=== PATIENT | female | born 1940 | race American Indian/Alaskan Native ===

== ENCOUNTER 2018-03-27 16:43 | Inpatient (IN) | payer MEDICARE, OTHER ==
[2018-03-27 16:44] VITALS: BMI 46.0
[2018-03-27] MEDS ORDERED: Sodium Chloride 0.9% 500 ML IV ONE (17:14)
[2018-03-27] MEDS ORDERED: Digoxin 500 mcg/2ml (0.5 mg/2ml) Inj IVP STA (17:16)
[2018-03-27 17:35] LABS: BASO # 0.1 K/uL (0.0-0.2); BASO % 0.5 % (0.0-2.0); EOS # 0.1 K/uL (0.0-0.7); EOS % 0.5 % (0.0-4.0); HEMOGLOBIN 15.3 g/dL (11.0-16.0); MEAN CELL VOLUME 88.7 fL (81.0-99.0); MEAN CORPUSCULAR HEMOGLOBIN 29.4 pg (27.0-31.0); MEAN CORPUSCULAR HGB CONC 33.2 g/dL (33.0-37.0); MEAN PLATELET VOLUME 7.6 fL (7.2-11.7); MONO # 0.4 K/uL (0.0-0.8); MONO % 3.6 % (0.0-10.0); NEUT # 8.6 K/uL (1.8-7.0); NEUT % 85.4 % (50.0-75.0); NRBC % 0.1 % (0.0-2.0); RBC 5.19 Mil/uL (3.80-5.20); WHITE BLOOD COUNT 10.1 K/uL (4.8-10.8)
[2018-03-27 17:43] LABS: INR 1.3; PROTHROMBIN TIME 14.3 SECONDS (9.7-12.2)
[2018-03-27 17:48] LABS: VENOUS BLOOD GAS BASE EXCESS -5.4 mmol/L (0.0-2.0); VENOUS BLOOD GAS PCO2 34 mmHg (40-60); VENOUS BLOOD GAS PO2 12 mm/Hg (30-55); VENOUS BLOOD PH 7.36 (7.32-7.43)
[2018-03-27 17:48] LABS: ALB/GLOB RATIO 0.8 (1.0-2.1); ALBUMIN 2.9 g/dL (3.5-5.0); ALT/SGPT 21 U/L (9-52); AST/SGOT 28 U/L (14-36); BLOOD UREA NITROGEN 9 mg/dL (7-17); CALCIUM 7.7 mg/dl (8.6-10.4); GFR NON-AFRICAN AMERICAN > 60
[2018-03-27] MEDS ORDERED: Digoxin 500 mcg/2ml (0.5 mg/2ml) Inj ONE (17:50)
[2018-03-27] MEDS ORDERED: Sodium Chloride 0.9% 1,000 ML ONE (17:50)
[2018-03-27 17:54] VITALS: PULSE 134
[2018-03-27] MEDS ORDERED: Potassium Chloride 20 mEq ER Tab PO STA (17:57)
[2018-03-27 17:59] LABS: CK-MB 0.52 ng/mL (0.0-3.38)
--- NOTE | 2018-03-27 18:04 | C.PDOC ---
Addendum entered and electronically signed by Tequila Zamora MD 03/27/18 21:31: Disposition Discussed With Dr.: Philippe Woods Comment: accepted the pt on his service and took over the care at 9:26 PM Doctor Will See Patient In The: ED Counseled Patient/Family Regarding: Studies Performed, Diagnosis Clinical Impression: Nausea, Vomiting, Diarrhea, Abdominal pain, Atrial fibrillation, Atrial fibrillation with RVR Disposition: HOSPITALIZED Disposition Time: 19:00 Condition: STABLE Stand Alone Forms: [facility] ([place]) Decision To Admit - Pt Status Changed To: Hospital Disposition Of: Inpatient - Admit Certification Admit to Inpatient:: After my assessment, the patient will require hospitalization for at least two midnights. This is because of the severity of symptoms shown, intensity of services needed, and/or the medical risk in this patient being treated as an outpatient. - InPatient: Physician Admission Certification:: After my assessment, the patient will requi re hospitalization for at least two midnights. This is because of the severity of symptoms shown, intensity of services needed, and/or the medical risk in this patient being treated as an outpatient. - . Bed Request Type: Telemetry Admitting Physician: Philippe Woods Patient Diagnosis: Nausea, Vomiting, Diarrhea, Abdominal pain, Atrial fibrillation, Atrial fibrillation with RVR Original Note: History Of Present Illness Patient sent to ED from [place] for evaluation of abdominal pain and several episodes of nausea/vomiting today. [place] records report coffee ground emesis, however patient denies this and states the vomit was watery. She also reports some diarrhea, and states that she has felt nauseous and had trouble keeping food down for the past several days. She admits to chronic LE edema x "several years", as well as a chronic sacral decubitus ulcer (patient is bedbound). She denies fever, chest pain, SOB, cough, dysuria. PMHx of atrial fibrillation, DM, HTN, CAD, CHF, chronic leg edema/dermatitis, breast/endometrial CA (s/p right lumpectomy and hysterectomy) Time Seen by Provider: 03/27/18 16:52 Chief Complaint (Nursing): Abdominal Pain History Per: Patient, Other ([place] records) History/Exam Limitations: no limitations Onset/Duration Of Symptoms: Days Current Symptoms Are (Timing): Still Present Severity: Moderate Quality Of Discomfort: "Pain" Associated Symptoms: Nausea, Vomiting, Diarrhea. denies: Urinary Symptoms Abnormal Vaginal Bleeding: No Past Medical History Reviewed: Historical Data, Nursing Documentation, Vital Signs Vital Signs: Last Vital Signs Temp 97.4 F L 03/27/18 17:12 Pulse 128 H 03/27/18 16:47 Resp 20 03/27/18 16:47 BP 118/82 03/27/18 16:47 Pulse Ox - Medical History PMH: Anemia, Arthritis (knees), Asthma, Bronchitis, CAD, Cardia Arrhythmia, CHF, HTN, Peripheral Edema (+3 ble edema) Denies: Depression, Chronic Kidney Disease Surgical History: Appendectomy - [facility] CLOSURE SKIN & SUBCUTANEOUS NEC (11/28/05) COMPUTERIZED TOMOGRAPHY (CT SCAN) OF PELVIC REGION (05/07/15) DRAINAGE OF PELVIC CAVITY, PERCUTANEOUS APPROACH, DIAGNOSTIC (05/07/15) EXCISE AXILLARY NODE (03/06/03) INJECT/INFUSE NEC (12/12/12) INSERTION OF INFUSION DEV INTO SUP VENA CAVA, PERC APPROACH (03/02/16) INSERTION OF VAD INTO L UP ARM SUBCU/FASCIA, PERC APPROACH (05/07/15) INTRODUCTION OF SERUM/TOX/VACCINE INTO MUSCLE, PERC APPROACH (05/07/15) LAPAROSCOP APPENDECTOMY (01/03/05) LAPAROSCOP LYSIS-PERITONEAL ADHES (01/03/05) NEBULIZER THERAPY (05/05/13) OT LAPAROSCOP LOCAL EXCIS/DESTRUCT OVARY (01/03/05) PACKED CELL TRANSFUSION (07/23/13) PERCUTAN NEEDLE BIOPSY OF BREAST (03/06/03) RADIOTHERAPEUT PROC NEC (07/23/13) REMOVAL OF INFUSION DEV FROM GREAT VESSEL, PRODUCTIVITY ENGINEER APPROACH (08/12/15) SUBTOTAL MASTECTOMY (03/06/03) TETANUS TOXOID ADMINIST (11/28/05) ULTRASONOGRAPHY OF LEFT UPPER EXTREMITY VEINS, GUIDANCE (05/07/15) ULTRASONOGRAPHY OF SUPERIOR VENA CAVA, GUIDANCE (03/02/16) Family History: States: Unknown Family Hx - Social History Hx Tobacco Use: No Hx Alcohol Use: No Hx Substance Use: No Physical Exam - Physical Exam Appears: Non-toxic, In Acute Distress (in mild discomfort ), Chronically Ill Skin: Other (see extremity exam) Eye(s): bilateral: Normal Inspection Oral Mucosa: Moist Cardiovascular: Rhythm Regular (irregularly irregular and tachycardic ) Respiratory: No Accessory Muscle Use, Rales (B/L bases), No Rhonchi, No Wheezing Gastrointestinal/Abdominal: Bowel Sounds, Soft, Tenderness (diffuse TTP, (-) McBUrney's, (-) Ruff's, midline surgical scar inferior to umbilicus, obese ), No Guarding, No Rebound Extremity: Pedal Edema (+3 pitting edema B/L LEs with chronic skin changes/stasis dermatitis) Pulses: Left Dorsalis Pedis: Normal, Right Dorsalis Pedis: Normal Neurological/Psych: Oriented x3 ED Course And Treatment - Laboratory Results Result Diagrams: 03/27/18 17:28 03/27/18 17:28 ECG: Interpreted By Me, Viewed By Me (atrial fibrillation 161 bpm with RVR, normal axis, no acute ST/T wave changes) ECG Interpretation: Abnormal O2 Sat by Pulse Oximetry: 97 (RA) Pulse Ox Interpretation: Normal Progress Note: Blood work, UA, EKG, CT abd/pelvis ordered. Patient given IV NS bolus, IV Protonix, IV Zofran. BP initially boderline and patient in rapid atrial fibrillation - IV digoxin given. Disposition - Disposition Disposition Time: 19:00 Condition: STABLE Forms: [facility] ([place]) - Clinical Impression Clinical Impression: Nausea, Vomiting, Diarrhea, Abdominal pain, Atrial fibrillation, Atrial fibrillation with RVR Physician Patient Turnover Patient Signed Over To: Tequila Zamora Handoff Comments: pending CT abd/pelvis, reassessment
[2018-03-27] MEDS ORDERED: Potassium Chloride 20 mEq ER Tab PO ONE (18:15)
[2018-03-27] MEDS ORDERED: Dextrose 5%/0.9% NS 1,000 ML IV ONE (18:33)
[2018-03-27] MEDS ORDERED: Iodixanol 320 MG/ML 100 ML BOTTLE IV ONE (18:36)
[2018-03-27] MEDS ORDERED: Potassium Chloride 20 mEq/15 ml LIQ UD ONE (18:53)
--- NOTE | 2018-03-27 19:05 | RAD ---
Date of service: 03/27/2018 PROCEDURE: Radiographs of the chest and abdomen (obstructive series) HISTORY: nausea/vomiting COMPARISON: No prior. TECHNIQUE: AP radiograph of the chest, with upright and supine radiographs of the abdomen. FINDINGS: CHEST: Enlargement of the cardiomediastinal silhouette. Prominence of the mediastinum may be related to uncoiled aorta, however alternatives including adenopathy/neoplasm cannot be excluded. Left hilar prominence. Mild pulmonary venous congestion. No significant pleural effusion. No definite pneumothorax. Right axillary clips. ABDOMEN AND PELVIS: Dilated air-filled bowel loops. IVC filter. Surgical clips within the abdomen. No definite free air. Degenerative changes. IMPRESSION: Enlarged cardiomediastinal silhouette. Left hilar prominence. Recommend CT of the chest with IV contrast for further evaluation. Mild pulmonary venous congestion. Dilated air-filled bowel loops. Small bowel obstruction is not excluded. Recommend CT of the abdomen and pelvis. IVC filter.
[2018-03-27] MEDS ORDERED: Potassium Chloride 20 mEq 100 ML ONE (19:24)
[2018-03-27] MEDS ORDERED: Piperacillin/Tazobact 3.375 gm 100 ML IVPB STA (21:17)
--- NOTE | 2018-03-27 22:29 | CP.PCM.HP ---
<Daniel Boland Kala - Last Filed: 03/28/18 08:25> History of Present Illness - History of Present Illness History of Present Illness: CC: vomiting 77 Y female w/ PMHx of multiple myocardial infraction, Afib w/ IVC filter in place, LE lymphedema, sacral ulcer, breast cancer w/ lumpectomy, ?endometrial adenocarcinoma w/ hysterectomy presented to ED from half-way following 2 episodes of black liquid vomiting. Patient states she has been vomiting for the past several months but today was the first time she noticed the black liquid vomiting. Patient states she has severe abdominal pain in the epigastric region following eating meals that also has been occurring for the past several months. Patient states she has about 1-2 loose BM per day and no constipation. Patient states she was fully functional about a year prior, but about 8 months ago, she had an episode of LOC that resulted in her become bedbound. Patient is unsure of the full medical course that resulted in becoming bedbound. ROS: Patient denies chest pain, SOB, dysuria, hematuria. Patient admits to having B/L LE leg swelling that is progressively worsening for the past several months. Additionally patient states she has a sacral ulcer present for the last several months. PMHx: multiple myocardial infraction, Afib w/ IVC filter in place, LE lymphedema, sacral ulcer, breast cancer, ?endometrial adenocarcinoma Meds: PSHx: Appendectomy, tonsilectomy, lumpectomy in R breast, hysterectomy Allergies: Erythromycin base - FHx: Father in 40s from [place], mother in 50s Social: Patient denies tobacco use, drug use Patient is Full Code Contact her daughter Eli @ [phone] in the event patient is unable to make medical decisions herself. Present on Admission - Present on Admission Any Indicators Present on Admission: Yes History of DVT/PE: No History of Uncontrolled Diabetes: No Urinary Catheter: No Decubitus Ulcer Present: Yes Decubitus Ulcer Location: sacrum Decubitus Ulcer Stage: Unstageable Review of Systems - Constitutional Constitutional: absent: Anorexia, Chills, Daytime Sleepiness - EENT Eyes: absent: Blind Spots, Blurred Vision Ears: absent: Disequilibrium - Respiratory Respiratory: absent: Dyspnea - Psychiatric Psychiatric: absent: Anxiety Past Patient History - Infectious Disease Hx of Infectious Diseases: None - Tetanus Immunizations Tetanus Immunization: Unknown - Past Social History Smoking Status: Never Smoked - CARDIAC Hx Cardia Arrhythmia: Yes Hx Congestive Heart Failure: Yes Hx Hypertension: Yes Hx Peripheral Edema: Yes (+3 ble edema) - PULMONARY Hx Asthma: Yes Hx Bronchitis: Yes - NEUROLOGICAL Hx Neurological Disorder: Yes (right hand/arm tremors) - HEENT Hx HEENT Problems: (wears glasses) - RENAL Hx Chronic Kidney Disease: No - ENDOCRINE/METABOLIC Hx Endocrine Disorders: No - HEMATOLOGICAL/ONCOLOGICAL Hx Anemia: Yes - INTEGUMENTARY Hx Dermatological Problems: Yes (HEEL PRESSURE ULCER ,L DTI AND STAGE 1 LEFT LATERAL SIDE,MASD SKIN FOLDS,) Other/Comment: INCONTINENCE ASSOCIATED SKIN DERMATITIS MULTIPLE BILATERAL BUTTOCKS , left lower abd pinhole wound that drains ysterectomy surgical juan pablo +mrsa 06/11/15, ble +3 edema ble edema redness dry flakey skin with weeping no open wounds, skin is discolored, both feet dry flakey skin, multiple scars from boils that healed to lower donald, buttocks redness excoriated, pt refusing to turn for assesment - MUSCULOSKELETAL/RHEUMATOLOGICAL Hx Arthritis: Yes (knees) - GASTROINTESTINAL Hx Gastrointestinal Disorders: No - GENITOURINARY/GYNECOLOGICAL Hx Incontinence: Yes Other/Comment: vaginal bleeding on and off x 14 yrs has stopped after hyst in 2014 - PSYCHIATRIC Hx Depression: No Hx Substance Use: No - SURGICAL HISTORY Hx Appendectomy: Yes - ANESTHESIA Hx Anesthesia: Yes Hx Anesthesia Reactions: No Meds Allergies/Adverse Reactions: Allergies Allergy/AdvReac Type Severity Reaction Status Date / Time erythromycin base Allergy ANAPHYLAXIS Verified 03/27/18 16:58 Physical Exam - Constitutional Appears: Non-toxic, No Acute Distress - Head Exam Head Exam: ATRAUMATIC, NORMAL INSPECTION, NORMOCEPHALIC - Eye Exam Eye Exam: EOMI, Normal appearance - ENT Exam ENT Exam: Mucous Membranes Moist Additional comments: Missing teeth - Neck Exam Neck exam: Positive for: Normal Inspection - Respiratory Exam Respiratory Exam: Decreased Breath Sounds. absent: Rales, Rhonchi, Wheezes - Cardiovascular Exam Cardiovascular Exam: +S1, +S2. absent: Systolic Murmur - GI/Abdominal Exam GI & Abdominal Exam: Normal Bowel Sounds, Soft. absent: Distended - Extremities Exam Extremities exam: Positive for: calf tenderness, joint swelling, pedal edema, tenderness, pedal pulses present Additional comments: sever lymphedemia - Back Exam Additional comments: unstagable sacral ulcer - Neurological Exam Neurological exam: Alert, CN II-XII Intact, Oriented x3 - Psychiatric Exam Psychiatric exam: Normal Affect, Normal Mood - Skin Skin Exam: Dry, Intact, Normal Color, Warm Results - Vital Signs Recent Vital Signs: Last Vital Signs Temp 97.4 F L 03/27/18 17:12 Pulse 71 03/27/18 20:10 Resp 16 03/27/18 20:10 BP 131/71 03/27/18 20:10 Pulse Ox 97 03/27/18 20:10 - Labs Result Diagrams: 03/27/18 17:28 03/27/18 17:28 Labs: Laboratory Results - last 24 hr 03/27/18 03/27/18 03/27/18 17:28 17:28 17:28 WBC 10.1 RBC 5.19 Hgb 15.3 Hct 46.0 MCV 88.7 MCH 29.4 MCHC 33.2 RDW 17.0 H Plt Count 430 H MPV 7.6 Neut % (Auto) 85.4 H Lymph % (Auto) 10.0 L Bath % (Auto) 3.6 Eos % (Auto) 0.5 Baso % (Auto) 0.5 Neut # (Auto) 8.6 H Lymph # (Auto) 1.0 Bath # (Auto) 0.4 Eos # (Auto) 0.1 Baso # (Auto) 0.1 PT 14.3 H INR 1.3 APTT 38 H pO2 VBG pH VBG pCO2 VBG HCO3 VBG Total CO2 VBG O2 Sat (Calc) VBG Base Excess VBG Potassium Glucose Lactate FiO2 Crit Value Called To Crit Value Called By Crit Value Read Back Blood Gas Notified Time Sodium 144 Potassium 3.1 L Chloride 103 Carbon Dioxide 30 Anion Gap 14 BUN 9 Creatinine 0.6 L Est GFR ( Amer) > 60 Est GFR (Non-Af Amer) > 60 Random Glucose 97 Calcium 7.7 L Total Bilirubin 0.9 AST 28 ALT 21 Alkaline Phosphatase 152 H Total Creatine Kinase 30 CK-MB (Mass) 0.52 Troponin I < 0.0120 Total Protein 6.3 Albumin 2.9 L Globulin 3.5 Albumin/Globulin Ratio 0.8 L Lipase Venous Blood Potassium Blood Type Antibody Screen Antibody Identification 10/23/18 10/23/18 10/23/18 17:40 17:43 21:00 WBC RBC Hgb Hct MCV MCH MCHC RDW Plt Count MPV Neut % (Auto) Lymph % (Auto) Bath % (Auto) Eos % (Auto) Baso % (Auto) Neut # (Auto) Lymph # (Auto) Bath # (Auto) Eos # (Auto) Baso # (Auto) PT INR APTT pO2 12 L VBG pH 7.36 VBG pCO2 34 L VBG HCO3 18.4 VBG Total CO2 20.2 L VBG O2 Sat (Calc) 16.8 L VBG Base Excess -5.4 L VBG Potassium 2.6 L Glucose 23 L* Lactate 0.5 L FiO2 21.0 Crit Value Called To Dr villalba Crit Value Called By [facility] Crit Value Read Back Y Blood Gas Notified Time 1748 Sodium 139.0 Potassium Chloride 104.0 Carbon Dioxide Anion Gap BUN Creatinine Est GFR ( Amer) Est GFR (Non-Af Amer) Random Glucose Calcium Total Bilirubin AST ALT Alkaline Phosphatase Total Creatine Kinase CK-MB (Mass) Troponin I Total Protein Albumin Globulin Albumin/Globulin Ratio Lipase 95 Venous Blood Potassium 2.6 L Blood Type B NEGATIVE Antibody Screen Positive Antibody Identification Anti D Assessment & Plan - Assessment and Plan (Free Text) Assessment: 77 Y female w/ PMHx of multiple myocardial infraction, Afib w/ IVC filter in place, LE lymphedema, sacral ulcer, breast cancer w/ lumpectomy, ?endometrial adenocarcinoma w/ hysterectomy presented to ED from half-way following 2 episodes of black liquid vomiting Afib w/ RVR - digoxin 0.5 mg given in ED, resolved - continue to monitor - F/u Cardio, Dr. Bryant recs - c/w home medications: metoprolol tartrate 50 mg BID Lasix 40 mg daily Bumex 1mg daily - F/u Echo Pneumonia - CT: opacity in right lower lobe, consistent w/ developing pneumonia. fatty liver, probable left adenoma, IVC filter in place, diffuse anasarca, probably partial small bowel - WBC: 10.1, Temp 97.5 - Zosyn 3.375 mg Q6H - F/u blood cultures - F/u strep pneumonia, legionella, mycoplasma Abdominal pain Partial SBO vs Peptic Ulcer/Gastritis - Stable H/H: 15.3/46 - Xray: Enlarged cardiomediastinal silhouette. Left hilar prominence. Recommend CT of the chest with IV contrast for further evaluation. Mild pulmonary venous congestion. Dilated air-filled bowel loops. Small bowel obstruction is not excluded. Recommend CT of the abdomen and pelvis. IVC filter. - CT : fatty liver, probable left adenoma, IVC filter in place, diffuse anasarca, probably partial small bowel - Protonix 40 mg Q12 Sacral ulcer - Wound care - Turn & reposition Q4H - F/u wound culture Lymphadema - Wound care - Turn & reposition Q4H - Lasix 40 mg daily - Bumex 1mg daily Constipation - C/w home medicine Loperamide 1mg Q6 PRN Prophylaxis - GI: protonix 40 mg Q12 - F/u PT/OT - Liquid diet <Philippe Woods - Last Filed: 03/29/18 06:36> Results - Vital Signs Recent Vital Signs: Last Vital Signs Temp 97.8 F 03/28/18 23:10 Pulse 85 03/29/18 04:05 Resp 20 03/28/18 23:10 BP 102/58 L 03/28/18 23:10 Pulse Ox 95 03/28/18 23:10 - Labs Result Diagrams: 03/28/18 07:44 03/28/18 07:44 Labs: Laboratory Results - last 24 hr 03/27/18 03/28/18 03/28/18 17:55 07:44 07:44 WBC 7.2 RBC 4.93 Hgb 14.8 Hct 44.0 MCV 89.2 MCH 29.9 MCHC 33.5 RDW 16.9 H Plt Count 333 MPV 7.7 Neut % (Auto) 71.2 Lymph % (Auto) 19.8 L Bath % (Auto) 6.0 Eos % (Auto) 2.2 Baso % (Auto) 0.8 Neut # (Auto) 5.2 Lymph # (Auto) 1.4 Bath # (Auto) 0.4 Eos # (Auto) 0.2 Baso # (Auto) 0.1 PT INR Sodium 144 Potassium 3.0 L Chloride 107 Carbon Dioxide 27 Anion Gap 13 BUN 8 Creatinine 0.6 L Est GFR ( Amer) > 60 Est GFR (Non-Af Amer) > 60 POC Glucose (mg/dL) 72 Random Glucose 62 L Hemoglobin A1c Calcium 7.2 L Phosphorus 2.6 Magnesium 1.0 L* Total Bilirubin 1.0 AST 20 ALT 21 Alkaline Phosphatase 121 NT-Pro-B Natriuret Pep 4370 H Total Protein 5.6 L Albumin 2.5 L Globulin 3.2 Albumin/Globulin Ratio 0.8 L Mycoplasma pneumon IgM 03/28/18 03/28/18 03/28/18 07:52 11:24 13:49 WBC RBC Hgb Hct MCV MCH MCHC RDW Plt Count MPV Neut % (Auto) Lymph % (Auto) Bath % (Auto) Eos % (Auto) Baso % (Auto) Neut # (Auto) Lymph # (Auto) Bath # (Auto) Eos # (Auto) Baso # (Auto) PT INR Sodium Potassium Chloride Carbon Dioxide Anion Gap BUN Creatinine Est GFR ( Amer) Est GFR (Non-Af Amer) POC Glucose (mg/dL) 87 Random Glucose Hemoglobin A1c 5.1 Calcium Phosphorus Magnesium Total Bilirubin AST ALT Alkaline Phosphatase NT-Pro-B Natriuret Pep Total Protein Albumin Globulin Albumin/Globulin Ratio Mycoplasma pneumon IgM Negative 03/28/18 03/28/18 15:27 16:34 WBC RBC Hgb Hct MCV MCH MCHC RDW Plt Count MPV Neut % (Auto) Lymph % (Auto) Bath % (Auto) Eos % (Auto) Baso % (Auto) Neut # (Auto) Lymph # (Auto) Bath # (Auto) Eos # (Auto) Baso # (Auto) PT 15.9 H INR 1.5 Sodium Potassium Chloride Carbon Dioxide Anion Gap BUN Creatinine Est GFR ( Amer) Est GFR (Non-Af Amer) POC Glucose (mg/dL) 74 Random Glucose Hemoglobin A1c Calcium Phosphorus Magnesium Total Bilirubin AST ALT Alkaline Phosphatase NT-Pro-B Natriuret Pep Total Protein Albumin Globulin Albumin/Globulin Ratio Mycoplasma pneumon IgM Assessment & Plan - Date & Time Date: 03/29/18 (I have seen and examined the patient. I agree with the findings and plan of care as documented by Dr. Boland. Patient with atrial fib with RVR. Digoxin given in ED with adequate response. Monitor on tele. Abdominal pain with partial small bowel obstruction. Consult to surgery. Pneumonia. Zosyn for now. Monitor hemodynamic status. Monitor for acute changes.) Time: 06:34 Attending/Attestation - Attestation I have personally seen and examined this patient.: Yes I have fully participated in the care of the patient.: Yes I have reviewed all pertinent clinical information: Yes
[2018-03-27] MEDS ORDERED: Lactated Ringer's 1,000 ML IV SCH (23:30)
[2018-03-28] MEDS ORDERED: Oxycodone/Acetaminophen 5/325 mg Tab PO PRN (03:50)
--- NOTE | 2018-03-28 03:58 | CP.PCM.CON ---
History of Present Illness - History of Present Illness History of Present Illness: Surgery 77 Y female w/ PMHx of multiple myocardial infraction, Afib on Digoxin, IVC filter in place, LE lymphedema, sacral ulcer, breast cancer w/ lumpectomy, ?endometrial adenocarcinoma w/ hysterectomy [facility] following coffee ground color emesis. Patient states she has been vomiting for the past several months but today was the first time she noticed the black liquid vomiting. pain in the epigastric region following eating meals that also has been occurring for the past several months. Patient states she has about 1-2 loose BM per day and no constipation. Denies bloody BM. Pt takes multiple medication and doesn;t know what meds she takes. Pt had not seen GI. Denies fever, CP, SOB. PMHx: multiple myocardial infraction, Afib w/ IVC filter in place, LE lymphedema, sacral ulcer, breast cancer, ?endometrial adenocarcinoma Meds: PSHx: Appendectomy, tonsilectomy, lumpectomy in R breast, hysterectomy Allergies: Erythromycin base - FHx: Father in 40s from [place], mother in 50s Social: Patient denies tobacco use, drug use Review of Systems - Review of Systems Review of Systems: see hpi Past Patient History - Infectious Disease Hx of Infectious Diseases: None - Tetanus Immunizations Tetanus Immunization: Unknown - Past Medical History & Family History Past Medical History?: Yes - Past Social History Smoking Status: Never Smoked - CARDIAC Hx Cardia Arrhythmia: Yes Hx Congestive Heart Failure: Yes Hx Hypertension: Yes Hx Peripheral Edema: Yes (+3 ble edema) - PULMONARY Hx Asthma: Yes Hx Bronchitis: Yes - NEUROLOGICAL Hx Neurological Disorder: Yes (right hand/arm tremors) - HEENT Hx HEENT Problems: (wears glasses) - RENAL Hx Chronic Kidney Disease: No - ENDOCRINE/METABOLIC Hx Endocrine Disorders: No - HEMATOLOGICAL/ONCOLOGICAL Hx Anemia: Yes - INTEGUMENTARY Hx Dermatological Problems: Yes (HEEL PRESSURE ULCER ,L DTI AND STAGE 1 LEFT LATERAL SIDE,MASD SKIN FOLDS,) Other/Comment: INCONTINENCE ASSOCIATED SKIN DERMATITIS MULTIPLE BILATERAL BUTTOCKS , left lower abd pinhole wound that drains ysterectomy surgical juan pablo +mrsa 06/11/15, ble +3 edema ble edema redness dry flakey skin with weeping no open wounds, skin is discolored, both feet dry flakey skin, multiple scars from boils that healed to lower donald, buttocks redness excoriated, pt refusing to turn for assesment - MUSCULOSKELETAL/RHEUMATOLOGICAL Hx Arthritis: Yes (knees) - GASTROINTESTINAL Hx Gastrointestinal Disorders: No - GENITOURINARY/GYNECOLOGICAL Hx Incontinence: Yes Other/Comment: vaginal bleeding on and off x 14 yrs has stopped after hyst in 2015 - PSYCHIATRIC Hx Depression: No Hx Substance Use: No - SURGICAL HISTORY Hx Appendectomy: Yes - ANESTHESIA Hx Anesthesia: Yes Hx Anesthesia Reactions: No Meds Allergies/Adverse Reactions: Allergies Allergy/AdvReac Type Severity Reaction Status Date / Time erythromycin base Allergy ANAPHYLAXIS Verified 03/27/18 16:58 - Medications Medications: Current Medications Dextrose/Sodium Chloride (Dextrose 5%/0.9% Ns 1000 Ml) 1,000 mls @ 100 mls/hr IV .Q10H ONE Stop: 03/28/18 04:32 Last Admin: 03/27/18 23:42 Dose: 100 mls/hr Ondansetron HCl (Zofran Inj) 4 mg IVP Q4 PRN PRN Reason: Nausea/Vomiting Oxycodone/Acetaminophen (Percocet 5/325 Mg Tab) 2 tab PO Q4H PRN PRN Reason: Pain, moderate (4-7) Stop: 03/31/18 03:51 Pantoprazole Sodium (Protonix Inj) 40 mg IVP Q12H RAFAEL Physical Exam - Constitutional Appears: No Acute Distress - Head Exam Head Exam: ATRAUMATIC, NORMAL INSPECTION, NORMOCEPHALIC - Eye Exam Eye Exam: EOMI, Normal appearance, PERRL Pupil Exam: NORMAL ACCOMODATION, PERRL - ENT Exam ENT Exam: Mucous Membranes Moist, Normal Exam - Neck Exam Neck exam: Positive for: Normal Inspection - Respiratory Exam Respiratory Exam: NORMAL BREATHING PATTERN - Cardiovascular Exam Cardiovascular Exam: Tachycardia - GI/Abdominal Exam GI & Abdominal Exam: Soft. absent: Distended, Firm, Guarding, Hernia, Rigid, Tenderness - Exam Exam: NORMAL INSPECTION - Back Exam Back exam: NORMAL INSPECTION - Neurological Exam Neurological exam: Alert, Oriented x3 - Psychiatric Exam Psychiatric exam: Normal Affect, Normal Mood - Skin Skin Exam: Normal Color, Warm Results - Vital Signs Recent Vital Signs: Last Vital Signs Temp 97.5 F L 03/28/18 00:56 Pulse 61 03/28/18 03:32 Resp 20 03/28/18 00:56 BP 98/64 L 03/28/18 00:56 Pulse Ox 100 03/27/18 23:40 - Labs Result Diagrams: 03/27/18 17:28 03/27/18 17:28 Labs: Laboratory Results - last 24 hr 03/27/18 03/27/18 03/27/18 17:28 17:28 17:28 WBC 10.1 RBC 5.19 Hgb 15.3 Hct 46.0 MCV 88.7 MCH 29.4 MCHC 33.2 RDW 17.0 H Plt Count 430 H MPV 7.6 Neut % (Auto) 85.4 H Lymph % (Auto) 10.0 L [place] % (Auto) 3.6 Eos % (Auto) 0.5 Baso % (Auto) 0.5 Neut # (Auto) 8.6 H Lymph # (Auto) 1.0 [place] # (Auto) 0.4 Eos # (Auto) 0.1 Baso # (Auto) 0.1 PT 14.3 H INR 1.3 APTT 38 H pO2 VBG pH VBG pCO2 VBG HCO3 VBG Total CO2 VBG O2 Sat (Calc) VBG Base Excess VBG Potassium Glucose Lactate FiO2 Crit Value Called To Crit Value Called By Crit Value Read Back Blood Gas Notified Time Sodium 144 Potassium 3.1 L Chloride 103 Carbon Dioxide 30 Anion Gap 14 BUN 9 Creatinine 0.6 L Est GFR ( Amer) > 60 Est GFR (Non-Af Amer) > 60 Random Glucose 97 Calcium 7.7 L Total Bilirubin 0.9 AST 28 ALT 21 Alkaline Phosphatase 152 H Total Creatine Kinase 30 CK-MB (Mass) 0.52 Troponin I < 0.0120 Total Protein 6.3 Albumin 2.9 L Globulin 3.5 Albumin/Globulin Ratio 0.8 L Lipase Venous Blood Potassium Blood Type Antibody Screen Antibody Identification Antigen Identification 03/27/18 03/27/18 03/27/18 17:40 17:43 21:00 WBC RBC Hgb Hct MCV MCH MCHC RDW Plt Count MPV Neut % (Auto) Lymph % (Auto) [place] % (Auto) Eos % (Auto) Baso % (Auto) Neut # (Auto) Lymph # (Auto) [place] # (Auto) Eos # (Auto) Baso # (Auto) PT INR APTT pO2 12 L VBG pH 7.36 VBG pCO2 34 L VBG HCO3 18.4 VBG Total CO2 20.2 L VBG O2 Sat (Calc) 16.8 L VBG Base Excess -5.4 L VBG Potassium 2.6 L Glucose 23 L* Lactate 0.5 L FiO2 21.0 Crit Value Called To Dr villalba Crit Value Called By Cosme ugarte Crit Value Read Back Y Blood Gas Notified Time 1748 Sodium 139.0 Potassium Chloride 104.0 Carbon Dioxide Anion Gap BUN Creatinine Est GFR ( Amer) Est GFR (Non-Af Amer) Random Glucose Calcium Total Bilirubin AST ALT Alkaline Phosphatase Total Creatine Kinase CK-MB (Mass) Troponin I Total Protein Albumin Globulin Albumin/Globulin Ratio Lipase 95 Venous Blood Potassium 2.6 L Blood Type B NEGATIVE Antibody Screen Positive Antibody Identification Anti D Antigen Identification C Antigen - NEGATIVE Assessment & Plan - Assessment and Plan (Free Text) Assessment: sxs are more consistent with hiatal hernia/gastritis : epigastric pain, coffee ground emesis, regular BM. CT shows possible partial SBO -CLD -PPI IV BID -Recommend GI -Pain/nausea control -Pain control: avoid NSAIDs Will DW Dr. Zimmerman
[2018-03-28 07:58] LABS: BASO # 0.1 K/uL (0.0-0.2); BASO % 0.8 % (0.0-2.0); EOS # 0.2 K/uL (0.0-0.7); EOS % 2.2 % (0.0-4.0); HEMOGLOBIN 14.8 g/dL (11.0-16.0); LYMPH # 1.4 K/uL (1.0-4.3); LYMPH % 19.8 % (20.0-40.0); MEAN CELL VOLUME 89.2 fL (81.0-99.0); MEAN CORPUSCULAR HEMOGLOBIN 29.9 pg (27.0-31.0); MEAN CORPUSCULAR HGB CONC 33.5 g/dL (33.0-37.0); MEAN PLATELET VOLUME 7.7 fL (7.2-11.7); MONO # 0.4 K/uL (0.0-0.8); NEUT # 5.2 K/uL (1.8-7.0); NEUT % 71.2 % (50.0-75.0); RBC 4.93 Mil/uL (3.80-5.20); RED CELL DISTRIBUTION WIDTH 16.9 % (11.5-14.5); WHITE BLOOD COUNT 7.2 K/uL (4.8-10.8)
[2018-03-28 08:38] LABS: ALB/GLOB RATIO 0.8 (1.0-2.1); ALBUMIN 2.5 g/dL (3.5-5.0); ALT/SGPT 21 U/L (9-52); AST/SGOT 20 U/L (14-36); BLOOD UREA NITROGEN 8 mg/dL (7-17); CALCIUM 7.2 mg/dl (8.6-10.4); GFR NON-AFRICAN AMERICAN > 60
[2018-03-28 08:44] LABS: B-TYPE NATRIURETIC PEPTIDE 4370 pg/mL (0-900)
[2018-03-28] MEDS ORDERED: Potassium Chloride 20 mEq ER Tab PO ONE (08:57)
[2018-03-28] MEDS ORDERED: Magnesium Sulfate 1 gm in D5W 1 GM/100 ML BAG IVPB ONE (08:59)
[2018-03-28] MEDS ORDERED: Potassium Chloride 20 mEq/15 ml LIQ UD PO ONE (09:00)
[2018-03-28] MEDS: Piperacillin/Tazobact 3.375 GM in Sodium Chloride 100 ML IVPB SCH ×3 (09:10→21:41)
[2018-03-28] MEDS: Magnesium Sulfate 1 gm in D5W 1 GM/100 ML BAG IVPB SCH ×2 (09:50→10:02)
[2018-03-28] MEDS ORDERED: Azithromycin 500 MG in Sodium Chloride 0.9% 250 ML IVPB SCH (10:00)
[2018-03-28] MEDS ORDERED: Pantoprazole 40 mg EC Tab PO SCH (10:00)
[2018-03-28] MEDS: Lactobacillus Acidophilus 500 MU Cap PO SCH ×3 (10:21→20:25)
[2018-03-28 10:33] VITALS: RESP 20
--- NOTE | 2018-03-28 11:15 | CP.PCM.CON ---
History of Present Illness - History of Present Illness History of Present Illness: palliative consult requested by Doctor Paredes for Code status discussion Patient is a 77 yo lady admitted from [place] with coffee ground emesis and abdominal pain. Patient reported being nauseated for several months now. Patient is not ab le to tolerate food and reports losing about 102 lb/year. The symptoms of nausea and abdominal pain begun after LANDY surgery patient had a year ago. Patient is able to tolerate only certain food brought in to [place] from outside. Patient attributes her weight loss to a [place] food which she does not like. Abd X Ray on admission suggested possible SBO and CT scan was suggested. Blood sugar on admission very low , only 23. patient started on liquid diet and IV fluids. K 30., Mg 10.. Both are being replaced. PMH: chronic LEs edema, bed boud X 1 year now, A Fib, multiple MIs, breast/ endometrium cancer, S/P right mastectomy and LANDY, Hx of falls, last time she was on the floor X 3 days unable to get up , before she was found by her son. Soc. Hx: , [place] resident, has 2 sons and 2 daughters Fa. Hx: father at age of 40 from [place] and mother at age of 50 Review of Systems - Constitutional Constitutional: Weight Loss - EENT Eyes: absent: As Per HPI, Blind Spots, Blurred Vision, Change in Vision, Decreased Night Vision, Diplopia, Discharge, Dry Eye, Exophthalmos, Floaters, Ir ritation, Itchy Eyes, Loss of Peripheral Vision, Pain, Photophobia, Requires Corrective Lenses, Sees Flashes, Spots in Vision, Tunnel Vision, Other Visual Disturbances, Loss of Vision, Other Ears: absent: As Per HPI, Decreased Hearing, Ear Discharge, Ear Pain, Tinnitus, Abnormal Hearing, Disequilibrium, Dizziness, Other Nose/Mouth/Throat: absent: As Per HPI, Epistaxis, Nasal Congestion, Nasal Discharge, Nasal Obstruction, Nasal Trauma, Nose Pain, Post Nasal Drip, Sinus Pain, Sinus Pressure, Bleeding Gums, Change in Voice, Dental Pain, Dry Mouth, Dysphagia, Halitosis, Hoarsness, Lip Swelling, Mouth Lesions, Mouth Pain, Odynophagia, Sore Throat, Throat Swelling, Tongue Swelling, Facial Pain, Neck Pain, Neck Mass, Other - Breasts Additional comments: right mastectomy - Cardiovascular Cardiovascular: Edema, Leg Edema, Pedal Edema - Respiratory Respiratory: absent: As Per HPI, Cough, Dyspnea, Hemoptysis, Dyspnea on Exertio n, Wheezing, Snoring, Stridor, Pain on Inspiration, Chest Congestion, Excessive Mucous Production, Change in Mucous Color, Pain with Coughing, Other - Gastrointestinal Gastrointestinal: Abdominal Pain, Nausea, Vomiting - Genitourinary Genitourinary: absent: As Per HPI, Change in Urinary Stream, Difficulty Urinating, Dysuria, Flank Pain, Hematuria, Pyuria, Nocturia, Urinary Incontinence, Urinary Frequency, Urinary Hesitance, Urinary Urgency, Voiding Freq/Small Amts, Freq UTI, Hx Renal/Bladder Calculi, Hx /Renal Surgery, Bladder Distension, Other - Reproductive: Female Reproductive:Female: Post Menopausal - Menstruation Menstruation: Post Menopausal - Musculoskeletal Musculoskeletal: Abnormal Gait, Joint Swelling, Limited Range of Motion, Muscle Weakness, Stiffness - Integumentary Additional comments: edema and discoloration of LEs - Neurological Neurological: Frequent Falls - Psychiatric Psychiatric: Anxiety, Depression - Endocrine Endocrine: absent: As Per HPI, Change in Body Appearance, Change in Libido, Cold Intolorance, Deepening of Voice, Excessive Sweating, Fatigue, Flushing, Heat Intolorance, Increase in Ring/Shoe/Hat Size, Palpitations, Polydipsia, Polyphagia, Polyuria, Other - Hematologic/Lymphatic Hematologic: absent: As Per HPI, Easy Bleeding, Easy Bruising, Lymphadenopathy, Other Past Patient History - Infectious Disease Hx of Infectious Diseases: None - Tetanus Immunizations Tetanus Immunization: Unknown - Past Medical History & Family History Past Medical History?: Yes - Past Social History Smoking Status: Never Smoked - CARDIAC Hx Cardia Arrhythmia: Yes Hx Congestive Heart Failure: Yes Hx Hypertension: Yes Hx Peripheral Edema: Yes (+3 ble edema) - PULMONARY Hx Asthma: Yes Hx Bronchitis: Yes - NEUROLOGICAL Hx Neurological Disorder: Yes (right hand/arm tremors) - HEENT Hx HEENT Problems: (wears glasses) - RENAL Hx Chronic Kidney Disease: No - ENDOCRINE/METABOLIC Hx Endocrine Disorders: No - HEMATOLOGICAL/ONCOLOGICAL Hx Anemia: Yes - INTEGUMENTARY Hx Dermatological Problems: Yes (HEEL PRESSURE ULCER ,L DTI AND STAGE 1 LEFT LATERAL SIDE,MASD SKIN FOLDS,) Other/Comment: INCONTINENCE ASSOCIATED SKIN DERMATITIS MULTIPLE BILATERAL BUTTOCKS , left lower abd pinhole wound that drains ysterectomy surgical juan pablo +mrsa 06/11/15, ble +3 edema ble edema redness dry flakey skin with weeping no open wounds, skin is discolored, both feet dry flakey skin, multiple scars from boils that healed to lower donald, buttocks redness excoriated, pt refusing to turn for assesment - MUSCULOSKELETAL/RHEUMATOLOGICAL Hx Arthritis: Yes (knees) - GASTROINTESTINAL Hx Gastrointestinal Disorders: No - GENITOURINARY/GYNECOLOGICAL Hx Incontinence: Yes Other/Comment: vaginal bleeding on and off x 14 yrs has stopped after hyst in 2014 - PSYCHIATRIC Hx Depression: No Hx Substance Use: No - SURGICAL HISTORY Hx Appendectomy: Yes - ANESTHESIA Hx Anesthesia: Yes Hx Anesthesia Reactions: No Meds Allergies/Adverse Reactions: Allergies Allergy/AdvReac Type Severity Reaction Status Date / Time erythromycin base Allergy ANAPHYLAXIS Verified 03/27/18 16:58 - Medications Medications: Current Medications Bumetanide (Bumex) 1 mg PO DAILY [facility] Last Admin: 03/28/18 10:21 Dose: Not Given Furosemide (Lasix) 40 mg PO DAILY [facility] Last Admin: 03/28/18 10:01 Dose: Not Given Gabapentin (Neurontin) 300 mg PO BID [facility] Last Admin: 03/28/18 10:21 Dose: Not Given Heparin Sodium (Porcine) (Heparin) 5,000 units SC Q8 [facility] Piperacillin Sod/Tazobactam (Sod 3.375 gm/ Sodium Chloride) 100 mls @ 200 mls/hr IVPB Q6H [facility]; Protocol Last Admin: 03/28/18 09:10 Dose: Not Given Potassium Chloride (Potassium Chloride 20 Meq/100 Ml) 20 meq in 100 mls @ 50 mls/hr IVPB ONCE ONE Stop: 03/28/18 11:29 Last Admin: 03/28/18 09:50 Dose: 50 mls/hr Lactobacillus Acidophilus (Bacid Acidophilus) 1 cap PO BID [facility] Last Admin: 03/28/18 10:21 Dose: Not Given Loperamide HCl (Imodium) 1 mg PO Q6H PRN PRN Reason: Diarrhea Metoprolol Tartrate (Lopressor) 50 mg PO BID [facility] Last Admin: 03/28/18 10:01 Dose: Not Given Ondansetron HCl (Zofran Inj) 4 mg IVP Q4 PRN PRN Reason: Nausea/Vomiting Last Admin: 03/28/18 05:46 Dose: 4 mg Oxycodone/Acetaminophen (Percocet 5/325 Mg Tab) 2 tab PO Q4H PRN PRN Reason: Pain, moderate (4-7) Stop: 03/31/18 03:51 Pantoprazole Sodium (Protonix Inj) 40 mg IVP Q12H [facility] Last Admin: 03/28/18 04:14 Dose: 40 mg Physical Exam - Constitutional Appears: No Acute Distress, Chronically Ill - Head Exam Head Exam: ATRAUMATIC, NORMAL INSPECTION, NORMOCEPHALIC - Eye Exam Eye Exam: EOMI, Normal appearance, PERRL Pupil Exam: NORMAL ACCOMODATION, PERRL - ENT Exam ENT Exam: Mucous Membranes Moist, Normal Exam - Neck Exam Neck exam: Positive for: Normal Inspection - Respiratory Exam Respiratory Exam: Decreased Breath Sounds, NORMAL BREATHING PATTERN - Cardiovascular Exam Cardiovascular Exam: Tachycardia, REGULAR RHYTHM - GI/Abdominal Exam GI & Abdominal Exam: Normal Bowel Sounds, Soft - Rectal Exam Rectal Exam: Deferred - Extremities Exam Extremities exam: Positive for: joint swelling, pedal edema, pedal pulses present - Back Exam Back exam: NORMAL INSPECTION - Neurological Exam Neurological exam: Alert, Oriented x3 - Psychiatric Exam Psychiatric exam: Anxious - Skin Skin Exam: Dry, Mottled Results - Vital Signs Recent Vital Signs: Last Vital Signs Temp 97.5 F L 03/28/18 00:56 Pulse 78 03/28/18 07:38 Resp 20 03/28/18 04:44 BP 96/63 L 03/28/18 04:44 Pulse Ox 100 03/27/18 23:40 - Labs Result Diagrams: 03/28/18 07:44 03/28/18 07:44 Labs: Laboratory Results - last 24 hr 03/27/18 03/27/18 03/27/18 17:28 17:28 17:28 WBC 10.1 RBC 5.19 Hgb 15.3 Hct 46.0 MCV 88.7 MCH 29.4 MCHC 33.2 RDW 17.0 H Plt Count 430 H MPV 7.6 Neut % (Auto) 85.4 H Lymph % (Auto) 10.0 L [place] % (Auto) 3.6 Eos % (Auto) 0.5 Baso % (Auto) 0.5 Neut # (Auto) 8.6 H Lymph # (Auto) 1.0 [place] # (Auto) 0.4 Eos # (Auto) 0.1 Baso # (Auto) 0.1 PT 14.3 H INR 1.3 APTT 38 H pO2 VBG pH VBG pCO2 VBG HCO3 VBG Total CO2 VBG O2 Sat (Calc) VBG Base Excess VBG Potassium Glucose Lactate FiO2 Crit Value Called To Crit Value Called By Crit Value Read Back Blood Gas Notified Time Sodium 144 Potassium 3.1 L Chloride 103 Carbon Dioxide 30 Anion Gap 14 BUN 9 Creatinine 0.6 L Est GFR ( Amer) > 60 Est GFR (Non-Af Amer) > 60 POC Glucose (mg/dL) Random Glucose 97 Hemoglobin A1c Calcium 7.7 L Phosphorus Magnesium Total Bilirubin 0.9 AST 28 ALT 21 Alkaline Phosphatase 152 H Total Creatine Kinase 30 CK-MB (Mass) 0.52 Troponin I < 0.0120 NT-Pro-B Natriuret Pep Total Protein 6.3 Albumin 2.9 L Globulin 3.5 Albumin/Globulin Ratio 0.8 L Lipase Venous Blood Potassium Blood Type Antibody Screen Antibody Identification Antigen Identification 03/27/18 03/27/18 03/27/18 17:40 17:43 17:55 WBC RBC Hgb Hct MCV MCH MCHC RDW Plt Count MPV Neut % (Auto) Lymph % (Auto) [place] % (Auto) Eos % (Auto) Baso % (Auto) Neut # (Auto) Lymph # (Auto) [place] # (Auto) Eos # (Auto) Baso # (Auto) PT INR APTT pO2 12 L VBG pH 7.36 VBG pCO2 34 L VBG HCO3 18.4 VBG Total CO2 20.2 L VBG O2 Sat (Calc) 16.8 L VBG Base Excess -5.4 L VBG Potassium 2.6 L Glucose 23 L* Lactate 0.5 L FiO2 21.0 Crit Value Called To Dr villalba Crit Value Called By Cosme sanidad Crit Value Read Back Y Blood Gas Notified Time 1748 Sodium 139.0 Potassium Chloride 104.0 Carbon Dioxide Anion Gap BUN Creatinine Est GFR ( Amer) Est GFR (Non-Af Amer) POC Glucose (mg/dL) 72 Random Glucose Hemoglobin A1c Calcium Phosphorus Magnesium Total Bilirubin AST ALT Alkaline Phosphatase Total Creatine Kinase CK-MB (Mass) Troponin I NT-Pro-B Natriuret Pep Total Protein Albumin Globulin Albumin/Globulin Ratio Lipase Venous Blood Potassium 2.6 L Blood Type B NEGATIVE Antibody Screen Positive Antibody Identification Anti D Antigen Identification C Antigen - NEGATIVE 03/27/18 03/28/18 03/28/18 21:00 07:44 07:44 WBC 7.2 RBC 4.93 Hgb 14.8 Hct 44.0 MCV 89.2 MCH 29.9 MCHC 33.5 RDW 16.9 H Plt Count 333 MPV 7.7 Neut % (Auto) 71.2 Lymph % (Auto) 19.8 L [place] % (Auto) 6.0 Eos % (Auto) 2.2 Baso % (Auto) 0.8 Neut # (Auto) 5.2 Lymph # (Auto) 1.4 [place] # (Auto) 0.4 Eos # (Auto) 0.2 Baso # (Auto) 0.1 PT INR APTT pO2 VBG pH VBG pCO2 VBG HCO3 VBG Total CO2 VBG O2 Sat (Calc) VBG Base Excess VBG Potassium Glucose Lactate FiO2 Crit Value Called To Crit Value Called By Crit Value Read Back Blood Gas Notified Time Sodium 144 Potassium 3.0 L Chloride 107 Carbon Dioxide 27 Anion Gap 13 BUN 8 Creatinine 0.6 L Est GFR ( Amer) > 60 Est GFR (Non-Af Amer) > 60 POC Glucose (mg/dL) Random Glucose 62 L Hemoglobin A1c Calcium 7.2 L Phosphorus 2.6 Magnesium 1.0 L* Total Bilirubin 1.0 AST 20 ALT 21 Alkaline Phosphatase 121 Total Creatine Kinase CK-MB (Mass) Troponin I NT-Pro-B Natriuret Pep 4370 H Total Protein 5.6 L Albumin 2.5 L Globulin 3.2 Albumin/Globulin Ratio 0.8 L Lipase 95 Venous Blood Potassium Blood Type Antibody Screen Antibody Identification Antigen Identification 03/28/18 07:52 WBC RBC Hgb Hct MCV MCH MCHC RDW Plt Count MPV Neut % (Auto) Lymph % (Auto) [place] % (Auto) Eos % (Auto) Baso % (Auto) Neut # (Auto) Lymph # (Auto) [place] # (Auto) Eos # (Auto) Baso # (Auto) PT INR APTT pO2 VBG pH VBG pCO2 VBG HCO3 VBG Total CO2 VBG O2 Sat (Calc) VBG Base Excess VBG Potassium Glucose Lactate FiO2 Crit Value Called To Crit Value Called By Crit Value Read Back Blood Gas Notified Time Sodium Potassium Chloride Carbon Dioxide Anion Gap BUN Creatinine Est GFR ( Amer) Est GFR (Non-Af Amer) POC Glucose (mg/dL) Random Glucose Hemoglobin A1c 5.1 Calcium Phosphorus Magnesium Total Bilirubin AST ALT Alkaline Phosphatase Total Creatine Kinase CK-MB (Mass) Troponin I NT-Pro-B Natriuret Pep Total Protein Albumin Globulin Albumin/Globulin Ratio Lipase Venous Blood Potassium Blood Type Antibody Screen Antibody Identification Antigen Identification Assessment & Plan - Assessment and Plan (Free Text) Assessment: Palliative consult Full Code, there is no Advance directive on chart, PPS 30% I reviewed Medical records, all diagnostic studies, examined and interviewed patient in the bed. Patient is alert, oriented X 3 with affect that is angry and speech clear. Patient reports being hungry and did not want to have clear liquid diet any more. Further patient requested decaffeinated drinks only. I discussed this with primary RN. Physical exam reveals bed bound, chronically ill lady. Breathing is normal with regular RR. Denies cough/SOB. Abdomen soft. Denies nausea at present. Reports nausea is present most of the time but abdominal pain bothers her even more. Patient feels that all these symptoms begun after LANDY surgery. She reports that abdominal pain gets even worse if she does not move her bowels daily. Despite having loose BMs, patient feels that Immodium makes her abdominal pain worse if she is not having daily BMs. LEs are severly edematous what is a chronic condition. Skin is dark around the ankles area and redish purplish up to the knees. Texture is rough and dry. Patient is unable to reposition her self in the bed due to weakness. Reports sacral pressure sore. I was not able to assess the pressure sore as it was difficult to turn patient in the bed. Even though patient reports losing some weight, she is still pretty heavy. Goals of care discussed. I elicited her perception of her condition and expectations of care. Very openly patient admitted being angry with her children as they visit only 1 -2 a month. She is also angry with the food, the diet and inability to ambulate. She used to move around the house with electric chir and a walker before falling at home 1 year ago. Patient does not like NH but understands she has no other choice. Patient wishes her nausea and abdominal pain go away and her diet is changed to a regular diet. I explained that the diet will be advanced based on CT abdomen results. We discussed use of antiemetics for longer time as on of the ways to promote her with normal nutrition. Code status discussed. Patient admits having made her Living Will . The copy is with her youngest on Katherin who lives in [place]. She states she made him POA. Patient states she instructed her son to withdraw all life support if meaningful recovery is not expected. Until than, she would want to be treated using all agressive measures including CPR, PEG, MV support. Patient stated " I ant to live". I supported her. Impression * Chronically ill lady * Nausea and vomiting * Abdominal pain * Limited mobility * Angry mood, depression * Subjective lack of family support * Wishes to have her life supported by all means regardless of quality of life. If the life support becomes only solution, patient instructed her youngest son to withdraw the care Suggestion * Continue Zofran IV PRN nausea * Advance diet as tolerated if supported by CT scan findings * GI consult * Reassure patient of her safety * Monitor for worsening of depression and mood disorder * promote skin integrity, air matress * FULL CODE Palliative care will remain available PRN to assist with care of this patient. Advance care planing 50 min
--- NOTE | 2018-03-28 11:55 | CT ---
Date of service: 03/27/2018 PROCEDURE: CT Abdomen and Pelvis with contrast HISTORY: nausea.vomiting, abdominal pain COMPARISON: Abdomen obstructive series 03/27/2018. TECHNIQUE: Following the intravenous administration of iodinated contrast material, a CT examination of the abdomen and pelvis performed from the domes of the diaphragms to the symphysis pubis with reformatted datasets provided in axial, sagittal and coronal planes. Oral contrast was not administered as per referring physician request. Coronal and sagittal reformats were generated. contrast dose: Visipaque 320, 100 cc Radiation dose: Total exam DLP = 1154.27 mGy-cm. This CT exam was performed using one or more of the following dose reduction techniques: Automated exposure control, adjustment of the mA and/or kV according to patient size, and/or use of iterative reconstruction technique. FINDINGS: LOWER THORAX: Cardiomegaly reiterated without definite pulmonary vascular congestion. Limited nonspecific ground-glass opacity right lower lobe. No pleural or pericardial effusion. Hiatal hernia. LIVER: Diminished attenuation is compatible with hepatic steatosis diffusely. Extensive artifacts from body habitus and the patient's arms obscures detail through the abdomen. No gross hepatic mass appreciable although enhancement appears slightly inhomogeneous. Inferior vena cava appears somewhat prominent and may reflect right or failure resulting in aforementioned enhancement pattern. GALLBLADDER AND BILE DUCTS: Unremarkable. PANCREAS: Unremarkable. No gross lesion or ductal dilatation. SPLEEN: Unremarkable. ADRENALS: A 2.3 x 2.0 cm left adrenal nodule with central calcification is identified with the right adrenal gland unremarkable. KIDNEYS AND URETERS: No obstructive uropathy bilaterally. 1.2 cm lucency seen related to the upper midpole left kidney laterally measuring 25 Hounsfield units potentially reflecting complex cyst or solid nodule. Bilateral renal parenchyma is otherwise nonfocal. VASCULATURE: No aortic aneurysm identified. No aortic atherosclerotic calcification or mural plaque present. Inferior vena cava filter is identified in place once again. BOWEL: Stomach appears largely collapsed. Evaluation the gastrointestinal tract is compromised by lack of oral contrast administration. Small bowel appears dilated more so proximally than distally without complete collapse of the distal small bowel. Significant retained fecal material and gas seen throughout the large bowel including rectosigmoid. Pattern reflects possible developing ileus versus partial or intermittent distal small bowel obstruction. APPENDIX: Postop changes seen inferior to the cecum which may reflect prior appendectomy. Appendix not identified. No CT evidence appendicitis. PERITONEUM: Trace free intra peritoneal gas is identified in the upper abdomen 2 or 3 tiny bubbles between the left and right lobes liver anteriorly and the upper abdominal wall. Extraluminal but likely loculated gas is intertwined with linear density in between bowel loops at the nondependent abdomen, frequently in the midline anteriorly. This may represent mucoid material or other soft tissue intermixed with gas. No nodularity is associated. It is not felt to represent pneumatosis involving small or large bowel. A circumferential changes are seen surrounding bowel loops to suggest that. LYMPH NODES: Unremarkable. No enlarged lymph nodes. BLADDER: Unremarkable. REPRODUCTIVE: Prior hysterectomy suggested. BONES: No acute fracture. OTHER FINDINGS: Edematous density changes seen in both intra and extra abdominal fat, as well as at the visualized lower chest, suggestive of anasarca. IMPRESSION: 1. A developing ileus or distal partial or intermittent small bowel obstruction. Trace free intra peritoneal gas identified. Further, intra peritoneal extra luminal gas is loculated with thin strands of soft tissue which may represent mucoid material is of uncertain origin and scattered between primarily small but occasional large-bowel loops at the nondependent abdomen. Clinically correlate for potential bowel perforation. Further clinical correlation is advised. Correlation is 2. 1.2 cm nodule left adrenal gland with central calcification. Consider follow-up MRI without contrast but with chemical shift imaging. 3. Hepatic steatosis. Inhomogeneous enhancement of the liver may reflect right heart failure. 4. Other lesser findings as discussed above. Partial discordance with preliminary report provided by [facility] 03/27/2018 particularly regarding limited free intra peritoneal gas. Findings discussed with Dr. Paredes with written down and read back verification 03/27/2018 11:45 a.m..
--- NOTE | 2018-03-28 12:11 | CP.PCM.CON ---
<Matthew Mendes - Last Filed: 03/28/18 15:16> History of Present Illness - History of Present Illness History of Present Illness: Matthew Mendes, PGY-[address] Bryant Ms. Giron is a 77 year old bed-bound female w/ PMHx of multiple myocardial infarctions, Afib w/ IVC filter in place, LE lymphedema, sacral ulcer, breast cancer w/ lumpectomy, who is being evaluated due to reported black liquid vomiting at care home. Patient states she has been vomiting for the past several months but noticed black liquid vomiting yesterday that prompted evaluation. Patient denies current chest pain, palpitations, shortness of breath, dizziness, blurry vision and headaches. Patient admits to bilateral LE swelling that has progressively worsened for the past several months. Upon speaking to patient family, they report that patient resides in a care home, and that patient is noncompliant with her medications. They state that unless someone ensures she swallows the pills, she usually throws them away. Patient denies knowing the names of her medications, and states that unless she receives food, she refuses to take her pills. PMHx: multiple myocardial infraction, Afib w/ IVC filter in place, LE lymphedema, sacral ulcer, breast cancer, ?endometrial adenocarcinoma Meds: Metoprolol 50 BID, Lasix 40 daily, Bumetanide 1 mg PSHx: Appendectomy, tonsilectomy, lumpectomy in R breast, hysterectomy FHx: Father in 40s from [place], mother in 50s Social: Patient denies tobacco use, drug use Past Patient History - Infectious Disease Hx of Infectious Diseases: None - Tetanus Immunizations Tetanus Immunization: Unknown - Past Medical History & Family History Past Medical History?: Yes - Past Social History Smoking Status: Never Smoked - CARDIAC Hx Cardia Arrhythmia: Yes Hx Congestive Heart Failure: Yes Hx Hypertension: Yes Hx Peripheral Edema: Yes (+3 ble edema) - PULMONARY Hx Asthma: Yes Hx Bronchitis: Yes - NEUROLOGICAL Hx Neurological Disorder: Yes (right hand/arm tremors) - HEENT Hx HEENT Problems: (wears glasses) - RENAL Hx Chronic Kidney Disease: No - ENDOCRINE/METABOLIC Hx Endocrine Disorders: No - HEMATOLOGICAL/ONCOLOGICAL Hx Anemia: Yes - INTEGUMENTARY Hx Dermatological Problems: Yes (HEEL PRESSURE ULCER ,L DTI AND STAGE 1 LEFT LATERAL SIDE,MASD SKIN FOLDS,) Other/Comment: INCONTINENCE ASSOCIATED SKIN DERMATITIS MULTIPLE BILATERAL BUTTOCKS , left lower abd pinhole wound that drains ysterectomy surgical juan pablo +mrsa 06/11/15, ble +3 edema ble edema redness dry flakey skin with weeping no open wounds, skin is discolored, both feet dry flakey skin, multiple scars from boils that healed to lower donald, buttocks redness excoriated, pt refusing to turn for assesment - MUSCULOSKELETAL/RHEUMATOLOGICAL Hx Arthritis: Yes (knees) - GASTROINTESTINAL Hx Gastrointestinal Disorders: No - GENITOURINARY/GYNECOLOGICAL Hx Incontinence: Yes Other/Comment: vaginal bleeding on and off x 14 yrs has stopped after hyst in 2015 - PSYCHIATRIC Hx Depression: No Hx Substance Use: No - SURGICAL HISTORY Hx Appendectomy: Yes - ANESTHESIA Hx Anesthesia: Yes Hx Anesthesia Reactions: No Meds Allergies/Adverse Reactions: Allergies Allergy/AdvReac Type Severity Reaction Status Date / Time erythromycin base Allergy ANAPHYLAXIS Verified 03/27/18 16:58 - Medications Medications: Current Medications Bumetanide (Bumex) 1 mg PO DAILY [facility] Last Admin: 03/28/18 10:21 Dose: Not Given Furosemide (Lasix) 40 mg PO DAILY [facility] Last Admin: 03/28/18 10:01 Dose: Not Given Gabapentin (Neurontin) 300 mg PO BID [facility] Last Admin: 03/28/18 10:21 Dose: Not Given Piperacillin Sod/Tazobactam (Sod 3.375 gm/ Sodium Chloride) 100 mls @ 200 mls/hr IVPB Q6H [facility]; Protocol Last Admin: 03/28/18 09:10 Dose: Not Given Lactobacillus Acidophilus (Bacid Acidophilus) 1 cap PO BID [facility] Last Admin: 03/28/18 10:21 Dose: Not Given Loperamide HCl (Imodium) 1 mg PO Q6H PRN PRN Reason: Diarrhea Metoprolol Tartrate (Lopressor) 50 mg PO BID [facility] Last Admin: 03/28/18 10:01 Dose: Not Given Ondansetron HCl (Zofran Inj) 4 mg IVP Q4 PRN PRN Reason: Nausea/Vomiting Last Admin: 03/28/18 05:46 Dose: 4 mg Oxycodone/Acetaminophen (Percocet 5/325 Mg Tab) 2 tab PO Q4H PRN PRN Reason: Pain, moderate (4-7) Stop: 03/31/18 03:51 Pantoprazole Sodium (Protonix Inj) 40 mg IVP Q12H [facility] Last Admin: 03/28/18 04:14 Dose: 40 mg Physical Exam - Constitutional Appears: Well, Non-toxic, No Acute Distress - Head Exam Head Exam: ATRAUMATIC, NORMOCEPHALIC - Eye Exam Eye Exam: EOMI, Normal appearance - ENT Exam ENT Exam: Mucous Membranes Moist - Respiratory Exam Respiratory Exam: Decreased Breath Sounds, Rales (RLL), NORMAL BREATHING PATTERN. absent: Chest Wall Tenderness, Clear to Auscultation Bilateral (RLL) - Cardiovascular Exam Cardiovascular Exam: Irregular Rhythm, +S1, +S2 - GI/Abdominal Exam GI & Abdominal Exam: Soft. absent: Distended - Extremities Exam Extremities exam: Positive for: pedal edema (4+ edema with venous stasis skin changes). Negative for: normal inspection - Back Exam Back exam: absent: CVA tenderness (L), CVA tenderness (R) - Neurological Exam Neurological exam: Abnormal Gait (bedbound), Alert, Oriented x3 Results - Vital Signs Recent Vital Signs: Last Vital Signs Temp 97.5 F L 03/28/18 00:56 Pulse 78 03/28/18 07:38 Resp 20 03/28/18 04:44 BP 96/63 L 03/28/18 04:44 Pulse Ox 100 03/27/18 23:40 - Labs Result Diagrams: 03/28/18 07:44 03/28/18 07:44 Labs: Laboratory Results - last 24 hr 03/27/18 03/27/18 03/27/18 17:28 17:28 17:28 WBC 10.1 RBC 5.19 Hgb 15.3 Hct 46.0 MCV 88.7 MCH 29.4 MCHC 33.2 RDW 17.0 H Plt Count 430 H MPV 7.6 Neut % (Auto) 85.4 H Lymph % (Auto) 10.0 L [place] % (Auto) 3.6 Eos % (Auto) 0.5 Baso % (Auto) 0.5 Neut # (Auto) 8.6 H Lymph # (Auto) 1.0 [place] # (Auto) 0.4 Eos # (Auto) 0.1 Baso # (Auto) 0.1 PT 14.3 H INR 1.3 APTT 38 H pO2 VBG pH VBG pCO2 VBG HCO3 VBG Total CO2 VBG O2 Sat (Calc) VBG Base Excess VBG Potassium Glucose Lactate FiO2 Crit Value Called To Crit Value Called By Crit Value Read Back Blood Gas Notified Time Sodium 144 Potassium 3.1 L Chloride 103 Carbon Dioxide 30 Anion Gap 14 BUN 9 Creatinine 0.6 L Est GFR ( Amer) > 60 Est GFR (Non-Af Amer) > 60 POC Glucose (mg/dL) Random Glucose 97 Hemoglobin A1c Calcium 7.7 L Phosphorus Magnesium Total Bilirubin 0.9 AST 28 ALT 21 Alkaline Phosphatase 152 H Total Creatine Kinase 30 CK-MB (Mass) 0.52 Troponin I < 0.0120 NT-Pro-B Natriuret Pep Total Protein 6.3 Albumin 2.9 L Globulin 3.5 Albumin/Globulin Ratio 0.8 L Lipase Venous Blood Potassium Blood Type Antibody Screen Antibody Identification Antigen Identification 03/27/18 03/27/18 03/27/18 17:40 17:43 17:55 WBC RBC Hgb Hct MCV MCH MCHC RDW Plt Count MPV Neut % (Auto) Lymph % (Auto) [place] % (Auto) Eos % (Auto) Baso % (Auto) Neut # (Auto) Lymph # (Auto) [place] # (Auto) Eos # (Auto) Baso # (Auto) PT INR APTT pO2 12 L VBG pH 7.36 VBG pCO2 34 L VBG HCO3 18.4 VBG Total CO2 20.2 L VBG O2 Sat (Calc) 16.8 L VBG Base Excess -5.4 L VBG Potassium 2.6 L Glucose 23 L* Lactate 0.5 L FiO2 21.0 Crit Value Called To Dr villalba Crit Value Called By [facility] Crit Value Read Back Y Blood Gas Notified Time 1748 Sodium 139.0 Potassium Chloride 104.0 Carbon Dioxide Anion Gap BUN Creatinine Est GFR ( Amer) Est GFR (Non-Af Amer) POC Glucose (mg/dL) 72 Random Glucose Hemoglobin A1c Calcium Phosphorus Magnesium Total Bilirubin AST ALT Alkaline Phosphatase Total Creatine Kinase CK-MB (Mass) Troponin I NT-Pro-B Natriuret Pep Total Protein Albumin Globulin Albumin/Globulin Ratio Lipase Venous Blood Potassium 2.6 L Blood Type B NEGATIVE Antibody Screen Positive Antibody Identification Anti D Antigen Identification C Antigen - NEGATIVE 03/27/18 03/28/18 03/28/18 21:00 07:44 07:44 WBC 7.2 RBC 4.93 Hgb 14.8 Hct 44.0 MCV 89.2 MCH 29.9 MCHC 33.5 RDW 16.9 H Plt Count 333 MPV 7.7 Neut % (Auto) 71.2 Lymph % (Auto) 19.8 L [place] % (Auto) 6.0 Eos % (Auto) 2.2 Baso % (Auto) 0.8 Neut # (Auto) 5.2 Lymph # (Auto) 1.4 [place] # (Auto) 0.4 Eos # (Auto) 0.2 Baso # (Auto) 0.1 PT INR APTT pO2 VBG pH VBG pCO2 VBG HCO3 VBG Total CO2 VBG O2 Sat (Calc) VBG Base Excess VBG Potassium Glucose Lactate FiO2 Crit Value Called To Crit Value Called By Crit Value Read Back Blood Gas Notified Time Sodium 144 Potassium 3.0 L Chloride 107 Carbon Dioxide 27 Anion Gap 13 BUN 8 Creatinine 0.6 L Est GFR ( Amer) > 60 Est GFR (Non-Af Amer) > 60 POC Glucose (mg/dL) Random Glucose 62 L Hemoglobin A1c Calcium 7.2 L Phosphorus 2.6 Magnesium 1.0 L* Total Bilirubin 1.0 AST 20 ALT 21 Alkaline Phosphatase 121 Total Creatine Kinase CK-MB (Mass) Troponin I NT-Pro-B Natriuret Pep 4370 H Total Protein 5.6 L Albumin 2.5 L Globulin 3.2 Albumin/Globulin Ratio 0.8 L Lipase 95 Venous Blood Potassium Blood Type Antibody Screen Antibody Identification Antigen Identification 03/28/18 07:52 WBC RBC Hgb Hct MCV MCH MCHC RDW Plt Count MPV Neut % (Auto) Lymph % (Auto) [place] % (Auto) Eos % (Auto) Baso % (Auto) Neut # (Auto) Lymph # (Auto) [place] # (Auto) Eos # (Auto) Baso # (Auto) PT INR APTT pO2 VBG pH VBG pCO2 VBG HCO3 VBG Total CO2 VBG O2 Sat (Calc) VBG Base Excess VBG Potassium Glucose Lactate FiO2 Crit Value Called To Crit Value Called By Crit Value Read Back Blood Gas Notified Time Sodium Potassium Chloride Carbon Dioxide Anion Gap BUN Creatinine Est GFR ( Amer) Est GFR (Non-Af Amer) POC Glucose (mg/dL) Random Glucose Hemoglobin A1c 5.1 Calcium Phosphorus Magnesium Total Bilirubin AST ALT Alkaline Phosphatase Total Creatine Kinase CK-MB (Mass) Troponin I NT-Pro-B Natriuret Pep Total Protein Albumin Globulin Albumin/Globulin Ratio Lipase Venous Blood Potassium Blood Type Antibody Screen Antibody Identification Antigen Identification Assessment & Plan - Assessment and Plan (Free Text) Assessment: Assessment: Ms. Giron is a 77 year old bed-bound female w/ PMHx of multiple myocardial infarctions, A. fib. w/ IVC filter in place, LE lymphedema, sacral ulcer, breast cancer w/ lumpectomy, who is being evaluated due to vomiting. Heart rates have been controlled 65-95 bpm today. Plan: Afib w/ RVR, medication noncompliance - sustained A fib today, HR 78 bpm, asymptomatic - paroxysmal tachycardia likely 2/2 noncompliance with medications - C/w home medications: metoprolol tartrate 50 mg BID, Lasix 40 mg daily, Bumex 1mg daily - F/u Echo reports - Discussion with patient and family for compliance to take medications; issue has been discussed and documented on previous admissions Case reviewed and plan discussed with Dr. Bryant. Future recommendations per Dr. Bryant. Matthew Mendes, PGY-1 <Festus Bryant - Last Filed: 03/28/18 16:00> Meds - Medications Medications: Current Medications Bumetanide (Bumex) 1 mg PO DAILY [facility] Last Admin: 03/28/18 10:21 Dose: Not Given Furosemide (Lasix) 40 mg PO DAILY [facility] Last Admin: 03/28/18 10:01 Dose: Not Given Gabapentin (Neurontin) 300 mg PO BID [facility] Last Admin: 03/28/18 10:21 Dose: Not Given Piperacillin Sod/Tazobactam (Sod 3.375 gm/ Sodium Chloride) 100 mls @ 200 mls/hr IVPB Q6H [facility]; Protocol Last Admin: 03/28/18 14:33 Dose: 200 mls/hr Lactobacillus Acidophilus (Bacid Acidophilus) 1 cap PO BID [facility] Last Admin: 03/28/18 10:21 Dose: Not Given Loperamide HCl (Imodium) 1 mg PO Q6H PRN PRN Reason: Diarrhea Metoprolol Tartrate (Lopressor) 50 mg PO BID [facility] Last Admin: 03/28/18 10:01 Dose: Not Given Ondansetron HCl (Zofran Inj) 4 mg IVP Q4 PRN PRN Reason: Nausea/Vomiting Last Admin: 03/28/18 05:46 Dose: 4 mg Oxycodone/Acetaminophen (Percocet 5/325 Mg Tab) 2 tab PO Q4H PRN PRN Reason: Pain, moderate (4-7) Stop: 03/31/18 03:51 Pantoprazole Sodium (Protonix Inj) 40 mg IVP Q12H [facility] Last Admin: 03/28/18 04:14 Dose: 40 mg Results - Vital Signs Recent Vital Signs: Last Vital Signs Temp 97.5 F L 03/28/18 00:56 Pulse 78 03/28/18 07:38 Resp 20 03/28/18 04:44 BP 96/63 L 03/28/18 04:44 Pulse Ox 100 03/27/18 23:40 - Labs Result Diagrams: 03/28/18 07:44 03/28/18 07:44 Labs: Laboratory Results - last 24 hr 03/27/18 03/27/18 03/27/18 17:28 17:28 17:28 WBC 10.1 RBC 5.19 Hgb 15.3 Hct 46.0 MCV 88.7 MCH 29.4 MCHC 33.2 RDW 17.0 H Plt Count 430 H MPV 7.6 Neut % (Auto) 85.4 H Lymph % (Auto) 10.0 L [place] % (Auto) 3.6 Eos % (Auto) 0.5 Baso % (Auto) 0.5 Neut # (Auto) 8.6 H Lymph # (Auto) 1.0 [place] # (Auto) 0.4 Eos # (Auto) 0.1 Baso # (Auto) 0.1 PT 14.3 H INR 1.3 APTT 38 H pO2 VBG pH VBG pCO2 VBG HCO3 VBG Total CO2 VBG O2 Sat (Calc) VBG Base Excess VBG Potassium Glucose Lactate FiO2 Crit Value Called To Crit Value Called By Crit Value Read Back Blood Gas Notified Time Sodium 144 Potassium 3.1 L Chloride 103 Carbon Dioxide 30 Anion Gap 14 BUN 9 Creatinine 0.6 L Est GFR ( Amer) > 60 Est GFR (Non-Af Amer) > 60 POC Glucose (mg/dL) Random Glucose 97 Hemoglobin A1c Calcium 7.7 L Phosphorus Magnesium Total Bilirubin 0.9 AST 28 ALT 21 Alkaline Phosphatase 152 H Total Creatine Kinase 30 CK-MB (Mass) 0.52 Troponin I < 0.0120 NT-Pro-B Natriuret Pep Total Protein 6.3 Albumin 2.9 L Globulin 3.5 Albumin/Globulin Ratio 0.8 L Lipase Venous Blood Potassium Blood Type Antibody Screen Antibody Identification Antigen Identification 03/27/18 03/27/18 03/27/18 17:40 17:43 17:55 WBC RBC Hgb Hct MCV MCH MCHC RDW Plt Count MPV Neut % (Auto) Lymph % (Auto) [place] % (Auto) Eos % (Auto) Baso % (Auto) Neut # (Auto) Lymph # (Auto) [place] # (Auto) Eos # (Auto) Baso # (Auto) PT INR APTT pO2 12 L VBG pH 7.36 VBG pCO2 34 L VBG HCO3 18.4 VBG Total CO2 20.2 L VBG O2 Sat (Calc) 16.8 L VBG Base Excess -5.4 L VBG Potassium 2.6 L Glucose 23 L* Lactate 0.5 L FiO2 21.0 Crit Value Called To Dr villalba Crit Value Called By [facility] Crit Value Read Back Y Blood Gas Notified Time 1748 Sodium 139.0 Potassium Chloride 104.0 Carbon Dioxide Anion Gap BUN Creatinine Est GFR ( Amer) Est GFR (Non-Af Amer) POC Glucose (mg/dL) 72 Random Glucose Hemoglobin A1c Calcium Phosphorus Magnesium Total Bilirubin AST ALT Alkaline Phosphatase Total Creatine Kinase CK-MB (Mass) Troponin I NT-Pro-B Natriuret Pep Total Protein Albumin Globulin Albumin/Globulin Ratio Lipase Venous Blood Potassium 2.6 L Blood Type B NEGATIVE Antibody Screen Positive Antibody Identification Anti D Antigen Identification C Antigen - NEGATIVE 03/27/18 03/28/18 03/28/18 21:00 07:44 07:44 WBC 7.2 RBC 4.93 Hgb 14.8 Hct 44.0 MCV 89.2 MCH 29.9 MCHC 33.5 RDW 16.9 H Plt Count 333 MPV 7.7 Neut % (Auto) 71.2 Lymph % (Auto) 19.8 L [place] % (Auto) 6.0 Eos % (Auto) 2.2 Baso % (Auto) 0.8 Neut # (Auto) 5.2 Lymph # (Auto) 1.4 [place] # (Auto) 0.4 Eos # (Auto) 0.2 Baso # (Auto) 0.1 PT INR APTT pO2 VBG pH VBG pCO2 VBG HCO3 VBG Total CO2 VBG O2 Sat (Calc) VBG Base Excess VBG Potassium Glucose Lactate FiO2 Crit Value Called To Crit Value Called By Crit Value Read Back Blood Gas Notified Time Sodium 144 Potassium 3.0 L Chloride 107 Carbon Dioxide 27 Anion Gap 13 BUN 8 Creatinine 0.6 L Est GFR ( Amer) > 60 Est GFR (Non-Af Amer) > 60 POC Glucose (mg/dL) Random Glucose 62 L Hemoglobin A1c Calcium 7.2 L Phosphorus 2.6 Magnesium 1.0 L* Total Bilirubin 1.0 AST 20 ALT 21 Alkaline Phosphatase 121 Total Creatine Kinase CK-MB (Mass) Troponin I NT-Pro-B Natriuret Pep 4370 H Total Protein 5.6 L Albumin 2.5 L Globulin 3.2 Albumin/Globulin Ratio 0.8 L Lipase 95 Venous Blood Potassium Blood Type Antibody Screen Antibody Identification Antigen Identification 03/28/18 03/28/18 07:52 15:27 WBC RBC Hgb Hct MCV MCH MCHC RDW Plt Count MPV Neut % (Auto) Lymph % (Auto) [place] % (Auto) Eos % (Auto) Baso % (Auto) Neut # (Auto) Lymph # (Auto) [place] # (Auto) Eos # (Auto) Baso # (Auto) PT 15.9 H INR 1.5 APTT pO2 VBG pH VBG pCO2 VBG HCO3 VBG Total CO2 VBG O2 Sat (Calc) VBG Base Excess VBG Potassium Glucose Lactate FiO2 Crit Value Called To Crit Value Called By Crit Value Read Back Blood Gas Notified Time Sodium Potassium Chloride Carbon Dioxide Anion Gap BUN Creatinine Est GFR ( Amer) Est GFR (Non-Af Amer) POC Glucose (mg/dL) Random Glucose Hemoglobin A1c 5.1 Calcium Phosphorus Magnesium Total Bilirubin AST ALT Alkaline Phosphatase Total Creatine Kinase CK-MB (Mass) Troponin I NT-Pro-B Natriuret Pep Total Protein Albumin Globulin Albumin/Globulin Ratio Lipase Venous Blood Potassium Blood Type Antibody Screen Antibody Identification Antigen Identification Attending/Attestation - Attestation I have personally seen and examined this patient.: Yes I have fully participated in the care of the patient.: Yes I have reviewed all pertinent clinical information: Yes Notes (Text): 03/28/18 15:57 pt seen and evaluated ? SBO / ? perforation known hx of non-compliance in the past followed by in the past afib - chronic cont rate control with BB minimal ambulation with wheelchair b/l LE edema s/p IVC fiter in the past if sx indicated will need stress test
[2018-03-28 15:41] LABS: INR 1.5; PROTHROMBIN TIME 15.9 SECONDS (9.7-12.2)
--- NOTE | 2018-03-28 16:37 | CP.PCM.PN ---
<Saira Taylor - Last Filed: 03/28/18 17:37> Subjective - Date & Time of Evaluation Date of Evaluation: 03/28/18 Time of Evaluation: 16:35 - Subjective Subjective: Patient seen and examined at bedside today. She states she is hungry and wants to eat. She has been refusing PO meds. Objective - Vital Signs/Intake and Output Vital Signs (last 24 hours): Temp Pulse Resp BP Pulse Ox 97.6 F 90 20 94/61 L 98 03/28/18 15:07 03/28/18 15:07 03/28/18 15:07 03/28/18 15:07 03/28/18 15:07 Intake and Output: 03/28/18 03/28/18 06:59 18:59 Intake Total 150 Output Total 200 Balance -50 - Medications Medications: Current Medications Bumetanide (Bumex) 1 mg PO DAILY [facility] Last Admin: 03/28/18 10:21 Dose: Not Given Furosemide (Lasix) 40 mg PO DAILY [facility] Last Admin: 03/28/18 10:01 Dose: Not Given Gabapentin (Neurontin) 300 mg PO BID [facility] Last Admin: 03/28/18 10:21 Dose: Not Given Piperacillin Sod/Tazobactam (Sod 3.375 gm/ Sodium Chloride) 100 mls @ 200 mls/hr IVPB Q6H [facility]; Protocol Last Admin: 03/28/18 14:33 Dose: 200 mls/hr Lactobacillus Acidophilus (Bacid Acidophilus) 1 cap PO BID [facility] Last Admin: 03/28/18 10:21 Dose: Not Given Loperamide HCl (Imodium) 1 mg PO Q6H PRN PRN Reason: Diarrhea Metoprolol Tartrate (Lopressor) 50 mg PO BID [facility] Last Admin: 03/28/18 10:01 Dose: Not Given Ondansetron HCl (Zofran Inj) 4 mg IVP Q4 PRN PRN Reason: Nausea/Vomiting Last Admin: 03/28/18 05:46 Dose: 4 mg Oxycodone/Acetaminophen (Percocet 5/325 Mg Tab) 2 tab PO Q4H PRN PRN Reason: Pain, moderate (4-7) Stop: 03/31/18 03:51 Pantoprazole Sodium (Protonix Inj) 40 mg IVP Q12H [facility] Last Admin: 03/28/18 04:14 Dose: 40 mg - Labs Labs: 03/28/18 07:44 03/28/18 07:44 PT 15.9 SECONDS (9.7-12.2) H 03/28/18 15:27 INR 1.5 03/28/18 15:27 APTT 38 SECONDS (21-34) H 03/27/18 17:28 - Constitutional Appears: Non-toxic, Agitated - Head Exam Head Exam: ATRAUMATIC - Respiratory Exam Respiratory Exam: Clear to Ausculation Bilateral, NORMAL BREATHING PATTERN - Cardiovascular Exam Cardiovascular Exam: Irregular Rhythm - GI/Abdominal Exam GI & Abdominal Exam: Soft, Normal Bowel Sounds Additional comments: tenderness to palpation RLQ - Extremities Exam Additional comments: bilateral LE lymphedema - Skin Additional comments: peeling dry lower extremity edema Assessment and Plan - Assessment and Plan (Free Text) Assessment: 77 y/o f with PMHx of multiple MIs, Afib with IVF filter, LE lymphedema, stage 1 sacral ulcer, and breast CA with lumpectomy presented to the ED on 03/27 for black liquid vomiting x 2 from the [facility]. General surgery and GI currently on board for possible bowel perf. Patient currently hemodynamically stable 1) Bowel perforation vs. SBO vs. gastritis -CT abd/pelvis concerning for possible bowel perforation per radiology. Unlikely SBO as patient endorsed BM. Avoid NSAIDS for possible gastritis. -Follow surgery recs - patient SBO r/o and clear to resume diet -resume heparin 2) PNA -zosyn 3.375 q6h -monitor oxygen, currently on 2L NC -consider CXR if no improvement after 72h abx 3) Afib with RVR -currently on tele, HR 70s -continue to monitor on tele 4) bilateral lymphedema -hold lasix and bumex due to hypokalemia -consider elevation of legs -wound care consult ordered for lymphedema skin care 5) Hypomagenesemia and hypokalemia -repleted this morning, continue to monitor 6) stage 1 sacral ulcer -wound care consult -pressure care - turn patient, modify bed if possible case discussed with Dr. Lena Taylor, DO PGY-1 <Kimberly Paredes V - Last Filed: 03/28/18 21:49> Objective - Vital Signs/Intake and Output Vital Signs (last 24 hours): Temp Pulse Resp BP Pulse Ox 97.6 F 90 20 94/61 L 98 03/28/18 15:07 03/28/18 15:07 03/28/18 15:07 03/28/18 15:07 03/28/18 15:07 Intake and Output: 03/28/18 03/29/18 18:59 06:59 Intake Total 150 Output Total 200 Balance -50 - Medications Medications: Current Medications Bumetanide (Bumex) 1 mg PO DAILY [facility] Last Admin: 03/28/18 10:21 Dose: Not Given Furosemide (Lasix) 40 mg PO DAILY [facility] Last Admin: 03/28/18 10:01 Dose: Not Given Gabapentin (Neurontin) 300 mg PO BID [facility] Last Admin: 03/28/18 18:00 Dose: Not Given Piperacillin Sod/Tazobactam (Sod 3.375 gm/ Sodium Chloride) 100 mls @ 200 mls/hr IVPB Q6H [facility]; Protocol Last Admin: 03/28/18 14:33 Dose: 200 mls/hr Lactobacillus Acidophilus (Bacid Acidophilus) 1 cap PO BID [facility] Last Admin: 03/28/18 20:25 Dose: Not Given Loperamide HCl (Imodium) 1 mg PO Q6H PRN PRN Reason: Diarrhea Metoprolol Tartrate (Lopressor) 50 mg PO BID [facility] Last Admin: 03/28/18 18:00 Dose: Not Given Ondansetron HCl (Zofran Inj) 4 mg IVP Q4 PRN PRN Reason: Nausea/Vomiting Last Admin: 03/28/18 05:46 Dose: 4 mg Oxycodone/Acetaminophen (Percocet 5/325 Mg Tab) 2 tab PO Q4H PRN PRN Reason: Pain, moderate (4-7) Stop: 03/31/18 03:51 Pantoprazole Sodium (Protonix Inj) 40 mg IVP Q12H [facility] Last Admin: 03/28/18 18:00 Dose: 40 mg - Labs Labs: 03/28/18 07:44 03/28/18 07:44 PT 15.9 SECONDS (9.7-12.2) H 03/28/18 15:27 INR 1.5 03/28/18 15:27 APTT 38 SECONDS (21-34) H 03/27/18 17:28 Attending/Attestation - Attestation I have personally seen and examined this patient.: Yes I have fully participated in the care of the patient.: Yes I have reviewed all pertinent clinical information, including history, physical exam and plan: Yes Notes (Text): Patient seen, examined and case discussed with day-time resident. Patient noted abdominal pain following LANDY about one year ago. Patient reports she has been throwing up at the [facility] for the past 4 days, but reports she does not like the food at the facility either. Patient reports she is very eager to real food. She is tired of not eating what she wants. When I saw the patient this morning, I explained to her that the radiologist called concern for potential "free air" which meant she could have infection outside of her bowel and I have asked the surgeon and surgery resident to come back to re-evaluate given the CT findings. Patient was very angry as I held off her diet. I spoke with Dr. Zimmerman and resident, Dr. Luna who came to re-evaluate the patient in light of the CT findings; noting patient is having bowel movements, no surgery intervention, may advance diet. Patient noted to chronic have lymphdema for many years and reports when someone comes to clean the dirt crusting over it usually improves. It is rubor, dusky, dirty crust. We have put in wound care to assess the legs. Patient is mainly bed bound; unable to turn patient to assess sacral decub. There was no vomitting noted during the day; unclear what color vomitus she is throwing up. Discussed with cardiology, patient does not take medications; unclear how compliant she is. Patient has reported to me she has had 2 heart attacks in the past, one little over little ago. Both potassium and magnesium were low today; both were repleted. unclear if due to vomitting or also in part due to diuretics (she is on both lasix and bumex as outside; both are held in hospital). 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 paradoxic septum. right ventricle is mildly dilated. RV systolic function is mild reduced. right atrium is severely dilated. severe tricupsid regurgitation. moderate to severe pulmonary hypertension. moderate pulmonic valvular regurgitation 2) Abdominal pain Partial SBO * General surgery (Dr. Zimmerman) on board-->help appreciated * Obstructive Series: enlarged cardiomedstinal silhouette. Left hilar prominence. mild pulmonary venous congestion. dilated air filled bowel loops. small bowel obstruction is not excluded. IVC filter. * CT Abdomen/Pelvis: developing ileus or distal parial or intermittent small bowel obstuction. trace free intraperitonal gas identifed. intraperitoneal exta luminal gas is loculated within thin strands may represent mucoid material. clinically corelated for potential bowel perforation * I have spoke with surgery following this report who came and re-evaluate the patient. noted patient is having normal bowel movements. no surgery intervention. recommended to advance diet. I have placed patient back on liquid diet. Though patient was extremely upset i removed her liquids at lunch time at the time of the report, i did stress to her that we are trying to make sure she does not need emergent surgery which she was quite upset reporting she was very hungry and wants real food. * Will consult GI * Protonix 40 mg IV Q12 * Lipase: 95 * Zofran 4mg IV Q4H PRN nausea/vomitting * Zosysn 3.375 IVPB Q6H * Placed on liquid diet after re-evaluated by surgery 3. History of Sacral ulcer Assessment/Plan * Wound care nursing referral * Turn & reposition Q2H * Patient is bed bound and immobile 4. Chronic Lymphedema Assessment/Plan * held diuretics given blood pressure and electrolyte imbalances * wound care referral 5. History of Breast Ca s.p parital right mastectomy; History of endometrial cancer s/p LANDY 6. Prophylaxis * GI ppx: protonix 40 mg Q12 * IVC filter * PT/OT eval * Wound care in regards to legs and sacral decub * Placed on liquid diet * Palliative care for goals of care
--- NOTE | 2018-03-28 16:37 | CP.PCM.PN ---
Subjective - Date & Time of Evaluation Date of Evaluation: 03/28/18 Time of Evaluation: 07:35 - Subjective Subjective: Pt S&E. NAEO. Having bowel movements. Denies N/V, F/C. States pain has resolved Objective - Vital Signs/Intake and Output Vital Signs (last 24 hours): Temp Pulse Resp BP Pulse Ox 97.6 F 90 20 94/61 L 98 03/28/18 15:07 03/28/18 15:07 03/28/18 15:07 03/28/18 15:07 03/28/18 15:07 Intake and Output: 03/28/18 03/28/18 06:59 18:59 Intake Total 150 Output Total 200 Balance -50 - Medications Medications: Current Medications Bumetanide (Bumex) 1 mg PO DAILY [facility] Last Admin: 03/28/18 10:21 Dose: Not Given Furosemide (Lasix) 40 mg PO DAILY [facility] Last Admin: 03/28/18 10:01 Dose: Not Given Gabapentin (Neurontin) 300 mg PO BID [facility] Last Admin: 03/28/18 10:21 Dose: Not Given Piperacillin Sod/Tazobactam (Sod 3.375 gm/ Sodium Chloride) 100 mls @ 200 mls /hr IVPB Q6H [facility]; Protocol Last Admin: 03/28/18 14:33 Dose: 200 mls/hr Lactobacillus Acidophilus (Bacid Acidophilus) 1 cap PO BID [facility] Last Admin: 03/28/18 10:21 Dose: Not Given Loperamide HCl (Imodium) 1 mg PO Q6H PRN PRN Reason: Diarrhea Metoprolol Tartrate (Lopressor) 50 mg PO BID [facility] Last Admin: 03/28/18 10:01 Dose: Not Given Ondansetron HCl (Zofran Inj) 4 mg IVP Q4 PRN PRN Reason: Nausea/Vomiting Last Admin: 03/28/18 05:46 Dose: 4 mg Oxycodone/Acetaminophen (Percocet 5/325 Mg Tab) 2 tab PO Q4H PRN PRN Reason: Pain, moderate (4-7) Stop: 03/31/18 03:51 Pantoprazole Sodium (Protonix Inj) 40 mg IVP Q12H [facility] Last Admin: 03/28/18 04:14 Dose: 40 mg - Labs Labs: 03/28/18 07:44 03/28/18 07:44 PT 15.9 SECONDS (9.7-12.2) H 03/28/18 15:27 INR 1.5 03/28/18 15:27 APTT 38 SECONDS (21-34) H 03/27/18 17:28 - Constitutional Appears: Non-toxic, No Acute Distress - Respiratory Exam Respiratory Exam: absent: Respiratory Distress - Cardiovascular Exam Cardiovascular Exam: REGULAR RHYTHM - GI/Abdominal Exam GI & Abdominal Exam: Soft. absent: Distended, Tenderness Assessment and Plan - Assessment and Plan (Free Text) Assessment: 77F with pSBO; resolving Plan: Adv diet as tolerated no plan for surgical intervention d/w Dr Erasmo Mirza, PGY4
--- NOTE | 2018-03-28 16:48 | CARD ---
APPROVED REPORT Date of service: 03/28/2018 EXAM: Two-dimensional and M-mode echocardiogram with Doppler and color Doppler. Other Information Quality : GoodRhythm : INDICATION Atrial Fibrillation RVR 2D DIMENSIONS IVSd1.0 (0.7-1.1cm)LVDd3.8 (3.9-5.9cm) PWd1.1 (0.7-1.1cm)LA [id number] (18-58mL) LVDs2.3 (2.5-4.0cm)FS (%) 38.3 % LVEF (%)69.3 (>50%) M-Mode DIMENSIONS Left Atrium (MM)4.72 (2.5-4.0cm)IVSd0.98 (0.7-1.1cm) Aortic Root3.11 (2.2-3.7cm)LVDd4.21 (4.0-5.6cm) Aortic Cusp Exc.2.32 (1.5-2.0cm)PWd1.00 (0.7-1.1cm) FS (%) 30 %LVDs2.95 (2.0-3.8cm) LVEF (%)58 (>50%) Mitral Valve MV E Nngdnvwj88.8cm/sE/A ratio0.0 TDI Lateral E' Peak V12.87cm/sMedial E' Peak V11.00cm/sE/Lateral E'7.2 E/Medial E'8.4 Tricuspid Valve TR Peak [id number]/sTR Peak Gr.[id number] LEFT VENTRICLE The left ventricle is normal size. There is mild concentric left ventricular hypertrophy. The left ventricular ejection fraction is within the normal range. Paradoxic septum RIGHT VENTRICLE The right ventricle is mildly dilated. There is normal right ventricular wall thickness. RV Systolic function is mildly reduced. ATRIA The left atrium is mildly dilated. The right atrium is severely dilated. AORTIC VALVE The aortic valve is moderately thickened. No aortic regurgitation is present. There is no aortic valvular stenosis. MITRAL VALVE The mitral valve is mildly thickened. There is no mitral valve stenosis. There is no mitral valve regurgitation noted. TRICUSPID VALVE There is severe tricuspid regurgitation. There is moderate to severe pulmonary hypertension. PULMONIC VALVE There is moderate pulmonic valvular regurgitation. GREAT VESSELS The aortic root is normal in size. The IVC is dilated. <Conclusion> The left ventricle is normal size. There is mild concentric left ventricular hypertrophy. The left ventricular ejection fraction is within the normal range. Paradoxic septum The right ventricle is mildly dilated. RV Systolic function is mildly reduced. The right atrium is severely dilated. There is severe tricuspid regurgitation. There is moderate to severe pulmonary hypertension. There is moderate pulmonic valvular regurgitation.
[2018-03-28 19:04] LABS: MYCOPLASMA PNEUMONIAE IGM NEGATIVE (NEGATIVE)
--- NOTE | 2018-03-28 19:39 | CARD ---
APPROVED REPORT Date of service: 03/27/2018 EKG Measurement Heart [id number] <Conclusion> Atrial fibrillation with rapid ventricular response with premature ventricular or aberrantly conducted complexes Low voltage QRS Possible Anterolateral infarct, age undetermined Abnormal ECG
--- NOTE | 2018-03-28 19:42 | CARD ---
APPROVED REPORT Date of service: 03/27/2018 EKG Measurement Heart [id number] <Conclusion> Atrial fibrillation with rapid ventricular response Nonspecific ST and T wave abnormality Abnormal ECG
[2018-03-29] MEDS: Piperacillin/Tazobact 3.375 GM in Sodium Chloride 100 ML IVPB SCH ×4 (02:10→20:50)
[2018-03-29] MEDS ORDERED: Oxycodone/Acetaminophen 5/325 mg Tab PO PRN ×2 (10:08→10:50)
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
[2018-03-29] MEDS: Ammonium Lactate 12% Lotion (225 g) EXT SCH ×2 (10:34→20:49)
--- NOTE | 2018-03-29 10:42 | CP.PCM.PN ---
Subjective - Date & Time of Evaluation Date of Evaluation: 03/29/18 Time of Evaluation: 07:25 - Subjective Subjective: Surgery progress note for Dr. Zimmerman Patient examined at bedside. No acute overnight events. Patient reports she tolerated regular diet last night, and is eager to eat. Denies nausea, vomiting, abdominal pain; reports BM and flatus. Patient is refusing labs this morning. Objective - Vital Signs/Intake and Output Vital Signs (last 24 hours): Temp Pulse Resp BP Pulse Ox 97.8 F 85 20 102/58 L 95 03/28/18 23:10 03/29/18 04:05 03/28/18 23:10 03/28/18 23:10 03/28/18 23:10 Intake and Output: 03/29/18 03/29/18 06:59 18:59 Intake Total 350 Output Total 400 Balance -50 - Medications Medications: Current Medications Bumetanide (Bumex) 1 mg PO DAILY [facility] Last Admin: 03/28/18 10:21 Dose: Not Given Furosemide (Lasix) 40 mg PO DAILY [facility] Last Admin: 03/28/18 10:01 Dose: Not Given Gabapentin (Neurontin) 300 mg PO BID [facility] Last Admin: 03/28/18 18:00 Dose: Not Given Heparin Sodium (Porcine) (Heparin) 5,000 units SC Q8 [facility] Stop: 04/04/18 14:01 Piperacillin Sod/Tazobactam (Sod 3.375 gm/ Sodium Chloride) 100 mls @ 200 mls/hr IVPB Q6H [facility]; Protocol Last Admin: 03/29/18 02:10 Dose: 200 mls/hr Lactic Acid (Lac-Hydrin 12% Lotion (225 G)) 0 gm EXT BID [facility] Lactobacillus Acidophilus (Bacid Acidophilus) 1 cap PO BID [facility] Last Admin: 03/28/18 20:25 Dose: Not Given Metoprolol Tartrate (Lopressor) 50 mg PO BID [facility] Last Admin: 03/28/18 18:00 Dose: Not Given Ondansetron HCl (Zofran Inj) 4 mg IVP Q4 PRN PRN Reason: Nausea/Vomiting Last Admin: 03/28/18 05:46 Dose: 4 mg Oxycodone/Acetaminophen (Percocet 5/325 Mg Tab) 2 tab PO Q4H PRN PRN Reason: Pain, moderate (4-7) Stop: 03/31/18 03:51 Pantoprazole Sodium (Protonix Inj) 40 mg IVP Q12H [facility] Last Admin: 03/29/18 03:12 Dose: 40 mg - Labs Labs: 03/28/18 07:44 03/28/18 07:44 PT 15.9 SECONDS (9.7-12.2) H 03/28/18 15:27 INR 1.5 03/28/18 15:27 APTT 38 SECONDS (21-34) H 03/27/18 17:28 - Constitutional Appears: Non-toxic, No Acute Distress - Head Exam Head Exam: ATRAUMATIC, NORMAL INSPECTION, NORMOCEPHALIC - Eye Exam Eye Exam: EOMI, Normal appearance - ENT Exam ENT Exam: Mucous Membranes Moist, Normal Exam - Neck Exam Neck Exam: Normal Inspection - Respiratory Exam Respiratory Exam: Clear to Ausculation Bilateral, NORMAL BREATHING PATTERN - Cardiovascular Exam Cardiovascular Exam: REGULAR RHYTHM, Murmur - GI/Abdominal Exam GI & Abdominal Exam: Soft, Normal Bowel Sounds. absent: Distended, Tenderness - Extremities Exam Extremities Exam: Pedal Edema (b/l). absent: Calf Tenderness - Neurological Exam Neurological Exam: Alert, Awake - Psychiatric Exam Psychiatric exam: Normal Affect, Normal Mood - Skin Skin Exam: Dry, Intact, Normal Color, Warm Assessment and Plan - Assessment and Plan (Free Text) Assessment: 77 year old female, evaluated for partial SBO Plan: - possible SBO resolving - +BM/flatus, -nausea/vomiting/abdominal pain - abdominal pain likely 2/2 to gastritis, being treated with PPI - tolerating regular diet - medical management per primary - no surgical intervention indicated at this time Will discuss with Dr. Erasmo Logan, PGY-1
[2018-03-29] MEDS: Lactobacillus Acidophilus 500 MU Cap PO SCH ×2 (10:51→18:16)
--- NOTE | 2018-03-29 12:45 | CP.PCM.CON ---
<Matthew Mendes - Last Filed: 03/29/18 12:47> History of Present Illness - History of Present Illness History of Present Illness: Matthew Mendes, PGY-[address] Bryant Patient has been eating well. Denies chest pain, palpitations, shortness of breath. Past Patient History - Infectious Disease Hx of Infectious Diseases: None - Tetanus Immunizations Tetanus Immunization: Unknown - Past Medical History & Family History Past Medical History?: Yes - Past Social History Smoking Status: Never Smoked - CARDIAC Hx Cardia Arrhythmia: Yes Hx Congestive Heart Failure: Yes Hx Hypertension: Yes Hx Peripheral Edema: Yes (+3 ble edema) - PULMONARY Hx Asthma: Yes Hx Bronchitis: Yes - NEUROLOGICAL Hx Neurological Disorder: Yes (right hand/arm tremors) - HEENT Hx HEENT Problems: (wears glasses) - RENAL Hx Chronic Kidney Disease: No - ENDOCRINE/METABOLIC Hx Endocrine Disorders: No - HEMATOLOGICAL/ONCOLOGICAL Hx Anemia: Yes Hx Cancer: Yes (Uterine cancer) Hx Cirrhosis: No Hx Hepatitis A: No Hx Hepatitis B: No Hx Hepatitis C: No - INTEGUMENTARY Hx Dermatological Problems: Yes (HEEL PRESSURE ULCER ,L DTI AND STAGE 1 LEFT LATERAL SIDE,MASD SKIN FOLDS,) Other/Comment: INCONTINENCE ASSOCIATED SKIN DERMATITIS MULTIPLE BILATERAL BUTTOCKS , left lower abd pinhole wound that drains ysterectomy surgical juan pablo +mrsa 06/11/15, ble +3 edema ble edema redness dry flakey skin with weeping no open wounds, skin is discolored, both feet dry flakey skin, multiple scars from boils that healed to lower donald, buttocks redness excoriated, pt refusing to turn for assesment - MUSCULOSKELETAL/RHEUMATOLOGICAL Hx Arthritis: Yes (knees) - GASTROINTESTINAL Hx Gastrointestinal Disorders: No - GENITOURINARY/GYNECOLOGICAL Hx Genitourinary Disorders: Yes Hx Incontinence: Yes Other/Comment: vaginal bleeding on and off x 14 yrs has stopped after hyst in 2014 - PSYCHIATRIC Hx Depression: No Hx Substance Use: No - SURGICAL HISTORY Hx Appendectomy: Yes Hx Hysterectomy: Yes (for uterine cancer) - ANESTHESIA Hx Anesthesia: Yes Hx Anesthesia Reactions: No Meds Allergies/Adverse Reactions: Allergies Allergy/AdvReac Type Severity Reaction Status Date / Time erythromycin base Allergy ANAPHYLAXIS Verified 03/27/18 16:58 - Medications Medications: Current Medications Bumetanide (Bumex) 1 mg PO DAILY [facility] Last Admin: 03/28/18 10:21 Dose: Not Given Furosemide (Lasix) 40 mg PO DAILY [facility] Last Admin: 03/28/18 10:01 Dose: Not Given Gabapentin (Neurontin) 300 mg PO BID [facility] Last Admin: 03/29/18 10:51 Dose: Not Given Heparin Sodium (Porcine) (Heparin) 5,000 units SC Q8 [facility] Stop: 04/04/18 14:01 Piperacillin Sod/Tazobactam (Sod 3.375 gm/ Sodium Chloride) 100 mls @ 200 mls/hr IVPB Q6H [facility]; Protocol Last Admin: 03/29/18 10:52 Dose: 200 mls/hr Lactic Acid (Lac-Hydrin 12% Lotion (225 G)) 0 gm EXT BID [facility] Last Admin: 03/29/18 10:34 Dose: 1 g Lactobacillus Acidophilus (Bacid Acidophilus) 1 cap PO BID [facility] Last Admin: 03/29/18 10:51 Dose: Not Given Metoprolol Tartrate (Lopressor) 50 mg PO BID [facility] Last Admin: 03/29/18 10:51 Dose: Not Given Ondansetron HCl (Zofran Inj) 4 mg IVP Q4 PRN PRN Reason: Nausea/Vomiting Last Admin: 03/28/18 05:46 Dose: 4 mg Oxycodone/Acetaminophen (Percocet 5/325 Mg Tab) 1 tab PO Q4H PRN PRN Reason: Pain, moderate (4-7) Stop: 04/04/18 10:51 Pantoprazole Sodium (Protonix Inj) 40 mg IVP Q12H [facility] Last Admin: 03/29/18 03:12 Dose: 40 mg Physical Exam - Constitutional Appears: Well - Additional Findings Additional findings: - Constitutional Appears: Well, Non-toxic, No Acute Distress - Head Exam Head Exam: ATRAUMATIC, NORMOCEPHALIC - Eye Exam Eye Exam: EOMI, Normal appearance - ENT Exam ENT Exam: Mucous Membranes Moist - Respiratory Exam Respiratory Exam: Decreased Breath Sounds, Rales (RLL), NORMAL BREATHING PATTERN. absent: Chest Wall Tenderness, Clear to Auscultation Bilateral (RLL) - Cardiovascular Exam Cardiovascular Exam: Irregular Rhythm, +S1, +S2 - GI/Abdominal Exam GI & Abdominal Exam: Soft. absent: Distended - Extremities Exam Extremities exam: Positive for: pedal edema (4+ edema with severe b/l LE edema with venous stasis changes). Negative for: normal inspection - Back Exam Back exam: absent: CVA tenderness (L), CVA tenderness (R) - Neurological Exam Neurological exam: Abnormal Gait (bedbound), Alert, Oriented x3 Results - Vital Signs Recent Vital Signs: Last Vital Signs Temp 97.8 F 03/28/18 23:10 Pulse 91 H 03/29/18 10:00 Resp 20 03/28/18 23:10 BP 102/58 L 03/28/18 23:10 Pulse Ox 95 03/28/18 23:10 - Labs Result Diagrams: 03/28/18 07:44 03/28/18 07:44 Labs: Laboratory Results - last 24 hr 03/28/18 03/28/18 03/28/18 11:24 13:49 15:27 PT 15.9 H INR 1.5 POC Glucose (mg/dL) 87 Mycoplasma pneumon IgM Negative 03/28/18 03/28/18 16:34 21:00 PT INR POC Glucose (mg/dL) 74 103 Mycoplasma pneumon IgM Assessment & Plan - Assessment and Plan (Free Text) Assessment: Assessment: Ms. Giron is a 77 year old bed-bound female w/ PMHx of multiple myocardial infa rctions, A. fib. w/ IVC filter in place, LE lymphedema, sacral ulcer, breast cancer w/ lumpectomy, who is being evaluated for severe venous stasis and deconditioning in setting of A f ib with IVC filter. Plan: Afib w/ RVR, medication noncompliance - sustained A fib today asymptomatic - C/w home medications: metoprolol tartrate 50 mg BID, Lasix 40 mg daily, Bumex 1mg daily - Echo reports EF 59%, mild LVH, RV systolic function mildly reduced, RA severely dilated, severe TR with severe pulm HTN - F/U results of CT venogram and D-dimer - Discussion with patient's daughter and family regarding care Case reviewed and plan discussed with Dr. Bryant. Future recommendations per Dr. Bryant. Matthew Mendes, PGY-1 <Festus Bryant - Last Filed: 03/29/18 18:48> Meds - Medications Medications: Current Medications Bumetanide (Bumex) 1 mg PO DAILY [facility] Last Admin: 03/28/18 10:21 Dose: Not Given Furosemide (Lasix) 40 mg PO DAILY [facility] Last Admin: 03/28/18 10:01 Dose: Not Given Gabapentin (Neurontin) 300 mg PO BID [facility] Last Admin: 03/29/18 18:18 Dose: Not Given Heparin Sodium (Porcine) (Heparin) 5,000 units SC Q8 [facility] Stop: 04/04/18 14:01 Last Admin: 03/29/18 14:31 Dose: Not Given Piperacillin Sod/Tazobactam (Sod 3.375 gm/ Sodium Chloride) 100 mls @ 200 mls/hr IVPB Q6H [facility]; Protocol Last Admin: 03/29/18 14:26 Dose: 200 mls/hr Lactic Acid (Lac-Hydrin 12% Lotion (225 G)) 0 gm EXT BID [facility] Last Admin: 03/29/18 10:34 Dose: 1 g Lactobacillus Acidophilus (Bacid Acidophilus) 1 cap PO BID [facility] Last Admin: 03/29/18 18:16 Dose: Not Given Metoprolol Tartrate (Lopressor) 50 mg PO BID [facility] Last Admin: 03/29/18 18:16 Dose: Not Given Ondansetron HCl (Zofran Inj) 4 mg IVP Q4 PRN PRN Reason: Nausea/Vomiting Last Admin: 03/28/18 05:46 Dose: 4 mg Oxycodone/Acetaminophen (Percocet 5/325 Mg Tab) 1 tab PO Q4H PRN PRN Reason: Pain, moderate (4-7) Stop: 04/04/18 10:51 Pantoprazole Sodium (Protonix Inj) 40 mg IVP Q12H [facility] Last Admin: 03/29/18 18:08 Dose: 40 mg Results - Vital Signs Recent Vital Signs: Last Vital Signs Temp 98.2 F 03/29/18 15:59 Pulse 85 03/29/18 15:59 Resp 20 03/29/18 15:59 BP 93/60 L 03/29/18 15:59 Pulse Ox 98 03/29/18 15:59 - Labs Result Diagrams: 03/28/18 07:44 03/28/18 07:44 Labs: Laboratory Results - last 24 hr 03/28/18 03/28/18 03/29/18 13:49 21:00 16:06 POC Glucose (mg/dL) 103 101 Mycoplasma pneumon IgM Negative Attending/Attestation - Attestation I have personally seen and examined this patient.: Yes I have fully participated in the care of the patient.: Yes I have reviewed all pertinent clinical information: Yes Notes (Text): 03/29/18 18:48 spoke to daughter Eli about swelling of legs and non-compliance issues plan for CT venogram d-dimers
--- NOTE | 2018-03-29 14:36 | CP.PCM.PN ---
<Saira Taylor - Last Filed: 03/29/18 16:29> Subjective - Date & Time of Evaluation Date of Evaluation: 03/29/18 Time of Evaluation: 14:36 - Subjective Subjective: Medicine Dr. Paredes's Service Patient denies abdominal pain, chest pain, shortness of breath and palpitations. Denies vomiting since long term. Patient is unhappy with her food in the hospital. Both she and nursing endorse BM this morning. Objective - Vital Signs/Intake and Output Vital Signs (last 24 hours): Temp Pulse Resp BP Pulse Ox 97.8 F 91 H 20 102/58 L 95 03/28/18 23:10 03/29/18 10:00 03/28/18 23:10 03/28/18 23:10 03/28/18 23:10 Intake and Output: 03/29/18 03/29/18 06:59 18:59 Intake Total 350 Output Total 400 Balance -50 - Medications Medications: Current Medications Bumetanide (Bumex) 1 mg PO DAILY [facility] Last Admin: 03/28/18 10:21 Dose: Not Given Furosemide (Lasix) 40 mg PO DAILY [facility] Last Admin: 03/28/18 10:01 Dose: Not Given Gabapentin (Neurontin) 300 mg PO BID [facility] Last Admin: 03/29/18 10:51 Dose: Not Given Heparin Sodium (Porcine) (Heparin) 5,000 units SC Q8 [facility] Stop: 04/04/18 14:01 Last Admin: 03/29/18 14:24 Dose: 5,000 units Piperacillin Sod/Tazobactam (Sod 3.375 gm/ Sodium Chloride) 100 mls @ 200 mls/hr IVPB Q6H [facility]; Protocol Last Admin: 03/29/18 14:26 Dose: 200 mls/hr Lactic Acid (Lac-Hydrin 12% Lotion (225 G)) 0 gm EXT BID [facility] Last Admin: 03/29/18 10:34 Dose: 1 g Lactobacillus Acidophilus (Bacid Acidophilus) 1 cap PO BID [facility] Last Admin: 03/29/18 10:51 Dose: Not Given Metoprolol Tartrate (Lopressor) 50 mg PO BID [facility] Last Admin: 03/29/18 10:51 Dose: Not Given Ondansetron HCl (Zofran Inj) 4 mg IVP Q4 PRN PRN Reason: Nausea/Vomiting Last Admin: 10/24/18 05:46 Dose: 4 mg Oxycodone/Acetaminophen (Percocet 5/325 Mg Tab) 1 tab PO Q4H PRN PRN Reason: Pain, moderate (4-7) Stop: 04/04/18 10:51 Pantoprazole Sodium (Protonix Inj) 40 mg IVP Q12H [facility] Last Admin: 03/29/18 03:12 Dose: 40 mg - Labs Labs: 03/28/18 07:44 03/28/18 07:44 PT 15.9 SECONDS (9.7-12.2) H 03/28/18 15:27 INR 1.5 03/28/18 15:27 APTT 38 SECONDS (21-34) H 03/27/18 17:28 - Head Exam Head Exam: ATRAUMATIC, NORMAL INSPECTION - Eye Exam Eye Exam: Normal appearance - Neck Exam Neck Exam: Normal Inspection - Respiratory Exam Respiratory Exam: Clear to Ausculation Bilateral, NORMAL BREATHING PATTERN - Cardiovascular Exam Cardiovascular Exam: Irregular Rhythm Additional comments: tachycardia - GI/Abdominal Exam GI & Abdominal Exam: Soft, Normal Bowel Sounds - Exam Additional comments: refused viewing of urinary catheter source. Urinary catheter drained foamy urine. - Neurological Exam Neurological Exam: Alert, Awake, Oriented x3 - Skin Additional comments: Refused examination of sacral ulcer. Xerosis cutis right lateral hip area severe xerosis cutis bilateral lymphedema tibias with skin discoloration Assessment and Plan - Assessment and Plan (Free Text) Assessment: 68 y/o female with Afif with RVR on IVC, PNA, lymphedema, and sacral ulcer admitted for black vomiting x 2 in her long term on 03/27. Currently stable on med [employer]. 1) Afib with RVR -currently on tele IRR, HR 70s, can be 130s during meals -continue to monitor on tele -metoprolol tartrate 50 mg BID 2) abdominal pain - resolved, partial SBO vs. gastritis -CT abd/pelvis concerning for possible bowel perforation per radiology. However surgery reconsulted and does not recommend surgery at this time. Patient endorsed BM this morning so can be resolving SBO. Patient has not vomited ever since the incident in the long term. -Avoid NSAIDS for possible gastritis -zosyn 3.375 IV q6h started 03/28 today is day 2 (03/29) -Follow surgery recs - patient SBO r/o and clear to resume diet -resumed heparin 5000mg sq q8h 3) bilateral lymphedema -caution with lasix and bumex due to hypokalemia, being held -consider elevation of legs -lac hydrin cream BID per wound care recs -wound care consult ordered for lymphedema skin care 5) sacral ulcer -wound care consult - per nursing home administrator sacral ulcer is 3 cm deep and stage 4. -pressure care - turn patient, modify bed if possible -wound cx ulcer -percocet 5/325 1 tablet prior to wound cleaning PRN for pain 6) Hypomagenesemia and hypokalemia -repleted 03/28 (yestreday) but patient refused labs this morning -continue to monitor case discussed with Dr. Lena Taylor, PGY-1 <Kimberly Paredes V - Last Filed: 03/29/18 18:44> Objective - Vital Signs/Intake and Output Vital Signs (last 24 hours): Temp Pulse Resp BP Pulse Ox 98.2 F 85 20 93/60 L 98 03/29/18 15:59 03/29/18 15:59 03/29/18 15:59 03/29/18 15:59 03/29/18 15:59 Intake and Output: 03/29/18 03/29/18 06:59 18:59 Intake Total 350 Output Total 400 Balance -50 - Medications Medications: Current Medications Bumetanide (Bumex) 1 mg PO DAILY [facility] Last Admin: 03/28/18 10:21 Dose: Not Given Furosemide (Lasix) 40 mg PO DAILY [facility] Last Admin: 03/28/18 10:01 Dose: Not Given Gabapentin (Neurontin) 300 mg PO BID [facility] Last Admin: 03/29/18 18:18 Dose: Not Given Heparin Sodium (Porcine) (Heparin) 5,000 units SC Q8 [facility] Stop: 04/04/18 14:01 Last Admin: 03/29/18 14:31 Dose: Not Given Piperacillin Sod/Tazobactam (Sod 3.375 gm/ Sodium Chloride) 100 mls @ 200 mls/hr IVPB Q6H [facility]; Protocol Last Admin: 03/29/18 14:26 Dose: 200 mls/hr Lactic Acid (Lac-Hydrin 12% Lotion (225 G)) 0 gm EXT BID [facility] Last Admin: 03/29/18 10:34 Dose: 1 g Lactobacillus Acidophilus (Bacid Acidophilus) 1 cap PO BID [facility] Last Admin: 03/29/18 18:16 Dose: Not Given Metoprolol Tartrate (Lopressor) 50 mg PO BID [facility] Last Admin: 03/29/18 18:16 Dose: Not Given Ondansetron HCl (Zofran Inj) 4 mg IVP Q4 PRN PRN Reason: Nausea/Vomiting Last Admin: 03/28/18 05:46 Dose: 4 mg Oxycodone/Acetaminophen (Percocet 5/325 Mg Tab) 1 tab PO Q4H PRN PRN Reason: Pain, moderate (4-7) Stop: 04/04/18 10:51 Pantoprazole Sodium (Protonix Inj) 40 mg IVP Q12H [facility] Last Admin: 03/29/18 18:08 Dose: 40 mg - Labs Labs: 03/28/18 07:44 03/28/18 07:44 PT 15.9 SECONDS (9.7-12.2) H 03/28/18 15:27 INR 1.5 03/28/18 15:27 APTT 38 SECONDS (21-34) H 03/27/18 17:28 Attending/Attestation - Attestation I have personally seen and examined this patient.: Yes I have fully participated in the care of the patient.: Yes I have reviewed all pertinent clinical information, including history, physical exam and plan: Yes Notes (Text): Patient seen, examined and case discussed with day-time resident. Patient reports she is doing better. She denies further episodes of vomitting, denies abdominal pain and reports she is having bowel movements since coming to the hospital yesterday. Patient is aware the wound care nurse will come see her in regards to her legs and to her sacral ulcer. Patient has refused multiple times today her blood work and continues to refuse her medications as well. Discussed with GI, no intervention. Per surgery, no surgery, continue to advance diet. Patient's diuretic on hold given borderline low pressure and we will need to check electrolytes since they were low yesterday. Assessment/Plan 1) Afib w/ RVR * Digoxin 0.5 mg given in ED, resolved * Cardiology (Dr. Bryant) autotransfusionist-->help appreciated * Noted noncompliance with meds * patient's fund director does not come to [place] * Metoprolol tartrate 50 mg BID * held Lasix 40 mg daily and Bumex 1mg daily given electrolytes imbalances * Echocardiogram (03/28/18): left ventricle is normal size, mild concentric left ventricular hypertrophy, left ventricular ejection fraction is within the normal range. paradoxic septum. right ventricle is mildly dilated. RV systolic function is mild reduced. right atrium is severely dilated. severe tricupsid regurgitation. moderate to severe pulmonary hypertension. moderate pulmonic valvular regurgitation 2) Abdominal pain Partial SBO * General surgery (Dr. Zimmerman) on board-->help appreciated * Obstructive Series: enlarged cardiomedstinal silhouette. Left hilar prominence. mild pulmonary venous congestion. dilated air filled bowel loops. small bowel obstruction is not excluded. IVC filter. * CT Abdomen/Pelvis: developing ileus or distal parial or intermittent small bowel obstuction. trace free intraperitonal gas identifed. intraperitoneal exta luminal gas is loculated within thin strands may represent mucoid material. clinically corelated for potential bowel perforation * I have spoke with surgery following this report who came and re-evaluate the patient. noted patient is having normal bowel movements. no surgery intervention. recommended to advance diet. I have placed patient back on liquid diet. Though patient was extremely upset i removed her liquids at lunch time at the time of the report, i did stress to her that we are trying to make sure she does not need emergent surgery which she was quite upset reporting she was very hungry and wants real food. * GI (Dr. Bah) on board-->help appreciated * Protonix 40 mg IV Q12 * Lipase: 95 * Zofran 4mg IV Q4H PRN nausea/vomitting * Zosysn 3.375 IVPB Q6H * Diet advanced to heart healthy 3. History of Sacral ulcer Assessment/Plan * Wound care nursing referral * Turn & reposition Q2H * Patient is bed bound and immobile 4. Chronic Lymphedema Assessment/Plan * held diuretics given blood pressure and electrolyte imbalances * wound care referral * cardiology has order for CT venogram 5. History of Breast Ca s.p parital right mastectomy; History of endometrial cancer s/p [facility] 6. Prophylaxis * GI ppx: protonix 40 mg Q12 * IVC filter * PT/OT eval * Wound care in regards to legs and sacral decub * heart healthy diet * Palliative care for goals of care Disposition: patient refusing blood work, refusing medications. diet advanced today.
[2018-03-29] MEDS ORDERED: Iodixanol 320 mg/ml 150 ml Bottle IV ONE (14:40)
[2018-03-29 19:53] LABS: BASO # 0.1 K/uL (0.0-0.2); BASO % 1.3 % (0.0-2.0); EOS # 0.2 K/uL (0.0-0.7); EOS % 2.5 % (0.0-4.0); HEMOGLOBIN 13.1 g/dL (11.0-16.0); LYMPH # 0.9 K/uL (1.0-4.3); LYMPH % 13.8 % (20.0-40.0); MEAN CELL VOLUME 89.3 fL (81.0-99.0); MEAN CORPUSCULAR HEMOGLOBIN 29.3 pg (27.0-31.0); MEAN CORPUSCULAR HGB CONC 32.9 g/dL (33.0-37.0); MEAN PLATELET VOLUME 7.4 fL (7.2-11.7); MONO # 0.5 K/uL (0.0-0.8); MONO % 7.1 % (0.0-10.0); NEUT # 5.1 K/uL (1.8-7.0); NEUT % 75.3 % (50.0-75.0); NRBC % 0.1 % (0.0-2.0); RBC 4.45 Mil/uL (3.80-5.20); RED CELL DISTRIBUTION WIDTH 16.9 % (11.5-14.5); WHITE BLOOD COUNT 6.7 K/uL (4.8-10.8)
[2018-03-29 20:16] LABS: BLOOD UREA NITROGEN 8 mg/dL (7-17); CALCIUM 7.2 mg/dl (8.6-10.4); GFR NON-AFRICAN AMERICAN > 60
--- NOTE | 2018-03-29 23:26 | CP.PCM.PCO ---
Addendum entered and electronically signed by Daniel Boland 03/30/18 05:25: House doctor note; Replenished mag sulfate 1 g X2 & KCl 20 meq X 2. Original Note:
[2018-03-30] MEDS: Magnesium Sulfate 1 gm in D5W 1 GM/100 ML BAG IVPB SCH ×7 (00:20→20:32)
[2018-03-30] MEDS: Piperacillin/Tazobact 3.375 GM in Sodium Chloride 100 ML IVPB SCH ×4 (03:01→19:32)
--- NOTE | 2018-03-30 07:10 | CP.PCM.PN ---
<Matthew Mendes - Last Filed: 03/30/18 10:05> Subjective - Date & Time of Evaluation Date of Evaluation: 03/30/18 Time of Evaluation: 06:18 - Subjective Subjective: Matthew Mendes, PGy-[address] Bryant Patient seen and evaluated at bedside. Reports no new symptoms of chest pain, palpitations, shortness of breath. No acute events overnight per nursing. Patient refused CT venogram yesterday. Objective - Vital Signs/Intake and Output Vital Signs (last 24 hours): Temp Pulse Resp BP Pulse Ox 98.2 F 78 20 93/60 L 98 03/29/18 15:59 03/30/18 01:00 03/29/18 15:59 03/29/18 15:59 03/29/18 15:59 Intake and Output: 03/30/18 03/30/18 06:59 18:59 Intake Total 850 Output Total 600 Balance 250 - Medications Medications: Current Medications Bumetanide (Bumex) 1 mg PO DAILY [facility] Last Admin: 03/28/18 10:21 Dose: Not Given Furosemide (Lasix) 40 mg PO DAILY [facility] Last Admin: 03/28/18 10:01 Dose: Not Given Gabapentin (Neurontin) 300 mg PO BID [facility] Last Admin: 03/29/18 18:18 Dose: Not Given Heparin Sodium (Porcine) (Heparin) 5,000 units SC Q8 [facility] Stop: 04/04/18 14:01 Last Admin: 03/30/18 05:06 Dose: Not Given Piperacillin Sod/Tazobactam (Sod 3.375 gm/ Sodium Chloride) 100 mls @ 200 mls/hr IVPB Q6H [facility]; Protocol Last Admin: 03/30/18 03:01 Dose: 200 mls/hr Lactic Acid (Lac-Hydrin 12% Lotion (225 G)) 0 gm EXT BID [facility] Last Admin: 03/29/18 20:49 Dose: 225 g Lactobacillus Acidophilus (Bacid Acidophilus) 1 cap PO BID [facility] Last Admin: 03/29/18 18:16 Dose: Not Given Metoprolol Tartrate (Lopressor) 50 mg PO BID [facility] Last Admin: 03/29/18 18:16 Dose: Not Given Ondansetron HCl (Zofran Inj) 4 mg IVP Q4 PRN PRN Reason: Nausea/Vomiting Last Admin: 03/28/18 05:46 Dose: 4 mg Oxycodone/Acetaminophen (Percocet 5/325 Mg Tab) 1 tab PO Q4H PRN PRN Reason: Pain, moderate (4-7) Stop: 04/04/18 10:51 Pantoprazole Sodium (Protonix Inj) 40 mg IVP Q12H [facility] Last Admin: 03/30/18 03:57 Dose: 40 mg - Labs Labs: 03/29/18 19:30 03/29/18 19:30 PT 15.9 SECONDS (9.7-12.2) H 03/28/18 15:27 INR 1.5 03/28/18 15:27 APTT 38 SECONDS (21-34) H 03/27/18 17:28 - Additional Findings Additional findings: - Constitutional Appears: Well - Additional Findings Additional findings: - Constitutional Appears: Well, Non-toxic, No Acute Distress - Head Exam Head Exam: ATRAUMATIC, NORMOCEPHALIC - Eye Exam Eye Exam: EOMI, Normal appearance - ENT Exam ENT Exam: Mucous Membranes Moist - Respiratory Exam Respiratory Exam: Decreased Breath Sounds, Rales (RLL), NORMAL BREATHING PATTERN. absent: Chest Wall Tenderness, Clear to Auscultation Bilateral (RLL) - Cardiovascular Exam Cardiovascular Exam: Irregular Rhythm, +S1, +S2 - GI/Abdominal Exam GI & Abdominal Exam: Soft. absent: Distended - Extremities Exam Extremities exam: Positive for: pedal edema (4+ edema with severe b/l LE edema with venous stasis changes). Negative for: normal inspection - Back Exam Back exam: absent: CVA tenderness (L), CVA tenderness (R) - Neurological Exam Neurological exam: Abnormal Gait (bedbound), Alert, Oriented x3 Assessment and Plan - Assessment and Plan (Free Text) Assessment: Assessment: Ms. Giron is a 77 year old bed-bound female w/ PMHx of multiple myocardial infarctions, A. fib. w/ IVC filter in place, LE lymphedema, sacral ulcer, breast cancer w/ lumpectomy, who is being evaluated for severe venous stasis and deconditioning in setting of A fib with IVC filter. Plan: Afib w/ RVR, medication noncompliance - sustained A fib today, asymptomatic - C/w home medications: metoprolol tartrate 50 mg BID, Lasix 40 mg daily, Bumex 1mg daily - Echo reports EF 59%, mild LVH, RV systolic function mildly reduced, RA severely dilated, severe TR with severe pulm HTN - Patient refused CT venogram yesterday. Will speak more extensively with patient regarding benefits of venogram regarding her care and etiology of her deconditioning and severe venous stasis changes. Will try again today - F/U D-dimer - Ongoing Discussion with patient regarding noncompliance Case reviewed and plan discussed with Dr. Bryant. Future recommendations per Dr. Bryant. Matthew Mendes, PGY-1 <Festus Bryant - Last Filed: 03/30/18 20:07> Objective - Vital Signs/Intake and Output Vital Signs (last 24 hours): Temp Pulse Resp BP Pulse Ox 98.7 F 81 20 130/77 96 03/30/18 19:08 03/30/18 19:08 03/30/18 15:00 03/30/18 19:08 03/30/18 15:00 Intake and Output: 03/30/18 03/31/18 18:59 06:59 Intake Total 360 Balance 360 - Medications Medications: Current Medications Bumetanide (Bumex) 1 mg PO DAILY [facility] Last Admin: 03/28/18 10:21 Dose: Not Given Furosemide (Lasix) 40 mg PO DAILY [facility] Last Admin: 03/28/18 10:01 Dose: Not Given Gabapentin (Neurontin) 300 mg PO BID [facility] Last Admin: 03/30/18 17:22 Dose: Not Given Heparin Sodium (Porcine) (Heparin) 5,000 units SC Q8 [facility] Stop: 04/04/18 14:01 Last Admin: 03/30/18 15:41 Dose: Not Given Piperacillin Sod/Tazobactam (Sod 3.375 gm/ Sodium Chloride) 100 mls @ 200 mls/hr IVPB Q6H [facility]; Protocol Last Admin: 03/30/18 19:32 Dose: 200 mls/hr Lactic Acid (Lac-Hydrin 12% Lotion (225 G)) 0 gm EXT BID [facility] Last Admin: 03/30/18 17:21 Dose: Not Given Lactobacillus Acidophilus (Bacid Acidophilus) 1 cap PO BID [facility] Last Admin: 03/30/18 17:21 Dose: Not Given Metoprolol Tartrate (Lopressor) 50 mg PO BID [facility] Last Admin: 03/30/18 17:22 Dose: Not Given Ondansetron HCl (Zofran Inj) 4 mg IVP Q4 PRN PRN Reason: Nausea/Vomiting Last Admin: 03/28/18 05:46 Dose: 4 mg Oxycodone/Acetaminophen (Percocet 5/325 Mg Tab) 1 tab PO Q4H PRN PRN Reason: Pain, moderate (4-7) Stop: 04/04/18 10:51 Pantoprazole Sodium (Protonix Inj) 40 mg IVP Q12H [facility] Last Admin: 03/30/18 18:53 Dose: 40 mg Potassium Chloride (Potassium Chloride Oral Soln) 20 meq PO BID [facility] Last Admin: 03/30/18 17:22 Dose: Not Given - Labs Labs: 03/30/18 09:40 03/30/18 17:23 PT 15.9 SECONDS (9.7-12.2) H 03/28/18 15:27 INR 1.5 03/28/18 15:27 APTT 38 SECONDS (21-34) H 03/27/18 17:28 Attending/Attestation - Attestation I have personally seen and examined this patient.: Yes I have fully participated in the care of the patient.: Yes I have reviewed all pertinent clinical information, including history, physical exam and plan: Yes
[2018-03-30] MEDS ORDERED: Dextrose 50% SYRINGE Inj (50 ml) ONE (07:21)
[2018-03-30] MEDS ORDERED: Iodixanol 320 mg/ml 150 ml Bottle IV ONE (08:20)
[2018-03-30 08:31] LABS: LEGIONELLA AG URINE NEGATIVE (NEGATIVE)
[2018-03-30 09:44] LABS: BASO % 0.5 % (0.0-2.0); EOS # 0.3 K/uL (0.0-0.7); EOS % 3.1 % (0.0-4.0); HEMOGLOBIN 14.5 g/dL (11.0-16.0); LYMPH # 0.9 K/uL (1.0-4.3); LYMPH % 11.2 % (20.0-40.0); MEAN CELL VOLUME 89.7 fL (81.0-99.0); MEAN CORPUSCULAR HGB CONC 33.4 g/dL (33.0-37.0); MEAN PLATELET VOLUME 7.5 fL (7.2-11.7); MONO # 0.6 K/uL (0.0-0.8); MONO % 6.8 % (0.0-10.0); NEUT # 6.4 K/uL (1.8-7.0); NEUT % 78.4 % (50.0-75.0); RBC 4.84 Mil/uL (3.80-5.20); RED CELL DISTRIBUTION WIDTH 17.1 % (11.5-14.5); WHITE BLOOD COUNT 8.2 K/uL (4.8-10.8)
[2018-03-30] MEDS: Ammonium Lactate 12% Lotion (225 g) EXT SCH ×2 (10:08→17:21)
[2018-03-30] MEDS: Lactobacillus Acidophilus 500 MU Cap PO SCH ×2 (10:11→17:21)
--- NOTE | 2018-03-30 11:57 | CP.PCM.PN ---
Subjective - Date & Time of Evaluation Date of Evaluation: 03/30/18 Time of Evaluation: 11:55 - Subjective Subjective: No pain, N/V/C/D. Wants to eat. Objective - Vital Signs/Intake and Output Vital Signs (last 24 hours): Temp Pulse Resp BP Pulse Ox 98.2 F 93 H 20 93/60 L 98 03/29/18 15:59 03/30/18 08:32 03/29/18 15:59 03/29/18 15:59 03/29/18 15:59 Intake and Output: 03/30/18 03/30/18 06:59 18:59 Intake Total 850 Output Total 600 Balance 250 - Medications Medications: Current Medications Bumetanide (Bumex) 1 mg PO DAILY [facility] Last Admin: 03/28/18 10:21 Dose: Not Given Furosemide (Lasix) 40 mg PO DAILY [facility] Last Admin: 03/28/18 10:01 Dose: Not Given Gabapentin (Neurontin) 300 mg PO BID [facility] Last Admin: 03/30/18 10:12 Dose: Not Given Heparin Sodium (Porcine) (Heparin) 5,000 units SC Q8 [facility] Stop: 04/04/18 14:01 Last Admin: 03/30/18 05:06 Dose: Not Given Piperacillin Sod/Tazobactam (Sod 3.375 gm/ Sodium Chloride) 100 mls @ 200 mls/hr IVPB Q6H [facility]; Protocol Last Admin: 03/30/18 09:54 Dose: Not Given Lactic Acid (Lac-Hydrin 12% Lotion (225 G)) 0 gm EXT BID [facility] Last Admin: 03/30/18 10:08 Dose: 225 g Lactobacillus Acidophilus (Bacid Acidophilus) 1 cap PO BID [facility] Last Admin: 03/30/18 10:11 Dose: Not Given Metoprolol Tartrate (Lopressor) 50 mg PO BID [facility] Last Admin: 03/30/18 10:12 Dose: Not Given Ondansetron HCl (Zofran Inj) 4 mg IVP Q4 PRN PRN Reason: Nausea/Vomiting Last Admin: 03/28/18 05:46 Dose: 4 mg Oxycodone/Acetaminophen (Percocet 5/325 Mg Tab) 1 tab PO Q4H PRN PRN Reason: Pain, moderate (4-7) Stop: 04/04/18 10:51 Pantoprazole Sodium (Protonix Inj) 40 mg IVP Q12H [facility] Last Admin: 03/30/18 03:57 Dose: 40 mg - Labs Labs: 03/30/18 09:40 03/29/18 19:30 PT 15.9 SECONDS (9.7-12.2) H 03/28/18 15:27 INR 1.5 03/28/18 15:27 APTT 38 SECONDS (21-34) H 03/27/18 17:28 - Constitutional Appears: No Acute Distress - Head Exam Head Exam: ATRAUMATIC, NORMOCEPHALIC - Respiratory Exam Respiratory Exam: NORMAL BREATHING PATTERN - Cardiovascular Exam Cardiovascular Exam: REGULAR RHYTHM, +S1 - GI/Abdominal Exam GI & Abdominal Exam: Soft, Normal Bowel Sounds. absent: Distended, Guarding, Tenderness, Mass, Rebound - Extremities Exam Extremities Exam: Normal Inspection Assessment and Plan (1) Partial small bowel obstruction Assessment & Plan: Clinically resolved. Advance diet an observe No further work up at this time. Status: Acute (2) Nausea and vomiting Status: Resolved (3) Abdominal pain Status: Resolved
--- NOTE | 2018-03-30 12:58 | CP.PCM.PN ---
Subjective - Date & Time of Evaluation Date of Evaluation: 03/30/18 Time of Evaluation: 12:56 - Subjective Subjective: Medicine - Dr. Paredes's service Per RN, patient BG decreased to 54, given D50 and increased to 117. Still refusing PO meds and blood draws. Refused CT venogram ordered by cardio. Seen and examined at bedside. Patient denies chest pain, shortness of breath, abdominal pain, vomiting. Objective - Vital Signs/Intake and Output Vital Signs (last 24 hours): Temp Pulse Resp BP Pulse Ox 98.2 F 107 H 20 93/60 L 98 03/29/18 15:59 03/30/18 12:42 03/29/18 15:59 03/29/18 15:59 03/29/18 15:59 Intake and Output: 03/30/18 03/30/18 06:59 18:59 Intake Total 850 Output Total 600 Balance 250 - Medications Medications: Current Medications Bumetanide (Bumex) 1 mg PO DAILY [facility] Last Admin: 03/28/18 10:21 Dose: Not Given Furosemide (Lasix) 40 mg PO DAILY [facility] Last Admin: 03/28/18 10:01 Dose: Not Given Gabapentin (Neurontin) 300 mg PO BID [facility] Last Admin: 03/30/18 10:12 Dose: Not Given Heparin Sodium (Porcine) (Heparin) 5,000 units SC Q8 [facility] Stop: 04/04/18 14:01 Last Admin: 03/30/18 05:06 Dose: Not Given Piperacillin Sod/Tazobactam (Sod 3.375 gm/ Sodium Chloride) 100 mls @ 200 mls/hr IVPB Q6H [facility]; Protocol Last Admin: 03/30/18 09:54 Dose: Not Given Lactic Acid (Lac-Hydrin 12% Lotion (225 G)) 0 gm EXT BID [facility] Last Admin: 03/30/18 10:08 Dose: 225 g Lactobacillus Acidophilus (Bacid Acidophilus) 1 cap PO BID [facility] Last Admin: 03/30/18 10:11 Dose: Not Given Metoprolol Tartrate (Lopressor) 50 mg PO BID [facility] Last Admin: 03/30/18 10:12 Dose: Not Given Ondansetron HCl (Zofran Inj) 4 mg IVP Q4 PRN PRN Reason: Nausea/Vomiting Last Admin: 03/28/18 05:46 Dose: 4 mg Oxycodone/Acetaminophen (Percocet 5/325 Mg Tab) 1 tab PO Q4H PRN PRN Reason: Pain, moderate (4-7) Stop: 04/04/18 10:51 Pantoprazole Sodium (Protonix Inj) 40 mg IVP Q12H [facility] Last Admin: 03/30/18 03:57 Dose: 40 mg - Labs Labs: 03/30/18 09:40 03/29/18 19:30 PT 15.9 SECONDS (9.7-12.2) H 03/28/18 15:27 INR 1.5 03/28/18 15:27 APTT 38 SECONDS (21-34) H 03/27/18 17:28 - Constitutional Appears: Well, Non-toxic - Head Exam Head Exam: ATRAUMATIC, NORMAL INSPECTION - Eye Exam Eye Exam: EOMI, Normal appearance - Respiratory Exam Respiratory Exam: Clear to Ausculation Bilateral, NORMAL BREATHING PATTERN - Cardiovascular Exam Cardiovascular Exam: Irregular Rhythm - GI/Abdominal Exam GI & Abdominal Exam: Soft, Normal Bowel Sounds - Extremities Exam Additional comments: bilateral LE lymphedema - Neurological Exam Neurological Exam: Alert, Awake, Oriented x3. absent: Normal Gait Additional comments: unable to ambulate; bedbound - Psychiatric Exam Psychiatric exam: Agitated - Skin Additional comments: LE lymphedema with peeling skin and discoloration, discolored growth on right anterior tibialis Assessment and Plan - Assessment and Plan (Free Text) Assessment: 77 y/o bedbound female with Afib with RVR on IVC, stage 4 sacral ulcer, lymphede ma admitted for black vomiting x 2 in her [facility] on 03/27. Currently stable on med Xsigo. Afib with RVR -currently on tele IRR, HR 70s, can be 130s during meals -continue to monitor on tele -metoprolol tartrate 50 mg BID sacral ulcer stage 4 -pressure care - turn patient, modify bed if possible -wound cx ulcer: proteus mirabilis, klebsiella, s. aureus -PICC line consult (IR) ordered -appreciate ID recs as zosyn will not provide sufficient coverage per antibiogram - ID consult in -surgery consult ordered -percocet 5/325 1 tablet prior to wound cleaning PRN for pain bilateral lymphedema -caution with lasix and bumex due to hypokalemia, being held -consider elevation of legs -lac hydrin cream BID per wound care recs -wound care consult ordered for lymphedema skin care -f/u CT venogram ordered by cardiology for venous stasis; patient refused 03/29 -f/u d-dimer ordered by cardiology abdominal pain - resolved, partial SBO vs. gastritis -CT abd/pelvis concerning for possible bowel perforation per radiology. However surgery reconsulted and does not recommend surgery at this time. Patient endorsed BM so can be resolving SBO. Patient has not vomited ever since the incident in the [facility]. -Avoid NSAIDS for possible gastritis -zosyn 3.375 IV q6h started 03/28 -Follow surgery recs - patient SBO r/o and clear to resume diet -resumed heparin 5000mg sq q8h Hypomagenesemia and hypokalemia -attempt to continue to monitor and replete despite patient noncompliance case discussed with Dr. Lena Taylor, DO PGY-1
--- NOTE | 2018-03-30 17:01 | RAD ---
HISTORY: picc line placement confirmation COMPARISON: None available. TECHNIQUE: Chest, one view. FINDINGS: Examination limited by habitus. Left-sided PICC extends to the SVC. LUNGS: No focal consolidation. Please note that chest x-ray has limited sensitivity for the detection of pulmonary masses. PLEURA: No significant pleural effusion identified. No definite pneumothorax . CARDIOVASCULAR: Cardiomegaly. No significant atherosclerotic calcification present. OSSEOUS STRUCTURES: Degenerative changes. VISUALIZED UPPER ABDOMEN: Partially imaged IVC filter. OTHER FINDINGS: Right axillary clips. IMPRESSION: Left-sided PICC extends to the SVC. Additional findings as above.
[2018-03-30] MEDS: Potassium Chloride 20 mEq/15 ml LIQ UD PO SCH (17:22)
[2018-03-30 17:55] LABS: ALB/GLOB RATIO 0.7 (1.0-2.1); ALBUMIN 2.1 g/dL (3.5-5.0); ALT/SGPT 21 U/L (9-52); AST/SGOT 20 U/L (14-36); BLOOD UREA NITROGEN 7 mg/dL (7-17); CALCIUM 7.3 mg/dl (8.6-10.4); GFR NON-AFRICAN AMERICAN > 60
[2018-03-30 19:39] LABS: VENOUS BLOOD GAS BASE EXCESS 3.4 mmol/L (0.0-2.0); VENOUS BLOOD GAS PCO2 50 mmHg (40-60); VENOUS BLOOD GAS PO2 30 mm/Hg (30-55); VENOUS BLOOD PH 7.38 (7.32-7.43)
--- NOTE | 2018-03-30 19:50 | CP.PCM.CON ---
History of Present Illness - History of Present Illness History of Present Illness: Patient is a 77 yo lady admitted from [place] with coffee ground emesis GI eval for SBO in progress ID consulted for decubitus lcer PMH: chronic LEs edema, bed boud X 1 year now, A Fib, multiple MIs, breast/ endometrium cancer, S/P right mastectomy and LANDY, Hx of falls, last time she was on the floor X 3 days unable to get up , before she was found by her son. Soc. Hx:[place] resident FH CAD Review of Systems - Constitutional Constitutional: Weight Loss - EENT Eyes: absent: As Per HPI, Blind Spots, Blurred Vision, Change in Vision, Decreased Night Vision, Diplopia, Discharge, Dry Eye, Exophthalmos, Floaters, Irritation, Itchy Eyes, Loss of Peripheral Vision, Pain, Photophobia, Requires Corrective Lenses, Sees Flashes, Spots in Vision, Tunnel Vision, Other Visual Disturbances, Loss of Vision, Other Ears: absent: As Per HPI, Decreased Hearing, Ear Discharge, Ear Pain, Tinnitus, Abnormal Hearing, Disequilibrium, Dizziness, Other Nose/Mouth/Throat: absent: As Per HPI, Epistaxis, Nasal Congestion, Nasal Discharge, Nasal Obstruction, Nasal Trauma, Nose Pain, Post Nasal Drip, Sinus Pain, Sinus Pressure, Bleeding Gums, Change in Voice, Dental Pain, Dry Mouth, Dysphagia, Halitosis, Hoarsness, Lip Swelling, Mouth Lesions, Mouth Pain, Odynophagia, Sore Throat, Throat Swelling, Tongue Swelling, Facial Pain, Neck Pain, Neck Mass, Other - Breasts Additional comments: right mastectomy - Cardiovascular Cardiovascular: Edema, Leg Edema, Pedal Edema - Respiratory Respiratory: absent: As Per HPI, Cough, Dyspnea, Hemoptysis, Dyspnea on Exertion, Wheezing, Snoring, Stridor, Pain on Inspiration, Chest Congestion, Excessive Mucous Production, Change in Mucous Color, Pain with Coughing, Other - Gastrointestinal Gastrointestinal: Abdominal Pain, Nausea, Vomiting - Genitourinary Genitourinary: absent: As Per HPI, Change in Urinary Stream, Difficulty Urinating, Dysuria, Flank Pain, Hematuria, Pyuria, Nocturia, Urinary Incontinence, Urinary Frequency, Urinary Hesitance, Urinary Urgency, Voiding Freq/Small Amts, Freq UTI, Hx Renal/Bladder Calculi, Hx /Renal Surgery, Bladder Distension, Other - Reproductive: Female Reproductive:Female: Post Menopausal - Menstruation Menstruation: Post Menopausal - Musculoskeletal Musculoskeletal: Abnormal Gait, Joint Swelling, Limited Range of Motion, Muscle Weakness, Stiffness - Integumentary Additional comments: edema and discoloration of LEs - Neurological Neurological: Frequent Falls - Psychiatric Psychiatric: Anxiety, Depression - Endocrine Endocrine: absent: As Per HPI, Change in Body Appearance, Change in Libido, Cold Intolorance, Deepening of Voice, Excessive Sweating, Fatigue, Flushing, Heat Intolorance, Increase in Ring/Shoe/Hat Size, Palpitations, Polydipsia, Polyphagia, Polyuria, Other - Hematologic/Lymphatic Hematologic: absent: As Per HPI, Easy Bleeding, Easy Bruising, Lymphadenopathy, Other Past Patient History - Infectious Disease Hx of Infectious Diseases: None - Tetanus Immunizations Tetanus Immunization: Unknown - Past Medical History & Family History Past Medical History?: Yes - Past Social History Smoking Status: Never Smoked - CARDIAC Hx Cardia Arrhythmia: Yes Hx Congestive Heart Failure: Yes Hx Hypertension: Yes Hx Peripheral Edema: Yes (+3 ble edema) - PULMONARY Hx Asthma: Yes Hx Bronchitis: Yes - NEUROLOGICAL Hx Neurological Disorder: Yes (right hand/arm tremors) - HEENT Hx HEENT Problems: (wears glasses) - RENAL Hx Chronic Kidney Disease: No - ENDOCRINE/METABOLIC Hx Endocrine Disorders: No - HEMATOLOGICAL/ONCOLOGICAL Hx Anemia: Yes Hx Cancer: Yes (Uterine cancer) Hx Cirrhosis: No Hx Hepatitis A: No Hx Hepatitis B: No Hx Hepatitis C: No - INTEGUMENTARY Hx Dermatological Problems: Yes (HEEL PRESSURE ULCER ,L DTI AND STAGE 1 LEFT LATERAL SIDE,MASD SKIN FOLDS,) Other/Comment: INCONTINENCE ASSOCIATED SKIN DERMATITIS MULTIPLE BILATERAL BUTTOCKS , left lower abd pinhole wound that drains ysterectomy surgical juan pablo +mrsa 06/11/15, ble +3 edema ble edema redness dry flakey skin with weeping no open wounds, skin is discolored, both feet dry flakey skin, multiple scars from boils that healed to lower donald, buttocks redness excoriated, pt refusing to turn for assesment - MUSCULOSKELETAL/RHEUMATOLOGICAL Hx Arthritis: Yes (knees) - GASTROINTESTINAL Hx Gastrointestinal Disorders: No - GENITOURINARY/GYNECOLOGICAL Hx Genitourinary Disorders: Yes Hx Incontinence: Yes Other/Comment: vaginal bleeding on and off x 14 yrs has stopped after hyst in 2014 - PSYCHIATRIC Hx Depression: No Hx Substance Use: No - SURGICAL HISTORY Hx Appendectomy: Yes Hx Hysterectomy: Yes (for uterine cancer) - ANESTHESIA Hx Anesthesia: Yes Hx Anesthesia Reactions: No Meds Allergies/Adverse Reactions: Allergies Allergy/AdvReac Type Severity Reaction Status Date / Time erythromycin base Allergy ANAPHYLAXIS Verified 03/27/18 16:58 - Medications Medications: Current Medications Bumetanide (Bumex) 1 mg PO DAILY [facility] Last Admin: 03/28/18 10:21 Dose: Not Given Furosemide (Lasix) 40 mg PO DAILY [facility] Last Admin: 03/28/18 10:01 Dose: Not Given Gabapentin (Neurontin) 300 mg PO BID [facility] Last Admin: 03/30/18 17:22 Dose: Not Given Heparin Sodium (Porcine) (Heparin) 5,000 units SC Q8 [facility] Stop: 04/04/18 14:01 Last Admin: 03/30/18 15:41 Dose: Not Given Piperacillin Sod/Tazobactam (Sod 3.375 gm/ Sodium Chloride) 100 mls @ 200 mls/hr IVPB Q6H [facility]; Protocol Last Admin: 03/30/18 19:32 Dose: 200 mls/hr Lactic Acid (Lac-Hydrin 12% Lotion (225 G)) 0 gm EXT BID [facility] Last Admin: 03/30/18 17:21 Dose: Not Given Lactobacillus Acidophilus (Bacid Acidophilus) 1 cap PO BID [facility] Last Admin: 03/30/18 17:21 Dose: Not Given Metoprolol Tartrate (Lopressor) 50 mg PO BID [facility] Last Admin: 03/30/18 17:22 Dose: Not Given Ondansetron HCl (Zofran Inj) 4 mg IVP Q4 PRN PRN Reason: Nausea/Vomiting Last Admin: 03/28/18 05:46 Dose: 4 mg Oxycodone/Acetaminophen (Percocet 5/325 Mg Tab) 1 tab PO Q4H PRN PRN Reason: Pain, moderate (4-7) Stop: 04/04/18 10:51 Pantoprazole Sodium (Protonix Inj) 40 mg IVP Q12H [facility] Last Admin: 03/30/18 18:53 Dose: 40 mg Potassium Chloride (Potassium Chloride Oral Soln) 20 meq PO BID [facility] Last Admin: 03/30/18 17:22 Dose: Not Given Physical Exam - Constitutional Appears: No Acute Distress, Chronically Ill - Head Exam Head Exam: ATRAUMATIC, NORMOCEPHALIC - Eye Exam Eye Exam: absent: Scleral icterus - ENT Exam ENT Exam: Mucous Membranes Dry, Normal External Ear Exam - Neck Exam Neck exam: Negative for: Lymphadenopathy - Respiratory Exam Respiratory Exam: Decreased Breath Sounds, Clear to Auscultation Bilateral - Cardiovascular Exam Cardiovascular Exam: REGULAR RHYTHM, +S1, +S2 - GI/Abdominal Exam GI & Abdominal Exam: Diminished Bowel Sounds, Soft. absent: Tenderness - Rectal Exam Rectal Exam: Deferred - Exam Exam: NORMAL INSPECTION - Extremities Exam Extremities exam: Positive for: pedal edema, pedal pulses present. Negative for: calf tenderness, full ROM, tenderness - Back Exam Back exam: absent: CVA tenderness (L), CVA tenderness (R) - Neurological Exam Neurological exam: Alert, CN II-XII Intact, Oriented x3, Reflexes Normal - Psychiatric Exam Psychiatric exam: Depressed - Skin Skin Exam: Dry Additional comments: + decubitus III Results - Vital Signs Recent Vital Signs: Last Vital Signs Temp 98.7 F 03/30/18 19:08 Pulse 81 03/30/18 19:08 Resp 20 03/30/18 15:00 BP 130/77 03/30/18 19:08 Pulse Ox 96 03/30/18 15:00 - Labs Result Diagrams: 03/30/18 09:40 03/30/18 17:23 Labs: Laboratory Results - last 24 hr 03/28/18 03/29/18 03/29/18 13:49 19:30 19:30 WBC 6.7 RBC 4.45 Hgb 13.1 Hct 39.8 MCV 89.3 MCH 29.3 MCHC 32.9 L RDW 16.9 H Plt Count 294 MPV 7.4 Neut % (Auto) 75.3 H Lymph % (Auto) 13.8 L Meeker % (Auto) 7.1 Eos % (Auto) 2.5 Baso % (Auto) 1.3 Neut # (Auto) 5.1 Lymph # (Auto) 0.9 L Meeker # (Auto) 0.5 Eos # (Auto) 0.2 Baso # (Auto) 0.1 pO2 VBG pH VBG pCO2 VBG HCO3 VBG Total CO2 VBG O2 Sat (Calc) VBG Base Excess VBG Potassium Glucose Lactate Sodium 142 Potassium 3.2 L Chloride 108 H Carbon Dioxide 24 Anion Gap 12 BUN 8 Creatinine 0.6 L Est GFR ( Amer) > 60 Est GFR (Non-Af Amer) > 60 POC Glucose (mg/dL) Random Glucose 86 Calcium 7.2 L Phosphorus Magnesium 1.2 L Total Bilirubin AST ALT Alkaline Phosphatase Total Protein Albumin Globulin Albumin/Globulin Ratio Venous Blood Potassium Ur L.pneumophila Ag Negative Mycoplasma pneumon IgM Negative 03/29/18 03/30/18 03/30/18 20:54 06:36 06:38 WBC RBC Hgb Hct MCV MCH MCHC RDW Plt Count MPV Neut % (Auto) Lymph % (Auto) Meeker % (Auto) Eos % (Auto) Baso % (Auto) Neut # (Auto) Lymph # (Auto) Meeker # (Auto) Eos # (Auto) Baso # (Auto) pO2 VBG pH VBG pCO2 VBG HCO3 VBG Total CO2 VBG O2 Sat (Calc) VBG Base Excess VBG Potassium Glucose Lactate Sodium Potassium Chloride Carbon Dioxide Anion Gap BUN Creatinine Est GFR ( Amer) Est GFR (Non-Af Amer) POC Glucose (mg/dL) 104 60 L 54 L Random Glucose Calcium Phosphorus Magnesium Total Bilirubin AST ALT Alkaline Phosphatase Total Protein Albumin Globulin Albumin/Globulin Ratio Venous Blood Potassium Ur L.pneumophila Ag Mycoplasma pneumon IgM 03/30/18 03/30/18 03/30/18 07:16 07:20 07:54 WBC RBC Hgb Hct MCV MCH MCHC RDW Plt Count MPV Neut % (Auto) Lymph % (Auto) Meeker % (Auto) Eos % (Auto) Baso % (Auto) Neut # (Auto) Lymph # (Auto) Meeker # (Auto) Eos # (Auto) Baso # (Auto) pO2 VBG pH VBG pCO2 VBG HCO3 VBG Total CO2 VBG O2 Sat (Calc) VBG Base Excess VBG Potassium Glucose Lactate Sodium Potassium Chloride Carbon Dioxide Anion Gap BUN Creatinine Est GFR ( Amer) Est GFR (Non-Af Amer) POC Glucose (mg/dL) 33 L* 58 L 117 H Random Glucose Calcium Phosphorus Magnesium Total Bilirubin AST ALT Alkaline Phosphatase Total Protein Albumin Globulin Albumin/Globulin Ratio Venous Blood Potassium Ur L.pneumophila Ag Mycoplasma pneumon IgM 03/30/18 03/30/18 03/30/18 09:40 17:23 19:30 WBC 8.2 RBC 4.84 Hgb 14.5 Hct 43.4 MCV 89.7 MCH 30.0 MCHC 33.4 RDW 17.1 H Plt Count 303 MPV 7.5 Neut % (Auto) 78.4 H Lymph % (Auto) 11.2 L Meeker % (Auto) 6.8 Eos % (Auto) 3.1 Baso % (Auto) 0.5 Neut # (Auto) 6.4 Lymph # (Auto) 0.9 L Meeker # (Auto) 0.6 Eos # (Auto) 0.3 Baso # (Auto) 0.0 pO2 30 VBG pH 7.38 VBG pCO2 50 VBG HCO3 26.4 VBG Total CO2 31.1 H VBG O2 Sat (Calc) 60.3 VBG Base Excess 3.4 H VBG Potassium 2.7 L Glucose 93 Lactate 1.6 Sodium 142 140.0 Potassium 2.9 L Chloride 107 108.0 H Carbon Dioxide 26 Anion Gap 12 BUN 7 Creatinine 0.6 L Est GFR ( Amer) > 60 Est GFR (Non-Af Amer) > 60 POC Glucose (mg/dL) Random Glucose 101 Calcium 7.3 L Phosphorus 1.8 L Magnesium 1.4 L Total Bilirubin 0.7 AST 20 ALT 21 Alkaline Phosphatase 109 Total Protein 4.9 L Albumin 2.1 L Globulin 2.8 Albumin/Globulin Ratio 0.7 L Venous Blood Potassium 2.7 L Ur L.pneumophila Ag Mycoplasma pneumon IgM Assessment & Plan (1) Abdominal pain Status: Acute (2) Atrial fibrillation with RVR Status: Acute (3) Partial small bowel obstruction Status: Acute (4) Decubitus skin ulcer Status: Acute - Assessment and Plan (Free Text) Assessment: Stage IV sacrum from [place] Zosyn is appropriate coverage consider surgical eval for debridement recc CT sacrum w/o contrast to r/o OM
--- NOTE | 2018-03-30 21:09 | CP.PCM.PN ---
Subjective - Date & Time of Evaluation Date of Evaluation: 03/30/18 Time of Evaluation: 21:03 - Subjective Subjective: Surgery Pt seen and examined. Denies nausea or vomiting. Pt is c/o abdominal pain. Lower abdomen. Denies BM today. Denies hematochezia, melena, diarrhea. CXR and AXR reviewed. Gastric distention and dilated SB noted. Offered NGT placement several times to decompress stomach that may relieve pain. Pt is refusing any intervention and wants pain meds only. Risk explained in detail to patient and to son on bedside, including possible bowel perforation and needing emergent surgery if perforates that can be extremely serious given her multiple co- morbidities. Pt and family understood. Pt also refusing sacral wound care or examination of the wound. Pictures sent by primary reviewed: clean wound base with granulation,no eschar, no necrosis, no bleeding, no bone exposure. Wound culture result likely secondary to fecal/urine/skin contamination. Objective - Vital Signs/Intake and Output Vital Signs (last 24 hours): Temp Pulse Resp BP Pulse Ox 98.7 F 81 20 130/77 96 03/30/18 19:08 03/30/18 19:08 03/30/18 15:00 03/30/18 19:08 03/30/18 15:00 Intake and Output: 03/30/18 03/31/18 18:59 06:59 Intake Total 360 Balance 360 - Medications Medications: Current Medications Bumetanide (Bumex) 1 mg PO DAILY [facility] Last Admin: 03/28/18 10:21 Dose: Not Given Furosemide (Lasix) 40 mg PO DAILY [facility] Last Admin: 03/28/18 10:01 Dose: Not Given Gabapentin (Neurontin) 300 mg PO BID [facility] Last Admin: 03/30/18 17:22 Dose: Not Given Heparin Sodium (Porcine) (Heparin) 5,000 units SC Q8 [facility] Stop: 04/04/18 14:01 Last Admin: 03/30/18 15:41 Dose: Not Given Piperacillin Sod/Tazobactam (Sod 3.375 gm/ Sodium Chloride) 100 mls @ 200 mls/hr IVPB Q6H [facility]; Protocol Last Admin: 03/30/18 19:32 Dose: 200 mls/hr Potassium Chloride (Potassium Chloride 20 Meq/100 Ml) 100 mls @ 50 mls/hr IVPB Q2H [facility] Stop: 03/31/18 00:59 Potassium Chloride/Dextrose/Sod Cl (Potassium Chl 40 Meq In D5-1/2ns) 1,000 mls @ 60 mls/hr IV .[id number] [facility] Magnesium Sulfate/Dextrose (Magnesium Sulfate 1 Gm/100 Ml D5w) 1 gm in 100 mls @ 300 mls/hr IVPB Q30M [facility] Stop: 03/30/18 21:19 Last Admin: 03/30/18 20:32 Dose: 300 mls/hr Ketorolac Tromethamine (Toradol) 30 mg IVP Q6 PRN PRN Reason: Pain, moderate (4-7) Last Admin: 03/30/18 20:51 Dose: 30 mg Lactic Acid (Lac-Hydrin 12% Lotion (225 G)) 0 gm EXT BID [facility] Last Admin: 03/30/18 17:21 Dose: Not Given Lactobacillus Acidophilus (Bacid Acidophilus) 1 cap PO BID [facility] Last Admin: 03/30/18 17:21 Dose: Not Given Metoprolol Tartrate (Lopressor) 50 mg PO BID [facility] Last Admin: 03/30/18 17:22 Dose: Not Given Ondansetron HCl (Zofran Inj) 4 mg IVP Q4 PRN PRN Reason: Nausea/Vomiting Last Admin: 03/28/18 05:46 Dose: 4 mg Oxycodone/Acetaminophen (Percocet 5/325 Mg Tab) 1 tab PO Q4H PRN PRN Reason: Pain, moderate (4-7) Stop: 04/04/18 10:51 Pantoprazole Sodium (Protonix Inj) 40 mg IVP Q12H [facility] Last Admin: 03/30/18 18:53 Dose: 40 mg Potassium Chloride (Potassium Chloride Oral Soln) 20 meq PO BID [facility] Last Admin: 03/30/18 17:22 Dose: Not Given - Labs Labs: 03/30/18 09:40 03/30/18 17:23 PT 15.9 SECONDS (9.7-12.2) H 03/28/18 15:27 INR 1.5 03/28/18 15:27 APTT 38 SECONDS (21-34) H 03/27/18 17:28 - Constitutional Appears: In Acute Distress, Agitated, Chronically Ill - Head Exam Head Exam: ATRAUMATIC, NORMAL INSPECTION, NORMOCEPHALIC - Eye Exam Eye Exam: EOMI, Normal appearance, PERRL Pupil Exam: NORMAL ACCOMODATION - ENT Exam ENT Exam: Mucous Membranes Moist - Neck Exam Neck Exam: Full ROM, Normal Inspection - Respiratory Exam Respiratory Exam: NORMAL BREATHING PATTERN - Cardiovascular Exam Cardiovascular Exam: Tachycardia - GI/Abdominal Exam GI & Abdominal Exam: Tenderness. absent: Mass Additional comments: well healed scars. morbidly obese. Tympanic. foul body odor. - Extremities Exam Extremities Exam: Pedal Edema, Tenderness. absent: Full ROM, Normal Inspection Additional comments: venous stasis of b/l LE with cellulitis. - Back Exam Back Exam: absent: Full ROM, NORMAL INSPECTION - Neurological Exam Neurological Exam: Alert, Awake, Oriented x3. absent: Normal Gait - Psychiatric Exam Psychiatric exam: Agitated, Anxious. absent: Normal Affect, Normal Mood - Skin Skin Exam: Erythema. absent: Dry, Intact Assessment and Plan - Assessment and Plan (Free Text) Assessment: partial SBO vs ileus, sacral wound, venous stasis with cellulitis : Pt is hungry and wants to eat, no vomiting, no BM today. -Pt refusing surgical care. -Refusing NGT -Refusing wound care: Medihoney and optiform to sacral wound -REcommend leg elevation, compression -ABX -May start TPN via PICC for bowel rest -Pain /nausea control: avoid opiates -Symeticon for gas pain -Oil enema -PT -Palliative care
[2018-03-30] MEDS: Simethicone 80 mg Chewtab PO SCH (21:38)
[2018-03-30] MEDS: Potassium Chloride 20 mEq 100 ML IVPB SCH (22:10)
[2018-03-31] MEDS: Potassium Chloride 20 mEq 100 ML IVPB SCH (00:37)
[2018-03-31] MEDS: Piperacillin/Tazobact 3.375 GM in Sodium Chloride 100 ML IVPB SCH ×4 (02:59→20:01)
[2018-03-31] MEDS: Potassium Chl 40 mEq in D5-1/2 1,000 ML IV SCH ×2 (04:19→12:16)
[2018-03-31 07:19] LABS: BASO % 0.6 % (0.0-2.0); EOS # 0.2 K/uL (0.0-0.7); EOS % 3.2 % (0.0-4.0); HEMOGLOBIN 13.3 g/dL (11.0-16.0); LYMPH # 0.9 K/uL (1.0-4.3); LYMPH % 11.3 % (20.0-40.0); MEAN CELL VOLUME 88.6 fL (81.0-99.0); MEAN CORPUSCULAR HGB CONC 33.9 g/dL (33.0-37.0); MEAN PLATELET VOLUME 7.9 fL (7.2-11.7); MONO # 0.5 K/uL (0.0-0.8); MONO % 6.3 % (0.0-10.0); NEUT # 6.1 K/uL (1.8-7.0); NEUT % 78.6 % (50.0-75.0); RBC 4.42 Mil/uL (3.80-5.20); WHITE BLOOD COUNT 7.8 K/uL (4.8-10.8)
[2018-03-31 07:28] LABS: ALB/GLOB RATIO 0.7 (1.0-2.1); ALT/SGPT 23 U/L (9-52); AST/SGOT 22 U/L (14-36); BLOOD UREA NITROGEN 9 mg/dL (7-17); CALCIUM 7.4 mg/dl (8.6-10.4); GFR NON-AFRICAN AMERICAN > 60
[2018-03-31] MEDS ORDERED: Potassium Chl 40 mEq in D5-1/2 1,000 ML IV SCH (09:00)
[2018-03-31] MEDS: Lactobacillus Acidophilus 500 MU Cap PO SCH ×3 (09:38→18:52)
[2018-03-31] MEDS: Ammonium Lactate 12% Lotion (225 g) EXT SCH ×2 (09:38→17:53)
[2018-03-31] MEDS: Simethicone 80 mg Chewtab PO SCH ×3 (09:38→17:54)
[2018-03-31] MEDS: Potassium Chloride 20 mEq/15 ml LIQ UD PO SCH ×2 (09:39→17:54)
--- NOTE | 2018-03-31 10:17 | RAD ---
Date of service: 03/30/2018 HISTORY: Abdomen upright Xray, r/o obstruction COMPARISON: Abdomen pelvis CT 03/27/2018. FINDINGS: BOWEL: Gas seen distending the stomach small and large bowel though bowel loops appear somewhat less distended currently than previously shown prior CT 03/27/2018 that this is particularly true at the central and left upper quadrant abdomen. No gross free intrarenal gas collection identified however abdomen obstructive series is more sensitive for identified free intra peritoneal gas. Overall pattern remains suggestive of an ileus favored over partial or intermittent small bowel obstruction and further clinical correlation is recommended. Inferior vena cava filter again identified in position as well as surgical clips at the lower abdomen. BONES: Normal. OTHER FINDINGS: None. IMPRESSION: Findings most compatible with ileus. Exam not compatible with complete distal small bowel obstruction though intermittent or partial distal small bowel obstruction not fully excluded. Please see discussion above.
--- NOTE | 2018-03-31 10:54 | CP.PCM.PN ---
Subjective - Date & Time of Evaluation Date of Evaluation: 03/31/18 Time of Evaluation: 10:30 - Subjective Subjective: F/u SBO. Covering DR Bah Pt seen with Rn and staff.. HAving good BMs.. Denies naus, vomit, RB, melena, CP SOB, VOGEL, cough, SZ Objective - Vital Signs/Intake and Output Vital Signs (last 24 hours): Temp Pulse Resp BP Pulse Ox 97.6 F 99 H 20 113/78 96 03/31/18 07:00 03/31/18 08:00 03/31/18 07:00 03/31/18 07:00 03/31/18 07:00 - Medications Medications: Current Medications Bumetanide (Bumex) 1 mg PO DAILY [facility] Last Admin: 03/28/18 10:21 Dose: Not Given Furosemide (Lasix) 40 mg PO DAILY [facility] Last Admin: 03/28/18 10:01 Dose: Not Given Gabapentin (Neurontin) 300 mg PO BID [facility] Last Admin: 03/31/18 09:38 Dose: Not Given Heparin Sodium (Porcine) (Heparin) 5,000 units SC Q8 [facility] Stop: 04/04/18 14:01 Last Admin: 03/31/18 05:15 Dose: Not Given Piperacillin Sod/Tazobactam (Sod 3.375 gm/ Sodium Chloride) 100 mls @ 200 mls/hr IVPB Q6H [facility]; Protocol Last Admin: 03/31/18 09:00 Dose: 200 mls/hr Potassium Chloride/Dextrose/Sod Cl (Potassium Chl 40 Meq In D5-1/2ns) 1,000 mls @ 60 mls/hr IV .[id number] [facility] Last Admin: 03/31/18 04:19 Dose: 60 mls/hr Potassium Chloride (Potassium Chloride 20 Meq/100 Ml) 20 meq in 100 mls @ 50 mls/hr IVPB Q2H [facility] Stop: 03/31/18 13:14 Last Admin: 03/31/18 09:47 Dose: 50 mls/hr Lactic Acid (Lac-Hydrin 12% Lotion (225 G)) 0 gm EXT BID [facility] Last Admin: 03/31/18 09:38 Dose: 225 g Lactobacillus Acidophilus (Bacid Acidophilus) 1 cap PO BID [facility] Last Admin: 03/31/18 09:41 Dose: Not Given Metoprolol Tartrate (Lopressor) 50 mg PO BID [facility] Last Admin: 03/31/18 09:38 Dose: Not Given Morphine Sulfate (Morphine) 1 mg IV Q6 PRN PRN Reason: Pain, moderate (4-7) Ondansetron HCl (Zofran Inj) 4 mg IVP Q4 PRN PRN Reason: Nausea/Vomiting Last Admin: 03/28/18 05:46 Dose: 4 mg Oxycodone/Acetaminophen (Percocet 5/325 Mg Tab) 1 tab PO Q4H PRN PRN Reason: Pain, moderate (4-7) Stop: 04/04/18 10:51 Pantoprazole Sodium (Protonix Inj) 40 mg IVP Q12H [facility] Last Admin: 03/31/18 05:04 Dose: 40 mg Potassium Chloride (Potassium Chloride Oral Soln) 20 meq PO BID [facility] Last Admin: 03/31/18 09:39 Dose: 20 meq Simethicone (Mylicon Chew Tab) 80 mg PO TID [facility] Last Admin: 03/31/18 09:38 Dose: Not Given - Labs Labs: 03/31/18 06:57 03/31/18 06:57 PT 15.9 SECONDS (9.7-12.2) H 03/28/18 15:27 INR 1.5 03/28/18 15:27 APTT 38 SECONDS (21-34) H 03/27/18 17:28 - Respiratory Exam Respiratory Exam: Clear to Ausculation Bilateral - Cardiovascular Exam Cardiovascular Exam: RRR - GI/Abdominal Exam GI & Abdominal Exam: Soft, Normal Bowel Sounds. absent: Guarding, Tenderness, Mass, Rebound - Neurological Exam Neurological Exam: Alert, Awake Assessment and Plan (1) Abdominal pain Status: Acute (2) Atrial fibrillation Status: Acute (3) Partial small bowel obstruction Assessment & Plan: SBO vs ileus. ABdom is softer- clinically improving. HAving BMs. Can advanc e diet Status: Acute (4) Vomiting Assessment & Plan: SBO.. Vomiting- better Status: Acute (5) Obesity Status: Acute
[2018-03-31] MEDS ORDERED: Glucagon Recombinant 1 mg Inj IM PRN (12:12)
[2018-03-31] MEDS ORDERED: Dextrose 50% SYRINGE Inj (50 ml) IVP PRN (12:12)
--- NOTE | 2018-03-31 16:43 | CP.PCM.PN ---
Subjective - Date & Time of Evaluation Date of Evaluation: 03/31/18 Time of Evaluation: 16:32 - Subjective Subjective: Patient saw surgery recently and was put on NPO by them. She wants to eat "real food." Otherwise patient denies abd pain, chest pain, palpitations, shortness of breath. Objective - Vital Signs/Intake and Output Vital Signs (last 24 hours): Temp Pulse Resp BP Pulse Ox 97.4 F L 97 H 20 123/73 96 03/31/18 15:10 03/31/18 15:10 03/31/18 15:10 03/31/18 15:10 03/31/18 15:10 - Medications Medications: Current Medications Bumetanide (Bumex) 1 mg PO DAILY [facility] Last Admin: 03/28/18 10:21 Dose: Not Given Dextrose (Dextrose 50% Inj) 0 ml IVP .STAT PRN; Protocol PRN Reason: Hypoglycemia Protocol Dextrose (Glutose 15) 0 gm PO .ONCE PRN; Protocol PRN Reason: Hypoglycemia Protocol Furosemide (Lasix) 40 mg PO DAILY [facility] Last Admin: 03/28/18 10:01 Dose: Not Given Gabapentin (Neurontin) 300 mg PO BID [facility] Last Admin: 03/31/18 09:38 Dose: Not Given Glucagon (Glucagen Diagnostic Kit) 0 mg IM .STAT PRN; Protocol PRN Reason: Hypoglycemia Protocol Heparin Sodium (Porcine) (Heparin) 5,000 units SC Q8 [facility] Stop: 04/04/18 14:01 Last Admin: 03/31/18 13:06 Dose: Not Given Piperacillin Sod/Tazobactam (Sod 3.375 gm/ Sodium Chloride) 100 mls @ 200 mls/hr IVPB Q6H [facility]; Protocol Last Admin: 03/31/18 13:16 Dose: 200 mls/hr Potassium Chloride/Dextrose/Sod Cl (Potassium Chl 40 Meq In D5-1/2ns) 1,000 mls @ 60 mls/hr IV .[id number] [facility] Last Admin: 03/31/18 12:16 Dose: Not Given Dextrose (Dextrose 5% In Water 1000 Ml) 1,000 mls @ 0 mls/hr IV .Q0M PRN; Protocol PRN Reason: Hypoglycemia Protocol Lactic Acid (Lac-Hydrin 12% Lotion (225 G)) 0 gm EXT BID [facility] Last Admin: 03/31/18 09:38 Dose: 225 g Lactobacillus Acidophilus (Bacid Acidophilus) 1 cap PO BID [facility] Last Admin: 03/31/18 09:41 Dose: Not Given Metoprolol Tartrate (Lopressor) 50 mg PO BID [facility] Last Admin: 03/31/18 09:38 Dose: Not Given Morphine Sulfate (Morphine) 1 mg IV Q6 PRN PRN Reason: Pain, moderate (4-7) Ondansetron HCl (Zofran Inj) 4 mg IVP Q4 PRN PRN Reason: Nausea/Vomiting Last Admin: 03/28/18 05:46 Dose: 4 mg Oxycodone/Acetaminophen (Percocet 5/325 Mg Tab) 1 tab PO Q4H PRN PRN Reason: Pain, moderate (4-7) Stop: 04/04/18 10:51 Pantoprazole Sodium (Protonix Inj) 40 mg IVP Q12H [facility] Last Admin: 03/31/18 05:04 Dose: 40 mg Potassium Chloride (Potassium Chloride Oral Soln) 20 meq PO BID [facility] Last Admin: 03/31/18 09:39 Dose: 20 meq Simethicone (Mylicon Chew Tab) 80 mg PO TID [facility] Last Admin: 03/31/18 13:07 Dose: Not Given - Labs Labs: 03/31/18 06:57 03/31/18 06:57 PT 15.9 SECONDS (9.7-12.2) H 03/28/18 15:27 INR 1.5 03/28/18 15:27 APTT 38 SECONDS (21-34) H 03/27/18 17:28 Assessment and Plan - Assessment and Plan (Free Text) Assessment: 77 y/o bedbound female with Afib with RVR on IVC, stage 4 sacral ulcer, lymphedema admitted for black vomiting x 2 in her [facility] on 03/27. Stephanie tly stable on [email or web address]. Afib with RVR -currently on tele IRR, HR 70s, can be 130s during meals -continue to monitor on tele -metoprolol tartrate 50 mg BID sacral ulcer stage 4 -pressure care - turn patient, modify bed if possible -wound cx ulcer: proteus mirabilis, klebsiella, s. aureus -PICC line inserted -ID recommended to continue with zosyn 3.375 q6h -CT scan of sacrum ordered per surgery recs to r/o osteomyelitis -percocet 5/325 1 tablet prior to wound cleaning PRN for pain bilateral lymphedema -caution with lasix and bumex due to hypokalemia, being held -consider elevation of legs -lac hydrin cream BID per wound care recs -f/u CT venogram ordered by cardiology for venous stasis; patient refused 03/29 -f/u d-dimer ordered by cardiology abdominal pain - resolved, partial SBO vs. gastritis -CT abd/pelvis concerning for possible bowel perforation per radiology. Patient endorsed BM so can be resolving SBO. Patient has not vomited ever since the incident in the [facility]. -Surgery recommends advancement to clear liquid diet -Pt refused NGT decompression SBO -Avoid NSAIDS for possible gastritis Hypomagenesemia and hypokalemia -attempt to continue to monitor and replete despite patient noncompliance -KCl 3.2 03/31; repleted with KCL 40 meq Patient noncompliance -patient continues to consistently refuse PO medications -patient refuses surgical care -consider palliative care, also ordered spiritual care consult -need discussion with family (sons: Robyn [phone]; Rico [phone]) DVT ppx: resumed heparin 5000mg sq q8h GI ppx: protonix 40 mg IV q12h case discussed with Dr. Lena Taylor, PGY-1
[2018-04-01] MEDS: Piperacillin/Tazobact 3.375 GM in Sodium Chloride 100 ML IVPB SCH ×4 (01:51→21:42)
[2018-04-01] MEDS: Potassium Chl 40 mEq in D5-1/2 1,000 ML IV SCH (06:23)
[2018-04-01 07:47] LABS: BASO % 0.8 % (0.0-2.0); EOS # 0.2 K/uL (0.0-0.7); EOS % 3.9 % (0.0-4.0); HEMOGLOBIN 12.7 g/dL (11.0-16.0); LYMPH # 0.7 K/uL (1.0-4.3); LYMPH % 13.3 % (20.0-40.0); MEAN CELL VOLUME 88.6 fL (81.0-99.0); MEAN CORPUSCULAR HEMOGLOBIN 30.2 pg (27.0-31.0); MEAN CORPUSCULAR HGB CONC 34.1 g/dL (33.0-37.0); MEAN PLATELET VOLUME 7.9 fL (7.2-11.7); MONO # 0.5 K/uL (0.0-0.8); MONO % 8.9 % (0.0-10.0); NEUT # 3.9 K/uL (1.8-7.0); NEUT % 73.1 % (50.0-75.0); NRBC % 0.2 % (0.0-2.0); RBC 4.19 Mil/uL (3.80-5.20); RED CELL DISTRIBUTION WIDTH 16.7 % (11.5-14.5); WHITE BLOOD COUNT 5.3 K/uL (4.8-10.8)
[2018-04-01 08:14] LABS: ALB/GLOB RATIO 0.7 (1.0-2.1); ALBUMIN 1.9 g/dL (3.5-5.0); ALT/SGPT 25 U/L (9-52); AST/SGOT 25 U/L (14-36); BLOOD UREA NITROGEN 9 mg/dL (7-17); CALCIUM 7.6 mg/dl (8.6-10.4); GFR NON-AFRICAN AMERICAN > 60
--- NOTE | 2018-04-01 10:09 | CP.PCM.PN ---
Subjective - Date & Time of Evaluation Date of Evaluation: 04/01/18 Time of Evaluation: 09:50 - Subjective Subjective: f/u SBO. Covering DR Bah. Reports feeling better/ Denies nausea ,vomiting, fever, chills, SZ, RB, melena, abdom pain, VOGEL, cough, hematuria Objective - Vital Signs/Intake and Output Vital Signs (last 24 hours): Temp Pulse Resp BP Pulse Ox 98.0 F 102 H 20 110/62 97 04/01/18 07:56 04/01/18 04:33 04/01/18 04:33 04/01/18 04:33 04/01/18 04:33 Intake and Output: 04/01/18 04/01/18 06:59 18:59 Intake Total 1000 Balance 1000 - Medications Medications: Current Medications Bumetanide (Bumex) 1 mg PO DAILY [facility] Last Admin: 03/28/18 10:21 Dose: Not Given Dextrose (Dextrose 50% Inj) 0 ml IVP .STAT PRN; Protocol PRN Reason: Hypoglycemia Protocol Dextrose (Glutose 15) 0 gm PO .ONCE PRN; Protocol PRN Reason: Hypoglycemia Protocol Furosemide (Lasix) 40 mg PO DAILY [facility] Last Admin: 03/28/18 10:01 Dose: Not Given Gabapentin (Neurontin) 300 mg PO BID [facility] Last Admin: 03/31/18 17:54 Dose: Not Given Glucagon (Glucagen Diagnostic Kit) 0 mg IM .STAT PRN; Protocol PRN Reason: Hypoglycemia Protocol Heparin Sodium (Porcine) (Heparin) 5,000 units SC Q8 [facility] Stop: 04/04/18 14:01 Last Admin: 04/01/18 06:47 Dose: Not Given Piperacillin Sod/Tazobactam (Sod 3.375 gm/ Sodium Chloride) 100 mls @ 200 mls/hr IVPB Q6H [facility]; Protocol Last Admin: 04/01/18 01:51 Dose: 200 mls/hr Potassium Chloride/Dextrose/Sod Cl (Potassium Chl 40 Meq In D5-1/2ns) 1,000 mls @ 60 mls/hr IV .[id number] [facility] Last Admin: 04/01/18 06:23 Dose: 60 mls/hr Dextrose (Dextrose 5% In Water 1000 Ml) 1,000 mls @ 0 mls/hr IV .Q0M PRN; Protocol PRN Reason: Hypoglycemia Protocol Lactic Acid (Lac-Hydrin 12% Lotion (225 G)) 0 gm EXT BID [facility] Last Admin: 03/31/18 17:53 Dose: Not Given Lactobacillus Acidophilus (Bacid Acidophilus) 1 cap PO BID [facility] Last Admin: 03/31/18 18:52 Dose: Not Given Metoprolol Tartrate (Lopressor) 50 mg PO BID [facility] Last Admin: 03/31/18 17:54 Dose: Not Given Morphine Sulfate (Morphine) 1 mg IV Q6 PRN PRN Reason: Pain, moderate (4-7) Ondansetron HCl (Zofran Inj) 4 mg IVP Q4 PRN PRN Reason: Nausea/Vomiting Last Admin: 03/28/18 05:46 Dose: 4 mg Oxycodone/Acetaminophen (Percocet 5/325 Mg Tab) 1 tab PO Q4H PRN PRN Reason: Pain, moderate (4-7) Stop: 04/04/18 10:51 Pantoprazole Sodium (Protonix Inj) 40 mg IVP Q12H [facility] Last Admin: 04/01/18 04:17 Dose: 40 mg Potassium Chloride (Potassium Chloride Oral Soln) 20 meq PO BID [facility] Last Admin: 03/31/18 17:54 Dose: Not Given Simethicone (Mylicon Chew Tab) 80 mg PO TID [facility] Last Admin: 03/31/18 17:54 Dose: Not Given - Labs Labs: 04/01/18 07:35 04/01/18 07:35 PT 15.9 SECONDS (9.7-12.2) H 03/28/18 15:27 INR 1.5 03/28/18 15:27 APTT 38 SECONDS (21-34) H 03/27/18 17:28 - Constitutional Appears: Non-toxic - Respiratory Exam Respiratory Exam: Clear to Ausculation Bilateral - Cardiovascular Exam Cardiovascular Exam: RRR - GI/Abdominal Exam GI & Abdominal Exam: Soft, Normal Bowel Sounds. absent: Tenderness, Mass - Extremities Exam Extremities Exam: Pedal Edema - Neurological Exam Neurological Exam: Alert, Awake. absent: Oriented x3 Assessment and Plan (1) Abdominal pain Assessment & Plan: SBO/ileus Status: Acute (2) Atrial fibrillation Status: Acute (3) Partial small bowel obstruction Assessment & Plan: clinically improving. Advanc e diet shadia tolerated. Status: Acute (4) Vomiting Assessment & Plan: SBO/ileus Status: Acute (5) Obesity Status: Acute
[2018-04-01] MEDS ORDERED: Potassium Phosphate 21 MMOLE in Sodium Chloride 0.9% 250 ML IV ONE (10:35)
[2018-04-01] MEDS: Lactobacillus Acidophilus 500 MU Cap PO SCH ×2 (10:47→17:53)
[2018-04-01] MEDS: Ammonium Lactate 12% Lotion (225 g) EXT SCH ×2 (10:48→17:52)
[2018-04-01] MEDS: Simethicone 80 mg Chewtab PO SCH ×3 (10:48→17:51)
[2018-04-01] MEDS: Potassium Chloride 20 mEq/15 ml LIQ UD PO SCH ×2 (10:49→17:51)
--- NOTE | 2018-04-01 16:05 | CP.PCM.PN ---
Subjective - Date & Time of Evaluation Date of Evaluation: 04/01/18 Time of Evaluation: 16:01 - Subjective Subjective: Patient states she is refusing wound debridement and CT due to pain when people try to turn her over. She is looking forward to her son bringing soft stringed beans from home. Denies chest pain, abdominal pain, SOB. Objective - Vital Signs/Intake and Output Vital Signs (last 24 hours): Temp Pulse Resp BP Pulse Ox 98.0 F 102 H 20 110/62 97 04/01/18 07:56 04/01/18 04:33 04/01/18 04:33 04/01/18 04:33 04/01/18 04:33 Intake and Output: 04/01/18 04/01/18 06:59 18:59 Intake Total 1000 Balance 1000 - Medications Medications: Current Medications Bumetanide (Bumex) 1 mg PO DAILY [facility] Last Admin: 03/28/18 10:21 Dose: Not Given Dextrose (Dextrose 50% Inj) 0 ml IVP .STAT PRN; Protocol PRN Reason: Hypoglycemia Protocol Dextrose (Glutose 15) 0 gm PO .ONCE PRN; Protocol PRN Reason: Hypoglycemia Protocol Furosemide (Lasix) 40 mg PO DAILY [facility] Last Admin: 03/28/18 10:01 Dose: Not Given Gabapentin (Neurontin) 300 mg PO BID [facility] Last Admin: 04/01/18 10:49 Dose: Not Given Glucagon (Glucagen Diagnostic Kit) 0 mg IM .STAT PRN; Protocol PRN Reason: Hypoglycemia Protocol Piperacillin Sod/Tazobactam (Sod 3.375 gm/ Sodium Chloride) 100 mls @ 200 mls/hr IVPB Q6H [facility]; Protocol Last Admin: 04/01/18 13:36 Dose: 200 mls/hr Potassium Chloride/Dextrose/Sod Cl (Potassium Chl 40 Meq In D5-1/2ns) 1,000 mls @ 60 mls/hr IV .[id number] [facility] Last Admin: 04/01/18 06:23 Dose: 60 mls/hr Dextrose (Dextrose 5% In Water 1000 Ml) 1,000 mls @ 0 mls/hr IV .Q0M PRN; Prot ocol PRN Reason: Hypoglycemia Protocol Lactic Acid (Lac-Hydrin 12% Lotion (225 G)) 0 gm EXT BID [facility] Last Admin: 04/01/18 10:48 Dose: 225 g Lactobacillus Acidophilus (Bacid Acidophilus) 1 cap PO BID [facility] Last Admin: 04/01/18 10:47 Dose: Not Given Metoprolol Tartrate (Lopressor) 50 mg PO BID [facility] Last Admin: 04/01/18 10:48 Dose: Not Given Morphine Sulfate (Morphine) 1 mg IV Q6 PRN PRN Reason: Pain, moderate (4-7) Last Admin: 04/01/18 14:48 Dose: 1 mg Ondansetron HCl (Zofran Inj) 4 mg IVP Q4 PRN PRN Reason: Nausea/Vomiting Last Admin: 03/28/18 05:46 Dose: 4 mg Oxycodone/Acetaminophen (Percocet 5/325 Mg Tab) 1 tab PO Q4H PRN PRN Reason: Pain, moderate (4-7) Stop: 04/04/18 10:51 Pantoprazole Sodium (Protonix Inj) 40 mg IVP Q12H [facility] Last Admin: 04/01/18 04:17 Dose: 40 mg Potassium Chloride (Potassium Chloride Oral Soln) 20 meq PO BID [facility] Last Admin: 04/01/18 10:49 Dose: Not Given Simethicone (Mylicon Chew Tab) 80 mg PO TID [facility] Last Admin: 04/01/18 13:38 Dose: Not Given - Labs Labs: 04/01/18 07:35 04/01/18 07:35 PT 15.9 SECONDS (9.7-12.2) H 03/28/18 15:27 INR 1.5 03/28/18 15:27 APTT 38 SECONDS (21-34) H 03/27/18 17:28 - Constitutional Appears: Well - Head Exam Head Exam: ATRAUMATIC, NORMAL INSPECTION - Eye Exam Eye Exam: EOMI, Normal appearance - Neck Exam Neck Exam: Normal Inspection - Respiratory Exam Respiratory Exam: Clear to Ausculation Bilateral - Cardiovascular Exam Cardiovascular Exam: Irregular Rhythm - GI/Abdominal Exam GI & Abdominal Exam: Soft, Normal Bowel Sounds - Extremities Exam Additional comments: bilateral lymphedema - Psychiatric Exam Psychiatric exam: Normal Affect, Normal Mood - Skin Skin Exam: Warm Assessment and Plan - Assessment and Plan (Free Text) Assessment: 77 y/o bedbound female with Afib with RVR on IVC, stage 4 sacral ulcer, lymphedema admitted for black vomiting x 2 in her senior care on 03/27. Currently stable on med tele. Afib with RVR -currently on tele IRR, HR 70s, can be 130s during meals -continue to monitor on tele -metoprolol tartrate 50 mg BID sacral ulcer stage 4 -pressure care - turn patient, modify bed if possible - but patient has been refusing due to pain -wound cx ulcer: proteus mirabilis, klebsiella, s. aureus -PICC line insert needed -ID recommended to continue with zosyn 3.375 q6h for 6 weeks (final day will be May 09), can continue in senior care. Spoke to Dr. Morales 04/01 concerning her refusing PO meds but could just continue with zosyn. -CT scan of sacrum ordered per surgery recs to r/o osteomyelitis -percocet 5/325 1 tablet prior to wound cleaning PRN for pain but caution with constipation side effect bilateral lymphedema -caution with lasix and bumex due to hypokalemia, being held - patient also refusing PO meds -consider elevation of legs -lac hydrin cream BID per wound care recs -f/u CT venogram ordered by cardiology for venous stasis; patient refused 03/29, still refusing today abdominal pain - resolved, partial SBO vs. gastritis -CT abd/pelvis concerning for possible bowel perforation per radiology. Patient endorsed BM so can be resolving SBO. Patient has not vomited ever since the incident in the senior care. -Surgery recommends advancement to soft foods -Pt refused NGT decompression SBO -Avoid NSAIDS for possible gastritis Hypomagenesemia and hypokalemia -attempt to continue to monitor and replete despite patient noncompliance -accepted 21 mmol Kphos 04/01 -states she could try eating mashed banana or kiwi to increase K intake Patient noncompliance -patient continues to consistently refuse PO medications and interventions for her sacral wound -patient refuses surgical care -consider palliative care, also ordered spiritual care consult who visited once -need discussion with family (sons: Robyn [phone]; Rico [phone]) DVT ppx: resumed heparin 5000mg sq q8h - but patient has been refusing GI ppx: protonix 40 mg IV q12h case discussed with Dr. Lena Taylor, DO PGY-1
--- NOTE | 2018-04-01 16:55 | CP.PCM.PN ---
Subjective - Date & Time of Evaluation Date of Evaluation: 04/01/18 Time of Evaluation: 08:00 - Subjective Subjective: refuses CT sacrum and debridement cont empiric rx Objective - Vital Signs/Intake and Output Vital Signs (last 24 hours): Temp Pulse Resp BP Pulse Ox 98.0 F 122 H 20 110/62 97 04/01/18 07:56 04/01/18 16:32 04/01/18 04:33 04/01/18 04:33 04/01/18 04:33 Intake and Output: 04/01/18 04/01/18 06:59 18:59 Intake Total 1000 Balance 1000 - Medications Medications: Current Medications Bumetanide (Bumex) 1 mg PO DAILY [facility] Last Admin: 03/28/18 10:21 Dose: Not Given Dextrose (Dextrose 50% Inj) 0 ml IVP .STAT PRN; Protocol PRN Reason: Hypoglycemia Protocol Dextrose (Glutose 15) 0 gm PO .ONCE PRN; Protocol PRN Reason: Hypoglycemia Protocol Furosemide (Lasix) 40 mg PO DAILY [facility] Last Admin: 03/28/18 10:01 Dose: Not Given Gabapentin (Neurontin) 300 mg PO BID [facility] Last Admin: 04/01/18 10:49 Dose: Not Given Glucagon (Glucagen Diagnostic Kit) 0 mg IM .STAT PRN; Protocol PRN Reason: Hypoglycemia Protocol Heparin Sodium (Porcine) (Heparin) 5,000 units SC Q8 [facility] Stop: 04/07/18 22:00 Piperacillin Sod/Tazobactam (Sod 3.375 gm/ Sodium Chloride) 100 mls @ 200 mls/hr IVPB Q6H [facility]; Protocol Last Admin: 04/01/18 13:36 Dose: 200 mls/hr Potassium Chloride/Dextrose/Sod Cl (Potassium Chl 40 Meq In D5-1/2ns) 1,000 mls @ 60 mls/hr IV .[id number] [facility] Last Admin: 04/01/18 06:23 Dose: 60 mls/hr Dextrose (Dextrose 5% In Water 1000 Ml) 1,000 mls @ 0 mls/hr IV .Q0M PRN; Protocol PRN Reason: Hypoglycemia Protocol Lactic Acid (Lac-Hydrin 12% Lotion (225 G)) 0 gm EXT BID [facility] Last Admin: 04/01/18 10:48 Dose: 225 g Lactobacillus Acidophilus (Bacid Acidophilus) 1 cap PO BID [facility] Last Admin: 04/01/18 10:47 Dose: Not Given Metoprolol Tartrate (Lopressor) 50 mg PO BID [facility] Last Admin: 04/01/18 10:48 Dose: Not Given Morphine Sulfate (Morphine) 1 mg IV Q6 PRN PRN Reason: Pain, moderate (4-7) Last Admin: 04/01/18 14:48 Dose: 1 mg Ondansetron HCl (Zofran Inj) 4 mg IVP Q4 PRN PRN Reason: Nausea/Vomiting Last Admin: 03/28/18 05:46 Dose: 4 mg Oxycodone/Acetaminophen (Percocet 5/325 Mg Tab) 1 tab PO Q4H PRN PRN Reason: Pain, moderate (4-7) Stop: 04/04/18 10:51 Pantoprazole Sodium (Protonix Inj) 40 mg IVP Q12H [facility] Last Admin: 04/01/18 04:17 Dose: 40 mg Potassium Chloride (Potassium Chloride Oral Soln) 20 meq PO BID [facility] Last Admin: 04/01/18 10:49 Dose: Not Given Simethicone (Mylicon Chew Tab) 80 mg PO TID [facility] Last Admin: 04/01/18 13:38 Dose: Not Given - Labs Labs: 04/01/18 07:35 04/01/18 07:35 PT 15.9 SECONDS (9.7-12.2) H 03/28/18 15:27 INR 1.5 03/28/18 15:27 APTT 38 SECONDS (21-34) H 03/27/18 17:28 - Constitutional Appears: Non-toxic, Chronically Ill - Head Exam Head Exam: NORMOCEPHALIC - Eye Exam Eye Exam: absent: Scleral icterus - ENT Exam ENT Exam: Mucous Membranes Dry - Neck Exam Neck Exam: absent: Lymphadenopathy - Respiratory Exam Respiratory Exam: Decreased Breath Sounds - Cardiovascular Exam Cardiovascular Exam: REGULAR RHYTHM - GI/Abdominal Exam GI & Abdominal Exam: Distended - Rectal Exam Rectal Exam: Deferred Assessment and Plan (1) Abdominal pain Status: Acute (2) Atrial fibrillation with RVR Status: Acute (3) Partial small bowel obstruction Status: Acute (4) Decubitus skin ulcer Status: Acute
[2018-04-02] MEDS: Piperacillin/Tazobact 3.375 GM in Sodium Chloride 100 ML IVPB SCH ×4 (02:03→21:00)
[2018-04-02 07:18] LABS: BASO % 0.7 % (0.0-2.0); EOS # 0.2 K/uL (0.0-0.7); EOS % 3.6 % (0.0-4.0); HEMOGLOBIN 12.4 g/dL (11.0-16.0); LYMPH # 0.7 K/uL (1.0-4.3); LYMPH % 13.6 % (20.0-40.0); MEAN CELL VOLUME 88.4 fL (81.0-99.0); MEAN CORPUSCULAR HEMOGLOBIN 30.1 pg (27.0-31.0); MEAN CORPUSCULAR HGB CONC 34.1 g/dL (33.0-37.0); MEAN PLATELET VOLUME 7.9 fL (7.2-11.7); MONO # 0.6 K/uL (0.0-0.8); MONO % 10.7 % (0.0-10.0); NEUT # 3.7 K/uL (1.8-7.0); NEUT % 71.4 % (50.0-75.0); RBC 4.11 Mil/uL (3.80-5.20); RED CELL DISTRIBUTION WIDTH 16.9 % (11.5-14.5); WHITE BLOOD COUNT 5.2 K/uL (4.8-10.8)
--- NOTE | 2018-04-02 07:55 | CARD ---
APPROVED REPORT Date of service: 03/28/2018 EKG Measurement Heart [id number] <Conclusion> Atrial fibrillation Low voltage QRS Possible Anterolateral infarct, age undetermined Abnormal ECG
--- NOTE | 2018-04-02 08:07 | CP.PCM.PN ---
Subjective - Date & Time of Evaluation Date of Evaluation: 04/02/18 Time of Evaluation: 08:25 - Subjective Subjective: Matthew Mendes, PGY-[address] Bryant Patient seen and evaluated at bedside. Patient currently eating breakfast. Patient states that multiple people have been in her room but no one has been able to help her. Patient has refused CT venogram multiple times, and patient states no one has come to get her for the study. Denies chest pain, palpitations, shortness of breath but reports leg pain. Objective - Vital Signs/Intake and Output Vital Signs (last 24 hours): Temp Pulse Resp BP Pulse Ox 97.8 F 86 20 153/78 H 95 04/01/18 23:40 04/02/18 07:30 04/01/18 23:40 04/01/18 23:40 04/01/18 23:40 Intake and Output: 04/02/18 04/02/18 06:59 18:59 Intake Total 1160 Balance 1160 - Medications Medications: Current Medications Bumetanide (Bumex) 1 mg PO DAILY [facility] Last Admin: 03/28/18 10:21 Dose: Not Given Dextrose (Dextrose 50% Inj) 0 ml IVP .STAT PRN; Protocol PRN Reason: Hypoglycemia Protocol Last Admin: 04/02/18 07:55 Dose: 50 ml Dextrose (Glutose 15) 0 gm PO .ONCE PRN; Protocol PRN Reason: Hypoglycemia Protocol Furosemide (Lasix) 40 mg PO DAILY [facility] Last Admin: 03/28/18 10:01 Dose: Not Given Gabapentin (Neurontin) 300 mg PO BID [facility] Last Admin: 04/01/18 17:51 Dose: Not Given Glucagon (Glucagen Diagnostic Kit) 0 mg IM .STAT PRN; Protocol PRN Reason: Hypoglycemia Protocol Heparin Sodium (Porcine) (Heparin) 5,000 units SC Q8 [facility] Stop: 04/07/18 22:00 Last Admin: 04/02/18 05:02 Dose: Not Given Piperacillin Sod/Tazobactam (Sod 3.375 gm/ Sodium Chloride) 100 mls @ 200 mls/hr IVPB Q6H [facility]; Protocol Last Admin: 04/02/18 02:03 Dose: 200 mls/hr Potassium Chloride/Dextrose/Sod Cl (Potassium Chl 40 Meq In D5-1/2ns) 1,000 mls @ 60 mls/hr IV .[id number] [facility] Last Admin: 04/01/18 06:23 Dose: 60 mls/hr Dextrose (Dextrose 5% In Water 1000 Ml) 1,000 mls @ 0 mls/hr IV .Q0M PRN; Protocol PRN Reason: Hypoglycemia Protocol Lactic Acid (Lac-Hydrin 12% Lotion (225 G)) 0 gm EXT BID [facility] Last Admin: 04/01/18 17:52 Dose: 225 g Lactobacillus Acidophilus (Bacid Acidophilus) 1 cap PO BID [facility] Last Admin: 04/01/18 17:53 Dose: Not Given Metoprolol Tartrate (Lopressor) 50 mg PO BID [facility] Last Admin: 04/01/18 17:52 Dose: Not Given Morphine Sulfate (Morphine) 1 mg IV Q6 PRN PRN Reason: Pain, moderate (4-7) Last Admin: 04/02/18 05:30 Dose: 1 mg Ondansetron HCl (Zofran Inj) 4 mg IVP Q4 PRN PRN Reason: Nausea/Vomiting Last Admin: 03/28/18 05:46 Dose: 4 mg Oxycodone/Acetaminophen (Percocet 5/325 Mg Tab) 1 tab PO Q4H PRN PRN Reason: Pain, moderate (4-7) Stop: 04/04/18 10:51 Pantoprazole Sodium (Protonix Ec Tab) 40 mg PO BID [facility] Potassium Chloride (Potassium Chloride Oral Soln) 20 meq PO BID [facility] Last Admin: 04/01/18 17:51 Dose: Not Given Simethicone (Mylicon Chew Tab) 80 mg PO TID [facility] Last Admin: 04/01/18 17:51 Dose: Not Given - Labs Labs: 04/02/18 06:58 04/01/18 07:35 PT 15.9 SECONDS (9.7-12.2) H 03/28/18 15:27 INR 1.5 03/28/18 15:27 APTT 38 SECONDS (21-34) H 03/27/18 17:28 - Additional Findings Additional findings: - Constitutional Appears: Well - Additional Findings Additional findings: - Constitutional Appears: Well, Non-toxic, No Acute Distress - Head Exam Head Exam: ATRAUMATIC, NORMOCEPHALIC - Eye Exam Eye Exam: EOMI, Normal appearance - ENT Exam ENT Exam: Mucous Membranes Moist - Respiratory Exam Respiratory Exam: Decreased Breath Sounds, Rales (RLL), NORMAL BREATHING PATTERN. absent: Chest Wall Tenderness, Clear to Auscultation Bilateral (RLL) - Cardiovascular Exam Cardiovascular Exam: Irregular Rhythm, +S1, +S2 - GI/Abdominal Exam GI & Abdominal Exam: Soft. absent: Distended - Extremities Exam Extremities exam: Positive for: pedal edema (4+ severe b/l LE edema with venous stasis changes, severe TTP). Negative for: normal inspection - Back Exam Back exam: absent: CVA tenderness (L), CVA tenderness (R) - Neurological Exam Neurological exam: Abnormal Gait (bedbound), Alert, Oriented x3 Assessment and Plan - Assessment and Plan (Free Text) Assessment: Assessment: Ms. Giron is a 77 year old bed-bound female w/ PMHx of multiple myocardial infarctions, A. fib. w/ IVC filter in place, LE lymphedema, sacral ulcer, breast cancer w/ lumpectomy, who is being evaluated for severe venous stasis and deconditioning in setting of A fib with IVC filter. Refused CT venogram on multiple attempts. Plan: Afib w/ RVR, medication noncompliance - sustained A fib today, asymptomatic - C/w home medications: metoprolol tartrate 50 mg BID, Lasix 40 mg daily, Bumex 1mg daily - Echo reports EF 59%, mild LVH, RV systolic function mildly reduced, RA severely dilated, severe TR with severe pulm HTN - Patient refused CT venogram. Spoke with patient again regarding benefits of venogram regarding her care and etiology of her deconditioning and severe venous stasis changes. - Ongoing Discussion with patient regarding noncompliance - will likely sign off at this time - pending endocrinology workup Case reviewed and plan discussed with Dr. Bryant. Future recommendations per Dr. Bryant. Matthew Mendes, PGY-1
[2018-04-02 08:11] LABS: ALB/GLOB RATIO 0.7 (1.0-2.1); ALBUMIN 1.9 g/dL (3.5-5.0); ALT/SGPT 25 U/L (9-52); AST/SGOT 29 U/L (14-36); BLOOD UREA NITROGEN 8 mg/dL (7-17); CALCIUM 7.5 mg/dl (8.6-10.4); GFR NON-AFRICAN AMERICAN > 60
[2018-04-02] MEDS: Ammonium Lactate 12% Lotion (225 g) EXT SCH ×2 (10:11→19:20)
--- NOTE | 2018-04-02 10:31 | CP.PCM.PN ---
Addendum entered and electronically signed by Saira Taylor DO 04/02/18 13:45: Upon review of records, patient's asymptomatic hypoglycemia can be an issue if she is to be discharged soon without further work up. Dr. Mcarthur, my attending, discussed this case with Dr. Do, endocrinology, who will be seeing the patient this afternoon. Possible endocrine disorder although no evidence on imaging so far from my knowledge. Will follow up with Dr. Do's recommendations tonight. Patient not ready for discharge. Original Note: <Saira Taylor - Last Filed: 04/02/18 10:28> Subjective - Date & Time of Evaluation Date of Evaluation: 04/02/18 Time of Evaluation: 10:31 - Subjective Subjective: Patient seen and examined at bedside. She was watching YouTube videos on Wound Vac as is interested in the type that does not cause pain. She would like to speak to wound care nurse again. Objective - Vital Signs/Intake and Output Vital Signs (last 24 hours): Temp Pulse Resp BP Pulse Ox 98.2 F 86 20 123/74 96 04/02/18 07:00 04/02/18 07:30 04/02/18 07:00 04/02/18 07:00 04/02/18 07:00 Intake and Output: 04/02/18 04/02/18 06:59 18:59 Intake Total 1160 Balance 1160 - Medications Medications: Current Medications Bumetanide (Bumex) 1 mg PO DAILY [facility] Last Admin: 03/28/18 10:21 Dose: Not Given Dextrose (Dextrose 50% Inj) 0 ml IVP .STAT PRN; Protocol PRN Reason: Hypoglycemia Protocol Last Admin: 04/02/18 07:55 Dose: 50 ml Dextrose (Glutose 15) 0 gm PO .ONCE PRN; Protocol PRN Reason: Hypoglycemia Protocol Furosemide (Lasix) 40 mg PO DAILY [facility] Last Admin: 03/28/18 10:01 Dose: Not Given Gabapentin (Neurontin) 300 mg PO BID [facility] Last Admin: 04/01/18 17:51 Dose: Not Given Glucagon (Glucagen Diagnostic Kit) 0 mg IM .STAT PRN; Protocol PRN Reason: Hypoglycemia Protocol Heparin Sodium (Porcine) (Heparin) 5,000 units SC Q8 [facility] Stop: 04/07/18 22:00 Last Admin: 04/02/18 05:02 Dose: Not Given Piperacillin Sod/Tazobactam (Sod 3.375 gm/ Sodium Chloride) 100 mls @ 200 mls/hr IVPB Q6H [facility]; Protocol Last Admin: 04/02/18 08:18 Dose: 200 mls/hr Potassium Chloride/Dextrose/Sod Cl (Potassium Chl 40 Meq In D5-1/2ns) 1,000 mls @ 60 mls/hr IV .[id number] [facility] Last Admin: 04/01/18 06:23 Dose: 60 mls/hr Dextrose (Dextrose 5% In Water 1000 Ml) 1,000 mls @ 0 mls/hr IV .Q0M PRN; Protocol PRN Reason: Hypoglycemia Protocol Lactic Acid (Lac-Hydrin 12% Lotion (225 G)) 0 gm EXT BID [facility] Last Admin: 04/02/18 10:11 Dose: 225 g Lactobacillus Acidophilus (Bacid Acidophilus) 1 cap PO BID [facility] Last Admin: 04/01/18 17:53 Dose: Not Given Metoprolol Tartrate (Lopressor) 50 mg PO BID [facility] Last Admin: 04/01/18 17:52 Dose: Not Given Morphine Sulfate (Morphine) 1 mg IV Q6 PRN PRN Reason: Pain, moderate (4-7) Last Admin: 04/02/18 05:30 Dose: 1 mg Ondansetron HCl (Zofran Inj) 4 mg IVP Q4 PRN PRN Reason: Nausea/Vomiting Last Admin: 03/28/18 05:46 Dose: 4 mg Oxycodone/Acetaminophen (Percocet 5/325 Mg Tab) 1 tab PO Q4H PRN PRN Reason: Pain, moderate (4-7) Stop: 04/04/18 10:51 Pantoprazole Sodium (Protonix Ec Tab) 40 mg PO BID [facility] Pantoprazole Sodium (Protonix Inj) 40 mg IVP Q12H [facility] Stop: 04/08/18 10:30 Potassium Chloride (Potassium Chloride Oral Soln) 20 meq PO BID [facility] Last Admin: 04/01/18 17:51 Dose: Not Given Simethicone (Mylicon Chew Tab) 80 mg PO TID [facility] Last Admin: 04/01/18 17:51 Dose: Not Given - Labs Labs: 04/02/18 06:58 04/02/18 06:58 PT 15.9 SECONDS (9.7-12.2) H 03/28/18 15:27 INR 1.5 03/28/18 15:27 APTT 38 SECONDS (21-34) H 03/27/18 17:28 - Constitutional Appears: Well, Non-toxic - Head Exam Head Exam: ATRAUMATIC, NORMAL INSPECTION - Eye Exam Eye Exam: EOMI, Normal appearance - Respiratory Exam Respiratory Exam: Clear to Ausculation Bilateral, NORMAL BREATHING PATTERN - Cardiovascular Exam Cardiovascular Exam: Irregular Rhythm - GI/Abdominal Exam GI & Abdominal Exam: Soft, Normal Bowel Sounds - Extremities Exam Additional comments: bilateral lower extremity lymphedema - Neurological Exam Neurological Exam: Alert, Awake, Oriented x3 - Psychiatric Exam Psychiatric exam: Normal Affect, Normal Mood Assessment and Plan - Assessment and Plan (Free Text) Assessment: 77 y/o bedbound female with Afib with RVR on IVC, stage 4 sacral ulcer, lymphedema admitted for black vomiting x 2 in her skilled nursing on 03/27. Currently stable on med tele. Afib with RVR -currently on tele IRR, HR 70s, can be 130s during meals -continue to monitor on tele -metoprolol tartrate 50 mg BID sacral ulcer stage 4 -pressure care - turn patient, modify bed if possible - but patient has been refusing due to pain -wound cx ulcer: proteus mirabilis, klebsiella, s. aureus -PICC line inserted -ID recommended to continue with zosyn 3.375 q6h for 6 weeks (final day will be May 09), can continue in skilled nursing. Spoke to Dr. Morales 04/01 concerning her refusing PO meds but could just continue with zosyn. -CT scan of sacrum ordered per surgery recs to r/o osteomyelitis -percocet 5/325 1 tablet prior to wound cleaning PRN for pain but caution with constipation side effect bilateral lymphedema -caution with lasix and bumex due to hypokalemia, being held - patient also refusing PO meds -consider elevation of legs -lac hydrin cream BID per wound care recs -f/u CT venogram ordered by cardiology for venous stasis; patient refused 03/29, still refusing today abdominal pain - resolved, partial SBO vs. gastritis -CT abd/pelvis concerning for possible bowel perforation per radiology. Patient endorsed BM so can be resolving SBO. Patient has not vomited ever since the incident in the skilled nursing. -Surgery recommends advancement to soft foods -Pt refused NGT decompression SBO -Avoid NSAIDS for possible gastritis Hypomagenesemia and hypokalemia -attempt to continue to monitor and replete despite patient noncompliance -accepted 21 mmol Kphos 04/01 -states she could try eating mashed banana or kiwi to increase K intake Patient noncompliance -patient continues to consistently refuse PO medications and interventions for her sacral wound -wound care reconsulted for wound vac education as pt open to the idea -patient refuses surgical care -consider palliative care, also ordered spiritual care consult who visited once -need discussion with family (sons: Robyn [phone]; Rico [phone]) DVT ppx: resumed heparin 5000mg sq q8h - but patient has been refusing GI ppx: protonix 40 mg IV q12h dispo: discharge to skilled nursing and continue with zosyn dose there, consider installing wound vac there as well after wound vac education if patient agrees case discussed with Dr. Blue Taylor, DO PGY-1 <Chelsey Mcarthur - Last Filed: 04/02/18 17:17> Objective - Vital Signs/Intake and Output Vital Signs (last 24 hours): Temp Pulse Resp BP Pulse Ox 99.6 F 86 20 117/72 96 04/02/18 15:00 04/02/18 15:00 04/02/18 15:00 04/02/18 15:00 04/02/18 15:00 Intake and Output: 04/02/18 04/02/18 06:59 18:59 Intake Total 1160 480 Balance 1160 480 - Medications Medications: Current Medications Bumetanide (Bumex) 1 mg PO DAILY [facility] Last Admin: 03/28/18 10:21 Dose: Not Given Dextrose (Dextrose 50% Inj) 0 ml IVP .STAT PRN; Protocol PRN Reason: Hypoglycemia Protocol Last Admin: 04/02/18 07:55 Dose: 50 ml Dextrose (Glutose 15) 0 gm PO .ONCE PRN; Protocol PRN Reason: Hypoglycemia Protocol Furosemide (Lasix) 40 mg PO DAILY [facility] Last Admin: 03/28/18 10:01 Dose: Not Given Gabapentin (Neurontin) 300 mg PO BID [facility] Last Admin: 04/02/18 10:54 Dose: Not Given Glucagon (Glucagen Diagnostic Kit) 0 mg IM .STAT PRN; Protocol PRN Reason: Hypoglycemia Protocol Heparin Sodium (Porcine) (Heparin) 5,000 units SC Q8 [facility] Stop: 04/07/18 22:00 Last Admin: 04/02/18 13:11 Dose: Not Given Piperacillin Sod/Tazobactam (Sod 3.375 gm/ Sodium Chloride) 100 mls @ 200 mls/hr IVPB Q6H [facility]; Protocol Last Admin: 04/02/18 13:17 Dose: 200 mls/hr Potassium Chloride/Dextrose/Sod Cl (Potassium Chl 40 Meq In D5-1/2ns) 1,000 mls @ 60 mls/hr IV .[id number] [facility] Last Admin: 04/01/18 06:23 Dose: 60 mls/hr Dextrose (Dextrose 5% In Water 1000 Ml) 1,000 mls @ 0 mls/hr IV .Q0M PRN; Protocol PRN Reason: Hypoglycemia Protocol Lactic Acid (Lac-Hydrin 12% Lotion (225 G)) 0 gm EXT BID [facility] Last Admin: 04/02/18 10:11 Dose: 225 g Lactobacillus Acidophilus (Bacid Acidophilus) 1 cap PO BID [facility] Last Admin: 04/02/18 10:54 Dose: Not Given Metoprolol Tartrate (Lopressor) 50 mg PO BID [facility] Last Admin: 04/02/18 10:54 Dose: Not Given Morphine Sulfate (Morphine) 1 mg IV Q6 PRN PRN Reason: Pain, moderate (4-7) Last Admin: 04/02/18 05:30 Dose: 1 mg Ondansetron HCl (Zofran Inj) 4 mg IVP Q4 PRN PRN Reason: Nausea/Vomiting Last Admin: 03/28/18 05:46 Dose: 4 mg Pantoprazole Sodium (Protonix Ec Tab) 40 mg PO BID [facility] Last Admin: 04/02/18 10:55 Dose: Not Given Pantoprazole Sodium (Protonix Inj) 40 mg IVP Q12 [facility] Last Admin: 04/02/18 10:57 Dose: 40 mg Simethicone (Mylicon Chew Tab) 80 mg PO TID [facility] Last Admin: 04/02/18 13:11 Dose: Not Given - Labs Labs: 04/02/18 06:58 04/02/18 06:58 PT 15.9 SECONDS (9.7-12.2) H 03/28/18 15:27 INR 1.5 03/28/18 15:27 APTT 38 SECONDS (21-34) H 03/27/18 17:28 Attending/Attestation - Attestation I have personally seen and examined this patient.: Yes I have fully participated in the care of the patient.: Yes I have reviewed all pertinent clinical information, including history, physical exam and plan: Yes Notes (Text): Seen and examined by me. Patient has no complain,lying on bed,obese with sacral ulcer and chronic stasis dermatitis s/p picc line,Pt will be discharged on 6 weeks of IV antibiotics Has episodes of severe hypoglycemia . Discussed with Dr Do . Patient need e ndocrine work up labs ordered follow DR Do recommendation d/w resident
[2018-04-02] MEDS: Lactobacillus Acidophilus 500 MU Cap PO SCH ×2 (10:54→19:21)
[2018-04-02] MEDS: Simethicone 80 mg Chewtab PO SCH ×3 (10:54→19:21)
[2018-04-02] MEDS: Potassium Chloride 20 mEq/15 ml LIQ UD PO SCH (10:54)
[2018-04-02] MEDS: Pantoprazole 40 mg EC Tab PO SCH ×2 (10:55→19:22)
[2018-04-02] MEDS ORDERED: Potassium Chloride 20 mEq/15 ml LIQ UD PO ONE (11:44)
[2018-04-02] MEDS: Potassium Chl 40 mEq in D5-1/2 1,000 ML IV SCH (16:00)
--- NOTE | 2018-04-02 16:03 | CP.PCM.PN ---
Subjective - Date & Time of Evaluation Date of Evaluation: 04/02/18 Time of Evaluation: 16:01 - Subjective Subjective: No new c/o. Tolerating diet and moving her bowels. No bleeding. Objective - Vital Signs/Intake and Output Vital Signs (last 24 hours): Temp Pulse Resp BP Pulse Ox 98.2 F 98 H 20 123/74 96 04/02/18 07:00 04/02/18 12:00 04/02/18 07:00 04/02/18 07:00 04/02/18 07:00 Intake and Output: 04/02/18 04/02/18 06:59 18:59 Intake Total 1160 Balance 1160 - Medications Medications: Current Medications Bumetanide (Bumex) 1 mg PO DAILY [facility] Last Admin: 03/28/18 10:21 Dose: Not Given Dextrose (Dextrose 50% Inj) 0 ml IVP .STAT PRN; Protocol PRN Reason: Hypoglycemia Protocol Last Admin: 04/02/18 07:55 Dose: 50 ml Dextrose (Glutose 15) 0 gm PO .ONCE PRN; Protocol PRN Reason: Hypoglycemia Protocol Furosemide (Lasix) 40 mg PO DAILY [facility] Last Admin: 03/28/18 10:01 Dose: Not Given Gabapentin (Neurontin) 300 mg PO BID [facility] Last Admin: 04/02/18 10:54 Dose: Not Given Glucagon (Glucagen Diagnostic Kit) 0 mg IM .STAT PRN; Protocol PRN Reason: Hypoglycemia Protocol Heparin Sodium (Porcine) (Heparin) 5,000 units SC Q8 [facility] Stop: 04/07/18 22:00 Last Admin: 04/02/18 13:11 Dose: Not Given Piperacillin Sod/Tazobactam (Sod 3.375 gm/ Sodium Chloride) 100 mls @ 200 mls/hr IVPB Q6H [facility]; Protocol Last Admin: 04/02/18 13:17 Dose: 200 mls/hr Potassium Chloride/Dextrose/Sod Cl (Potassium Chl 40 Meq In D5-1/2ns) 1,000 mls @ 60 mls/hr IV .[id number] [facility] Last Admin: 04/01/18 06:23 Dose: 60 mls/hr Dextrose (Dextrose 5% In Water 1000 Ml) 1,000 mls @ 0 mls/hr IV .Q0M PRN; Protocol PRN Reason: Hypoglycemia Protocol Lactic Acid (Lac-Hydrin 12% Lotion (225 G)) 0 gm EXT BID [facility] Last Admin: 04/02/18 10:11 Dose: 225 g Lactobacillus Acidophilus (Bacid Acidophilus) 1 cap PO BID [facility] Last Admin: 04/02/18 10:54 Dose: Not Given Metoprolol Tartrate (Lopressor) 50 mg PO BID [facility] Last Admin: 04/02/18 10:54 Dose: Not Given Morphine Sulfate (Morphine) 1 mg IV Q6 PRN PRN Reason: Pain, moderate (4-7) Last Admin: 04/02/18 05:30 Dose: 1 mg Ondansetron HCl (Zofran Inj) 4 mg IVP Q4 PRN PRN Reason: Nausea/Vomiting Last Admin: 03/28/18 05:46 Dose: 4 mg Pantoprazole Sodium (Protonix Ec Tab) 40 mg PO BID [facility] Last Admin: 04/02/18 10:55 Dose: Not Given Pantoprazole Sodium (Protonix Inj) 40 mg IVP Q12 [facility] Last Admin: 04/02/18 10:57 Dose: 40 mg Simethicone (Mylicon Chew Tab) 80 mg PO TID [facility] Last Admin: 04/02/18 13:11 Dose: Not Given - Labs Labs: 04/02/18 06:58 04/02/18 06:58 PT 15.9 SECONDS (9.7-12.2) H 03/28/18 15:27 INR 1.5 03/28/18 15:27 APTT 38 SECONDS (21-34) H 03/27/18 17:28 - Constitutional Appears: No Acute Distress - Respiratory Exam Respiratory Exam: NORMAL BREATHING PATTERN - Cardiovascular Exam Cardiovascular Exam: REGULAR RHYTHM, +S1 - GI/Abdominal Exam GI & Abdominal Exam: Soft, Normal Bowel Sounds. absent: Tenderness, Mass, R ebound Assessment and Plan (1) Partial small bowel obstruction Assessment & Plan: No further evidence of obstruction. Tolerating diet and moving bowels. No further work up at this time. Recall as needed. Thank you. Status: Resolved (2) Nausea and vomiting Status: Resolved
[2018-04-03] MEDS: Piperacillin/Tazobact 3.375 GM in Sodium Chloride 100 ML IVPB SCH ×4 (01:26→19:48)
[2018-04-03] MEDS: Potassium Chl 40 mEq in D5-1/2 1,000 ML IV SCH (02:47)
--- NOTE | 2018-04-03 07:12 | CON ---
DATE: ENDOCRINOLOGY CONSULT LOCATION: Room 665. HISTORY OF PRESENT ILLNESS: This is a 77-year-old female presenting here with diffuse abdominal pain and coffee-ground emesis, possibly with small bowel obstruction and is now being referred for endocrine evaluation because of persistent episodes of symptomatic hypoglycemia with an underlying adrenal lesion as noted thereof. PAST MEDICAL HISTORY: As mentioned above. History of hypertension and dyslipidemia. History of chronic atrial fibrillation, on oral anticoagulation therapy. History of coronary artery disease with multiple episodes of myocardial infarction. The patient has been actually bed bound for the last year or so with previous history of CVA, also significant history of breast carcinoma with subsequent endometrial carcinoma and underwent a right mastectomy with subsequent total abdominal hysterectomy. She also had multiple falls in the last few months and is currently bed bound as noted. She has also had significant weight loss with anorexia and under nutrition. FAMILY HISTORY: Positive for hypertension and heart disease. 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 No known substance use and has a supportive family as noted. PHYSICAL EXAMINATION: GENERAL: This is an average built female, in no apparent distress. VITAL SIGNS: Blood pressure 140/80, pulse of 70 beats per minute and regular, temperature 98, respirations 20. HEENT: Head is normocephalic. Eyes anicteric with pink conjunctivae. Funduscopy not possible at this time. Ears, nose and throat otherwise normal. NECK: Supple. Thyroid gland is normal size. No carotid bruits or any cervical adenopathy. CARDIOPULMONARY: Adynamic precordium. S1 and S2 rapid and regular. LUNGS: Show scattered rhonchi. ABDOMEN: Flat and soft with positive bowel sounds. EXTREMITIES: There is +2 bipedal edema. Pulses are +2 bilaterally. She has sacral decubitus ulcers as noted. LABORATORY DATA: Chemistry showed a BUN of 8, sodium 141, potassium 3.4, chloride 100, CO2 of 26, glucose 62 and creatinine 0.5. Her glucose levels have been extremely fluctuating and have ranged from 24 to 48 and 57 mg/dL. Albumin level is 1.9. ASSESSMENT: This is a 77-year-old female with symptomatic hypoglycemia and associated neuroglycopenic and hyperadrenergic manifestations of the same and most likely some multifactorial etiology, the more significant of which would be a nutritional component, also with under nutrition and suboptimal meal portions as noted. However, we have to exclude any underlying hormonal etiology such as hypoadrenalism causing significant bouts of symptomatic hypoglycemia as noted. Although quite unlikely, with advanced age, we also have to exclude any insulin excess syndrome such as insulinomas or paragangliomas as noted. PLAN OF MANAGEMENT: We will obtain a comprehensive hormonal profile with serum cortisone, ACTH level, and also serum C-peptide and serum insulin level with a concomitant A1c value as ordered. We continued dextrose infusion and D50 bolus injections as given. We will obtain serial chemistries and supplement accordingly as needed. We will follow. Aileen Do MD
[2018-04-03 08:00] LABS: BASO # 0.1 K/uL (0.0-0.2); BASO % 1.3 % (0.0-2.0); EOS # 0.2 K/uL (0.0-0.7); EOS % 3.8 % (0.0-4.0); HEMOGLOBIN 12.2 g/dL (11.0-16.0); LYMPH % 17.9 % (20.0-40.0); MEAN CELL VOLUME 87.9 fL (81.0-99.0); MEAN CORPUSCULAR HGB CONC 34.1 g/dL (33.0-37.0); MEAN PLATELET VOLUME 8.1 fL (7.2-11.7); MONO # 0.6 K/uL (0.0-0.8); NEUT # 3.6 K/uL (1.8-7.0); NRBC % 0.3 % (0.0-2.0); RBC 4.06 Mil/uL (3.80-5.20); RED CELL DISTRIBUTION WIDTH 16.9 % (11.5-14.5); WHITE BLOOD COUNT 5.4 K/uL (4.8-10.8)
[2018-04-03 08:36] LABS: ALB/GLOB RATIO 0.7 (1.0-2.1); ALBUMIN 1.9 g/dL (3.5-5.0); ALT/SGPT 24 U/L (9-52); AST/SGOT 36 U/L (14-36); BLOOD UREA NITROGEN 8 mg/dL (7-17); CALCIUM 7.5 mg/dl (8.6-10.4); GFR NON-AFRICAN AMERICAN > 60
[2018-04-03] MEDS ORDERED: Potassium Phosphate 20 MMOLE in Sodium Chloride 0.9% 250 ML IV ONE (09:00)
[2018-04-03] MEDS: Simethicone 80 mg Chewtab PO SCH ×3 (11:24→19:18)
[2018-04-03] MEDS: Lactobacillus Acidophilus 500 MU Cap PO SCH ×2 (11:24→19:17)
[2018-04-03] MEDS: Pantoprazole 40 mg EC Tab PO SCH (11:25)
[2018-04-03] MEDS: Ammonium Lactate 12% Lotion (225 g) EXT SCH ×2 (11:43→19:17)
--- NOTE | 2018-04-03 13:12 | CP.PCM.PN ---
Subjective - Date & Time of Evaluation Date of Evaluation: 04/03/18 Time of Evaluation: 13:08 - Subjective Subjective: Patient complaining of having "artificial food" here in the hospital. Otherwise no chest pain, SOB, abdominal pain. Objective - Vital Signs/Intake and Output Vital Signs (last 24 hours): Temp Pulse Resp BP Pulse Ox 99.6 F 79 20 108/70 96 04/02/18 15:00 04/03/18 07:19 04/02/18 15:00 04/03/18 01:20 04/02/18 15:00 Intake and Output: 04/03/18 04/03/18 06:59 18:59 Intake Total 200 Balance 200 - Medications Medications: Current Medications Bumetanide (Bumex) 1 mg PO DAILY [facility] Last Admin: 03/28/18 10:21 Dose: Not Given Dextrose (Dextrose 50% Inj) 0 ml IVP .STAT PRN; Protocol PRN Reason: Hypoglycemia Protocol Last Admin: 04/02/18 07:55 Dose: 50 ml Dextrose (Glutose 15) 0 gm PO .ONCE PRN; Protocol PRN Reason: Hypoglycemia Protocol Furosemide (Lasix) 40 mg PO DAILY [facility] Last Admin: 03/28/18 10:01 Dose: Not Given Gabapentin (Neurontin) 300 mg PO BID [facility] Last Admin: 04/03/18 11:25 Dose: Not Given Glucagon (Glucagen Diagnostic Kit) 0 mg IM .STAT PRN; Protocol PRN Reason: Hypoglycemia Protocol Heparin Sodium (Porcine) (Heparin) 5,000 units SC Q8 [facility] Stop: 04/07/18 22:00 Last Admin: 04/03/18 05:25 Dose: Not Given Piperacillin Sod/Tazobactam (Sod 3.375 gm/ Sodium Chloride) 100 mls @ 200 mls/hr IVPB Q6H [facility]; Protocol Last Admin: 04/03/18 08:59 Dose: 200 mls/hr Dextrose (Dextrose 5% In Water 1000 Ml) 1,000 mls @ 0 mls/hr IV .Q0M PRN; Protocol PRN Reason: Hypoglycemia Protocol Lactic Acid (Lac-Hydrin 12% Lotion (225 G)) 0 gm EXT BID [facility] Last Admin: 04/03/18 11:43 Dose: 1 applic Lactobacillus Acidophilus (Bacid Acidophilus) 1 cap PO BID [facility] Last Admin: 04/03/18 11:24 Dose: Not Given Metoprolol Tartrate (Lopressor) 25 mg PO BID [facility] Stop: 04/09/18 18:00 Morphine Sulfate (Morphine) 1 mg IV Q6 PRN PRN Reason: Pain, moderate (4-7) Last Admin: 04/03/18 08:59 Dose: 1 mg Ondansetron HCl (Zofran Inj) 4 mg IVP Q4 PRN PRN Reason: Nausea/Vomiting Last Admin: 03/28/18 05:46 Dose: 4 mg Pantoprazole Sodium (Protonix Inj) 40 mg IVP Q12 [facility] Last Admin: 04/03/18 11:42 Dose: 40 mg Simethicone (Mylicon Chew Tab) 80 mg PO TID [facility] Last Admin: 04/03/18 11:24 Dose: Not Given - Labs Labs: 04/03/18 07:47 04/03/18 07:47 PT 15.9 SECONDS (9.7-12.2) H 03/28/18 15:27 INR 1.5 03/28/18 15:27 APTT 38 SECONDS (21-34) H 03/27/18 17:28 - Head Exam Head Exam: ATRAUMATIC, NORMAL INSPECTION - Neck Exam Neck Exam: Normal Inspection - Respiratory Exam Respiratory Exam: Clear to Ausculation Bilateral, NORMAL BREATHING PATTERN - Cardiovascular Exam Cardiovascular Exam: REGULAR RHYTHM - GI/Abdominal Exam GI & Abdominal Exam: Soft, Normal Bowel Sounds - Extremities Exam Additional comments: bilateral lymphedema, right anterior tibia with dark protruding plaques - Neurological Exam Neurological Exam: Alert, Awake, Oriented x3 - Psychiatric Exam Psychiatric exam: Agitated Assessment and Plan - Assessment and Plan (Free Text) Assessment: 77 y/o bedbound female with Afib with RVR on IVC, stage 4 sacral ulcer, lymphedema admitted for black vomiting x 2 in her half-way on 03/27. Currently stable on med tele. Hypoglycemia -Patient has been having low blood sugar throughout the day, as low as the 20s during this hospitalization. Endocrine (Dr. oD) was consulted for the first time 04/02. Recommends workup. AM cortisone wnl. A1c 5.2% wnl. -pending: ACTH, secum c-peptide, serum insulin level -patient will need accuchecks when she returns to half-way -BB can mask hypoglycemic sx; lowered dose from metoprolol 50 mg BID to 25. Afib with RVR -currently on tele IRR, HR 70s, can be 130s during meals -continue to monitor on tele -metoprolol tartrate 50 mg BID sacral ulcer stage 4 -pressure care - turn patient, modify bed if possible - but patient has been refusing due to pain -wound cx ulcer: proteus mirabilis, klebsiella, s. aureus -PICC line inserted -patient has been refusing wound vac here in the hospital but is considering it in the half-way. She does not like to be turned due to pain so she will be turned once if wound vac just installed in the half-way, not also here in the hospital. -ID recommended to continue with zosyn 3.375 q6h for 6 weeks (final day will be May 09), can continue in half-way. Spoke to Dr. Morales 04/01 concerning her refusing PO meds but could just continue with zosyn. -CT scan of sacrum ordered per surgery recs to r/o osteomyelitis -percocet 5/325 1 tablet prior to wound cleaning PRN for pain but caution with constipation side effect bilateral lymphedema -caution with lasix and bumex due to hypokalemia, being held - patient also r efusing PO meds -consider elevation of legs -lac hydrin cream BID per wound care recs -f/u CT venogram ordered by cardiology for venous stasis; patient refused 03/29, still refusing today abdominal pain - resolved, partial SBO vs. gastritis -CT abd/pelvis concerning for possible bowel perforation per radiology. Patient endorsed BM so can be resolving SBO. Patient has not vomited ever since the in cident in the half-way. -Surgery recommends advancement to soft foods -Pt refused NGT decompression SBO -Avoid NSAIDS for possible gastritis Hypomagenesemia and hypokalemia -attempt to continue to monitor and replete despite patient noncompliance -has in the past accepted 21 mmol Kphos 04/01 -states she could try eating mashed banana or kiwi to increase K intake -soft regular diet in order to increase PO intake; patient states she has poor dentition Patient noncompliance -patient continues to consistently refuse PO medications and interventions for her sacral wound -wound care reconsulted for wound vac education as pt open to the idea -patient refuses surgical care -consider palliative care, also ordered spiritual care consult who visited once -need discussion with family (sons: Robyn [phone]; Rico [phone]) DVT ppx: resumed heparin 5000mg sq q8h - but patient has been refusing GI ppx: protonix 40 mg IV q12h dispo: discharge to half-way and continue with zosyn dose there, consider installing wound vac there as well after wound vac education if patient still agrees case discussed with Dr. Dalia Taylor, DO PGY-1
[2018-04-03 16:06] VITALS: BP 130/79; TEMP 98.6; O2SAT 98
--- NOTE | 2018-04-03 22:36 | PN ---
DATE: 04/03/2018 LOCATION: Room 665. SUBJECTIVE: This is a 77-year-old female, admitted with possible small bowel obstruction and has had recurrent episodes of symptomatic hypoglycemia and is now being referred for endocrine evaluation and management. Her glucose levels overnight have ranged from 87 to 95 and 109 mg/dL. Her chemistry showed a BUN of 8, sodium 139, potassium 3.6, chloride 109, CO2 of 25, glucose 72 and creatinine 0.5. Her serum cortisol level is 12.1 mcg/dL which is normal and the serum TSH is elevated at 7.74 indicative of subclinical hypothyroidism as noted. Her serum insulin and c-peptide levels are pending at this time. The hemoglobin A1c is 5.2% and clearly has excluded underlying impaired glucose tolerance thereof. PLAN: So at this time we will continue the present medical management with dextrose infusion as given. We will also add a low-dose levothyroxine medication of 25 mcg daily for management of subclinical hypothyroidism. We will obtain serial chemistries and supplement accordingly as needed. We will follow. Aileen Do MD
[2018-04-04] MEDS: Piperacillin/Tazobact 3.375 GM in Sodium Chloride 100 ML IVPB SCH ×3 (03:56→14:16)
[2018-04-04 06:22] LABS: ALB/GLOB RATIO 0.7 (1.0-2.1); ALBUMIN 1.9 g/dL (3.5-5.0); ALT/SGPT 23 U/L (9-52); AST/SGOT 29 U/L (14-36); BLOOD UREA NITROGEN 8 mg/dL (7-17); CALCIUM 7.6 mg/dl (8.6-10.4); GFR NON-AFRICAN AMERICAN > 60
[2018-04-04 06:29] LABS: T4 3.83 ug/dL (5.5-11.0)
[2018-04-04] MEDS ORDERED: Levothyroxine 25 MCG TAB PO SCH (06:30)
--- NOTE | 2018-04-04 07:33 | CP.PCM.PN ---
Subjective - Date & Time of Evaluation Date of Evaluation: 04/04/18 Time of Evaluation: 07:29 - Subjective Subjective: Patient seen and examined at bedside this morning. Objective - Vital Signs/Intake and Output Vital Signs (last 24 hours): Temp Pulse Resp BP Pulse Ox 98.6 F 111 H 20 130/79 98 04/03/18 15:00 04/04/18 01:00 04/03/18 15:00 04/03/18 15:00 04/03/18 15:00 - Medications Medications: Current Medications Bumetanide (Bumex) 1 mg PO DAILY [facility] Last Admin: 03/28/18 10:21 Dose: Not Given Dextrose (Dextrose 50% Inj) 0 ml IVP .STAT PRN; Protocol PRN Reason: Hypoglycemia Protocol Last Admin: 04/02/18 07:55 Dose: 50 ml Dextrose (Glutose 15) 0 gm PO .ONCE PRN; Protocol PRN Reason: Hypoglycemia Protocol Furosemide (Lasix) 40 mg PO DAILY [facility] Last Admin: 03/28/18 10:01 Dose: Not Given Gabapentin (Neurontin) 300 mg PO BID [facility] Last Admin: 04/03/18 19:18 Dose: Not Given Glucagon (Glucagen Diagnostic Kit) 0 mg IM .STAT PRN; Protocol PRN Reason: Hypoglycemia Protocol Heparin Sodium (Porcine) (Heparin) 5,000 units SC Q8 [facility] Stop: 04/07/18 22:00 Last Admin: 04/04/18 06:01 Dose: Not Given Piperacillin Sod/Tazobactam (Sod 3.375 gm/ Sodium Chloride) 100 mls @ 200 mls/hr IVPB Q6H [facility]; Protocol Last Admin: 04/04/18 03:56 Dose: 200 mls/hr Lactic Acid (Lac-Hydrin 12% Lotion (225 G)) 0 gm EXT BID [facility] Last Admin: 04/03/18 19:17 Dose: Not Given Lactobacillus Acidophilus (Bacid Acidophilus) 1 cap PO BID [facility] Last Admin: 04/03/18 19:17 Dose: Not Given Levothyroxine Sodium (Synthroid) 25 mcg PO DAILY@0630 [facility] Last Admin: 04/04/18 06:06 Dose: Not Given Metoprolol Tartrate (Lopressor) 25 mg PO BID [facility] Stop: 04/09/18 18:00 Last Admin: 04/03/18 19:17 Dose: Not Given Ondansetron HCl (Zofran Inj) 4 mg IVP Q4 PRN PRN Reason: Nausea/Vomiting Last Admin: 03/28/18 05:46 Dose: 4 mg Pantoprazole Sodium (Protonix Inj) 40 mg IVP Q12 [facility] Last Admin: 04/03/18 22:04 Dose: 40 mg Simethicone (Mylicon Chew Tab) 80 mg PO TID [facility] Last Admin: 04/03/18 19:18 Dose: Not Given - Labs Labs: 04/03/18 07:47 04/04/18 05:41 PT 15.9 SECONDS (9.7-12.2) H 03/28/18 15:27 INR 1.5 03/28/18 15:27 APTT 38 SECONDS (21-34) H 03/27/18 17:28 - Constitutional Appears: Well (Obese, bedbound elderly female resting in bed in no acute distress) - Head Exam Head Exam: ATRAUMATIC, NORMAL INSPECTION - Eye Exam Eye Exam: EOMI, Normal appearance - ENT Exam ENT Exam: Mucous Membranes Moist, Normal Exam - Neck Exam Neck Exam: Normal Inspection - Respiratory Exam Respiratory Exam: Clear to Ausculation Bilateral, NORMAL BREATHING PATTERN - Cardiovascular Exam Cardiovascular Exam: Irregular Rhythm - GI/Abdominal Exam GI & Abdominal Exam: Soft, Normal Bowel Sounds - Extremities Exam Extremities Exam: absent: Normal Inspection Additional comments: bilateral lymphedema with chronic skin changes. Right anterior tibialis has stuck on growths of dark plaques - Skin Skin Exam: Dry. absent: Normal Color Assessment and Plan - Assessment and Plan (Free Text) Assessment: 77 y/o bedbound female with Afib with RVR on IVC, stage 4 sacral ulcer, lymphedema admitted for black vomiting x 2 in her prison on 03/27. Currently stable on med Infinio. Hypoglycemia -Patient has been having low blood sugar throughout the day, as low as the 20s during this hospitalization. Endocrine (Dr. Do) was consulted for the first time 04/02. Recommends workup. AM cortisone wnl. A1c 5.2% wnl. -pending: ACTH, secum c-peptide, serum insulin level -patient will need accuchecks when she returns to prison -BB can mask hypoglycemic sx; lowered dose from metoprolol 50 mg BID to 25 on 04/03 Afib with RVR -currently on tele IRR, HR 70s, can be 130s during meals -continue to monitor on tele -metoprolol tartrate 50 mg BID -[id number] score at least 5 (age >= 75 is 2 points, female sex is 1 point, hx stroke/TIA/VTE is 2 points). Discussed with cardiology recommendations on anticoagulation. However, cardiology states she has been refusing anticoagulation. sacral ulcer stage 4 -pressure care - turn patient, modify bed if possible - but patient has been refusing due to pain -wound cx ulcer: proteus mirabilis, klebsiella, s. aureus -PICC line inserted -patient has been refusing wound vac here in the hospital but is considering it in the prison. She does not like to be turned due to pain so she will be turned once if wound vac just installed in the prison, not also here in [facility]. -ID recommended to continue with zosyn 3.375 q6h for 6 weeks (final day will be May 09), can continue in prison. Spoke to Dr. Morales 04/01 concerning her refusing PO meds but could just continue with zosyn. -CT scan of sacrum ordered per surgery recs to r/o osteomyelitis -percocet 5/325 1 tablet prior to wound cleaning PRN for pain but caution with constipation side effect bilateral lymphedema -caution with lasix and bumex due to hypokalemia, being held - patient also refusing PO meds -consider elevation of legs -lac hydrin cream BID per wound care recs -f/u CT venogram ordered by cardiology for venous stasis; patient refused 03/29, still refusing hypothyroidism -Dr. Do has been doing an endocrine work up to evaluate for pt's hypoglycemia. Ordered thyroid labs. TSH = 7.74 and T4 = 3.83. -Dr. Do ordered levothyroxine 25 mcg PO 04/03 abdominal pain - resolved, partial SBO vs. gastritis -CT abd/pelvis concerning for possible bowel perforation per radiology. Patient endorsed BM so can be resolving SBO. Patient has not vomited ever since the incident in the prison. -Surgery recommends advancement to soft foods -Pt refused NGT decompression SBO -Avoid NSAIDS for possible gastritis Hypomagenesemia and hypokalemia -attempt to continue to monitor and replete despite patient noncompliance -has in the past accepted 21 mmol Kphos 04/01 -states she could try eating mashed banana or kiwi to increase K intake -soft regular diet in order to increase PO intake; patient states she has poor dentition Patient noncompliance -patient continues to consistently refuse PO medications and interventions for her sacral wound. Also refusing any anticoagulation for her Afib -wound care reconsulted for wound vac education as pt open to the idea. Will plan to install when she arrives to prison. -patient refuses surgical care -consider palliative care, also ordered spiritual care consult who visited once -need discussion with family (sons: Robyn [phone]; Rico [phone]) -psych consulted 04/04 DVT ppx: resumed heparin 5000mg sq q8h - but patient has been refusing GI ppx: protonix 40 mg IV q12h dispo: psych recs 04/04 pending, then discharge to prison, endocrine workup f/u outpatient case discussed with Dr. Leonel Taylor, DO PGY-1
[2018-04-04 08:21] VITALS: PULSE 92
--- NOTE | 2018-04-04 10:53 | CP.PCM.PN ---
Subjective - Date & Time of Evaluation Date of Evaluation: 04/04/18 Time of Evaluation: 10:50 - Subjective Subjective: Matthew Mendes, PGY-[address] Bryant Patient seen and evaluated at bedside. Reports no acute complaints or events overnight. Patient has refused CT venogram multiple times and thus unable to assess etiology of severe venous changes, possibly due to poor flow through IVC filter. Denies CP, SOB, palpitations, dizziness and headaches. Objective - Vital Signs/Intake and Output Vital Signs (last 24 hours): Temp Pulse Resp BP Pulse Ox 98.6 F 92 H 20 130/79 98 04/03/18 15:00 04/04/18 07:55 04/03/18 15:00 04/03/18 15:00 04/03/18 15:00 - Medications Medications: Current Medications Bumetanide (Bumex) 1 mg PO DAILY [facility] Last Admin: 03/28/18 10:21 Dose: Not Given Dextrose (Dextrose 50% Inj) 0 ml IVP .STAT PRN; Protocol PRN Reason: Hypoglycemia Protocol Last Admin: 04/02/18 07:55 Dose: 50 ml Dextrose (Glutose 15) 0 gm PO .ONCE PRN; Protocol PRN Reason: Hypoglycemia Protocol Furosemide (Lasix) 40 mg PO DAILY [facility] Last Admin: 03/28/18 10:01 Dose: Not Given Gabapentin (Neurontin) 300 mg PO BID [facility] Last Admin: 04/03/18 19:18 Dose: Not Given Glucagon (Glucagen Diagnostic Kit) 0 mg IM .STAT PRN; Protocol PRN Reason: Hypoglycemia Protocol Piperacillin Sod/Tazobactam (Sod 3.375 gm/ Sodium Chloride) 100 mls @ 200 mls/hr IVPB Q6H [facility]; Protocol Last Admin: 04/04/18 08:05 Dose: 200 mls/hr Dextrose (Dextrose 5% In Water 1000 Ml) 1,000 mls @ 0 mls/hr IV .Q0M [facility] Lactic Acid (Lac-Hydrin 12% Lotion (225 G)) 0 gm EXT BID [facility] Last Admin: 04/03/18 19:17 Dose: Not Given Lactobacillus Acidophilus (Bacid Acidophilus) 1 cap PO BID [facility] Last Admin: 04/03/18 19:17 Dose: Not Given Levothyroxine Sodium (Synthroid) 25 mcg PO DAILY@0630 [facility] Last Admin: 04/04/18 06:06 Dose: Not Given Metoprolol Tartrate (Lopressor) 25 mg PO BID [facility] Stop: 04/09/18 18:00 Last Admin: 04/03/18 19:17 Dose: Not Given Morphine Sulfate (Morphine) 1 mg IM Q4 PRN PRN Reason: Pain, severe (8-10) Stop: 04/11/18 07:56 Ondansetron HCl (Zofran Inj) 4 mg IVP Q4 PRN PRN Reason: Nausea/Vomiting Last Admin: 03/28/18 05:46 Dose: 4 mg Pantoprazole Sodium (Protonix Inj) 40 mg IVP Q12 [facility] Last Admin: 04/03/18 22:04 Dose: 40 mg Rivaroxaban (Xarelto) 15 mg PO DAILY [facility] Simethicone (Mylicon Chew Tab) 80 mg PO TID [facility] Last Admin: 04/03/18 19:18 Dose: Not Given - Labs Labs: 04/03/18 07:47 04/04/18 05:41 PT 15.9 SECONDS (9.7-12.2) H 03/28/18 15:27 INR 1.5 03/28/18 15:27 APTT 38 SECONDS (21-34) H 03/27/18 17:28 - Additional Findings Additional findings: - Constitutional Appears: Well, Non-toxic, No Acute Distress - Head Exam Head Exam: ATRAUMATIC, NORMOCEPHALIC - Eye Exam Eye Exam: EOMI, Normal appearance - ENT Exam ENT Exam: Mucous Membranes Moist - Respiratory Exam Respiratory Exam: Decreased Breath Sounds, Rales (RLL), NORMAL BREATHING PATTERN. absent: Chest Wall Tenderness, Clear to Auscultation Bilateral (RLL) - Cardiovascular Exam Cardiovascular Exam: Irregular Rhythm, +S1, +S2 - GI/Abdominal Exam GI & Abdominal Exam: Soft. absent: Distended - Extremities Exam Extremities exam: Positive for: pedal edema (4+ severe b/l LE edema with venous stasis changes, severe TTP). Negative for: normal inspection - Back Exam Back exam: absent: CVA tenderness (L), CVA tenderness (R) - Neurological Exam Neurological exam: Abnormal Gait (bedbound), Alert, Oriented x3 Assessment and Plan - Assessment and Plan (Free Text) Assessment: Assessment: Ms. Giron is a 77 year old bed-bound female w/ PMHx of multiple myocardial infarctions, A. fib. w/ IVC filter in place, LE lymphedema, sacral ulcer, breast cancer w/ lumpectomy, who is being evaluated for severe venous stasis and deconditioning in setting of A fib with IVC filter. Refused CT venogram on multiple attempts. Plan: Afib w/ RVR, medication noncompliance - sustained A fib today, asymptomatic - C/w home medications: metoprolol tartrate 50 mg BID, Lasix 40 mg daily, Bumex 1mg daily - Echo reports EF 59%, mild LVH, RV systolic function mildly reduced, RA severely dilated, severe TR with severe pulm HTN - Spoke with patient again regarding benefits of venogram regarding her care and etiology of her deconditioning and severe venous stasis changes - Ongoing discussion with patient regarding noncompliance - Patient to begin Xarelto 15 mg PO daily upon discharge Case reviewed and plan discussed with Dr. Bryant. Future recommendations per Dr. Bryant. Matthew Mendes, PGY-1
[2018-04-04] MEDS: Lactobacillus Acidophilus 500 MU Cap PO SCH (11:03)
[2018-04-04] MEDS: Ammonium Lactate 12% Lotion (225 g) EXT SCH (11:07)
[2018-04-04] MEDS: Simethicone 80 mg Chewtab PO SCH ×2 (11:12→14:21)
--- NOTE | 2018-04-04 11:14 | PCM.PSYCH ---
Initial Psychiatric Evaluation - Initial Psychiatric Evaluation Type of Admission: Voluntary Chief Complaint (in patient's own words): "I'm fine" History of Present Illness and Precipitating Events: She is seen, chart reviewed and case discussed Consult was requested for her mood symptoms and treatment refusal The pt is a poor historian and not cooperative fully with the technical proposal writer She seems to have anxiety, low level depression due to her ongoing medical problems and disability, but she minimizes it. She keeps saying "I'm not crazy" No SI, HI, del or halluc reported Her memory is very bad, which she acknowledges, incl immediate and short term memory as tested today No drug or alcohol use reported No past psychiatric hx reported, except for visits by psychiatrists likely at hospitals or [place] No family psych hx Medical hx as per chart - multiple issues Current Medications: Active Medications Generic Name Dose Route Start Last Admin Trade Name Freq PRN Reason Stop Dose Admin Bumetanide 1 mg 03/28/18 10:00 03/28/18 10:21 Bumex PO Not Given DAILY [facility] Dextrose 0 ml 03/31/18 12:12 04/02/18 07:55 Dextrose 50% Inj IVP 50 ml .STAT PRN Administration Hypoglycemia Protocol Protocol Dextrose 0 gm 03/31/18 12:12 Glutose 15 PO .ONCE PRN Hypoglycemia Protocol Protocol Furosemide 40 mg 03/28/18 10:00 03/28/18 10:01 Lasix PO Not Given DAILY [facility] Gabapentin 300 mg 03/28/18 10:00 04/04/18 11:13 Neurontin PO Not Given BID [facility] Glucagon 0 mg 03/31/18 12:12 Glucagen Diagnostic Kit IM .STAT PRN Hypoglycemia Protocol Protocol Piperacillin Sod/Tazobactam 100 mls @ 200 mls/hr 03/28/18 08:15 04/04/18 08:05 Sod 3.375 gm/ Sodium Chloride IVPB 200 mls/hr Q6H [facility] Administration Protocol Dextrose 1,000 mls @ 0 mls/hr 04/04/18 09:15 Dextrose 5% In Water 1000 Ml IV .Q0M [facility] Per Protocol Lactic Acid 0 gm 03/29/18 10:30 04/04/18 11:07 Lac-Hydrin 12% Lotion (225 G) EXT 1 applic BID [facility] Administration Lactobacillus Acidophilus 1 cap 03/28/18 10:00 04/04/18 11:03 Bacid Acidophilus PO Not Given BID [facility] Levothyroxine Sodium 25 mcg 04/04/18 06:30 04/04/18 06:06 Synthroid PO Not Given DAILY@0630 [facility] Metoprolol Tartrate 25 mg 04/03/18 18:00 04/04/18 11:12 Lopressor PO 04/09/18 18:00 Not Given BID [facility] Morphine Sulfate 1 mg 04/04/18 07:55 Morphine IM 04/11/18 07:56 Q4 PRN Pain, severe (8-10) Ondansetron HCl 4 mg 03/27/18 23:28 03/28/18 05:46 Zofran Inj IVP 4 mg Q4 PRN Administration Nausea/Vomiting Pantoprazole Sodium 40 mg 04/02/18 10:30 04/04/18 11:04 Protonix Inj IVP 40 mg Q12 [facility] Administration Rivaroxaban 15 mg 04/05/18 11:00 Xarelto PO DAILY [facility] Simethicone 80 mg 03/30/18 21:45 04/04/18 11:12 Mylicon Chew Tab PO Not Given TID [facility] Past Psychiatric History - Past Psychiatric History Previous Treatment History: None Pertinent Medical Hx (Current Medical&Sleep Prob, Allergies): Allergies Allergy/AdvReac Type Severity Reaction Status Date / Time erythromycin base Allergy ANAPHYLAXIS Verified 03/27/18 16:58 Polyethylene Glycol/Polyvinyl [Artificial Tears] 1 drop BID 03/27/18 Senna Plus 03/27/18 fentaNYL 100mcg/hr [Duragesic Patch 100mcg/hr] 1 patch TD Q72H 03/27/18 Ammonium Lactate 12% [Lac-Hydrin 12% Lotion (225 g)] 20 mg EXT BID 30 Days #30 bottle 04/02/18 Furosemide [Lasix] 20 mg PO DAILY #30 tab 04/02/18 Lactobacillus Acidophilus [Bacid Acidophilus] 1 cap PO BID 60 Days #60 cap 04/02/18 Metoprolol Tartrate [Lopressor] 50 mg PO BID 60 Days #60 tab 04/02/18 Piperacillin/Tazobact [Zosyn] 3.375 gm IVPB Q6H 37 Days vial 04/02/18 Potassium Chloride 10 meq PO DAILY #30 tab.er.prt 04/02/18 Levothyroxine [Synthroid] 25 mcg PO DAILY@0630 #30 tab 04/04/18 Metoprolol Tartrate [Lopressor] 25 mg PO BID #30 tab 04/04/18 Potassium Phosphate 20 mmole IV ONCE #30 vial 04/04/18 Review of Systems - Psychiatric Psychiatric: Abnormal Sleep Pattern, Anxiety, Depression (mild to moderate?), Irritability, Mood Swings. absent: Homicidal Ideation, Paranoia, Suicidal Ideation Mental Status Examination - Personal Presentation Personal Presentation: Looks stated age - Affect Affect: Broad - Motor Activity Motor Activity: Calm - Reliability in Providing Information Reliability in Providing Information: Poor, due to cognitve impairment - Speech Speech: Organized - Mood Mood: Anxious, Other (irate) - Formal Thought Process Formal Thought Process: No Impairment - Cognitive Functions Orientation: Person, Place, Time Sensorium: Alert Attention/Concentration: Easily distracted Abstract Thinking: Coila Estimate of Intelligence: Average Judgement: Imparied, as evidence by: Poor judgement Memory: Recent impaired, as evidence by: Inability to recall events of the day, Recent imparied as evidence by:Inability to complete 3/3 object recall, Remote impaired as evidenced by: Inability to recall sig life events, Remote impaired as evidenced by: Inability to recall historical events - Risk Risk: Diminished functioning - Strength & Assets Inventory Strength & Assets Inventory: Family support - Limitations Limitations: Other DSM 5 DX - DSM 5 DSM 5 Diagnosis: Adjustment d/o - with mixed depression/anxiety Dementia - unspecified - Recommended/Plan of Treatment Treatment Recommendations and Plan of Treatment: Lexapro for anxiety and depressive sxs Support and psychoed Family involvement Psych will sign off
--- NOTE | 2018-04-04 12:35 | CP.PCM.PN ---
Subjective - Date & Time of Evaluation Date of Evaluation: 04/04/18 Time of Evaluation: 09:00 - Subjective Subjective: refusing CT Sacrum all wound isolates are sensitive to Zosyn MRSA was not detected Objective - Vital Signs/Intake and Output Vital Signs (last 24 hours): Temp Pulse Resp BP Pulse Ox 98.6 F 92 H 20 130/79 98 04/03/18 15:00 04/04/18 07:55 04/03/18 15:00 04/03/18 15:00 04/03/18 15:00 - Medications Medications: Current Medications Bumetanide (Bumex) 1 mg PO DAILY [facility] Last Admin: 03/28/18 10:21 Dose: Not Given Dextrose (Dextrose 50% Inj) 0 ml IVP .STAT PRN; Protocol PRN Reason: Hypoglycemia Protocol Last Admin: 04/02/18 07:55 Dose: 50 ml Dextrose (Glutose 15) 0 gm PO .ONCE PRN; Protocol PRN Reason: Hypoglycemia Protocol Escitalopram Oxalate (Lexapro) 5 mg PO DAILY [facility] Furosemide (Lasix) 40 mg PO DAILY [facility] Last Admin: 03/28/18 10:01 Dose: Not Given Gabapentin (Neurontin) 300 mg PO BID [facility] Last Admin: 04/04/18 11:13 Dose: Not Given Glucagon (Glucagen Diagnostic Kit) 0 mg IM .STAT PRN; Protocol PRN Reason: Hypoglycemia Protocol Piperacillin Sod/Tazobactam (Sod 3.375 gm/ Sodium Chloride) 100 mls @ 200 mls/hr IVPB Q6H [facility]; Protocol Last Admin: 04/04/18 08:05 Dose: 200 mls/hr Dextrose (Dextrose 5% In Water 1000 Ml) 1,000 mls @ 0 mls/hr IV .Q0M [facility] Lactic Acid (Lac-Hydrin 12% Lotion (225 G)) 0 gm EXT BID [facility] Last Admin: 04/04/18 11:07 Dose: 1 applic Lactobacillus Acidophilus (Bacid Acidophilus) 1 cap PO BID [facility] Last Admin: 04/04/18 11:03 Dose: Not Given Levothyroxine Sodium (Synthroid) 25 mcg PO DAILY@0630 [facility] Last Admin: 04/04/18 06:06 Dose: Not Given Metoprolol Tartrate (Lopressor) 25 mg PO BID [facility] Stop: 04/09/18 18:00 Last Admin: 04/04/18 11:12 Dose: Not Given Morphine Sulfate (Morphine) 1 mg IM Q4 PRN PRN Reason: Pain, severe (8-10) Stop: 04/11/18 07:56 Ondansetron HCl (Zofran Inj) 4 mg IVP Q4 PRN PRN Reason: Nausea/Vomiting Last Admin: 03/28/18 05:46 Dose: 4 mg Pantoprazole Sodium (Protonix Inj) 40 mg IVP Q12 [facility] Last Admin: 04/04/18 11:04 Dose: 40 mg Rivaroxaban (Xarelto) 15 mg PO DAILY [facility] Simethicone (Mylicon Chew Tab) 80 mg PO TID [facility] Last Admin: 04/04/18 11:12 Dose: Not Given - Labs Labs: 04/03/18 07:47 04/04/18 05:41 PT 15.9 SECONDS (9.7-12.2) H 03/28/18 15:27 INR 1.5 03/28/18 15:27 APTT 38 SECONDS (21-34) H 03/27/18 17:28 Assessment and Plan (1) Abdominal pain Status: Acute (2) Atrial fibrillation with RVR Status: Acute (3) Partial small bowel obstruction Status: Resolved (4) Decubitus skin ulcer Status: Acute
[2018-04-04 17:17] LABS: C-PEPTIDE 2.03 ng/mL (0.80-3.85)
--- NOTE | 2018-04-04 17:28 | CP.PCM.DIS ---
Provider - Provider Date of Admission: 03/27/18 21:24 Attending physician: Kvng Castaneda MD Primary care physician: Jes Mendieta Consults: ID (Andrew), Surgery (Erasmo), Endo (Hi), Wound Care (Katy TEJEDA), Cardio (Manny), Psych (Cary) Time Spent in preparation of Discharge (in minutes): 45 Hospital Course - Lab Results Lab Results: Micro Results 03/27/18 17:30 Blood Blood Culture - Final NO GROWTH AFTER 5 DAYS 03/27/18 17:30 Blood Gram Stain - Final TEST NOT PERFORMED 03/27/18 17:00 Blood Blood Culture - Final NO GROWTH AFTER 5 DAYS 03/27/18 17:00 Blood Gram Stain - Final TEST NOT PERFORMED 03/27/18 19:03 Sacral Gram Stain - Final 03/27/18 19:03 Sacral Wound Culture - Final Proteus Mirabilis Klebsiella Pneumoniae Ssp Pneu Staphylococcus Aureus Most Recent Lab Values WBC 5.4 K/uL (4.8-10.8) 04/03/18 07:47 RBC 4.06 Mil/uL (3.80-5.20) 04/03/18 07:47 Hgb 12.2 g/dL (11.0-16.0) 04/03/18 07:47 Hct 35.7 % (34.0-47.0) 04/03/18 07:47 MCV 87.9 fL (81.0-99.0) 04/03/18 07:47 MCH 30.0 pg (27.0-31.0) 04/03/18 07:47 MCHC 34.1 g/dL (33.0-37.0) 04/03/18 07:47 RDW 16.9 % (11.5-14.5) H 04/03/18 07:47 Plt Count 198 K/uL (130-400) 04/03/18 07:47 MPV 8.1 fL (7.2-11.7) 04/03/18 07:47 Neut % (Auto) 66.0 % (50.0-75.0) 04/03/18 07:47 Lymph % (Auto) 17.9 % (20.0-40.0) L 04/03/18 07:47 Traill % (Auto) 11.0 % (0.0-10.0) H 04/03/18 07:47 Eos % (Auto) 3.8 % (0.0-4.0) 04/03/18 07:47 Baso % (Auto) 1.3 % (0.0-2.0) 04/03/18 07:47 Neut # (Auto) 3.6 K/uL (1.8-7.0) 04/03/18 07:47 Lymph # (Auto) 1.0 K/uL (1.0-4.3) 04/03/18 07:47 Traill # (Auto) 0.6 K/uL (0.0-0.8) 04/03/18 07:47 Eos # (Auto) 0.2 K/uL (0.0-0.7) 04/03/18 07:47 Baso # (Auto) 0.1 K/uL (0.0-0.2) 04/03/18 07:47 PT 15.9 SECONDS (9.7-12.2) H 03/28/18 15:27 INR 1.5 03/28/18 15:27 APTT 38 SECONDS (21-34) H 03/27/18 17:28 pO2 30 mm/Hg (30-55) 03/30/18 19:30 VBG pH 7.38 (7.32-7.43) 03/30/18 19:30 VBG pCO2 50 mmHg (40-60) 03/30/18 19:30 VBG HCO3 26.4 mmol/L 03/30/18 19:30 VBG Total CO2 31.1 mmol/L (22-28) H 03/30/18 19:30 VBG O2 Sat (Calc) 60.3 % (40-65) 03/30/18 19:30 VBG Base Excess 3.4 mmol/L (0.0-2.0) H 03/30/18 19:30 VBG Potassium 2.7 mmol/L (3.6-5.2) L 03/30/18 19:30 Sodium 140.0 mmol/l (132-148) 03/30/18 19:30 Chloride 108.0 mmol/L (98-107) H 03/30/18 19:30 Glucose 93 mg/dl (65-105) 03/30/18 19:30 Lactate 1.6 mmol/L (0.7-2.1) 03/30/18 19:30 FiO2 21.0 % 03/27/18 17:40 Crit Value Called To Dr villalba 03/27/18 17:40 Crit Value Called By Cosme ugarte 03/27/18 17:40 Crit Value Read Back Y 03/27/18 17:40 Blood Gas Notified Time 1748 03/27/18 17:40 Sodium 137 mmol/L (132-148) 04/04/18 05:41 Potassium 3.6 mmol/L (3.6-5.2) 04/04/18 05:41 Chloride 107 mmol/L (98-107) 04/04/18 05:41 Carbon Dioxide 24 mmol/L (22-30) 04/04/18 05:41 Anion Gap 9 (10-20) L 04/04/18 05:41 BUN 8 mg/dL (7-17) 04/04/18 05:41 Creatinine 0.6 mg/dL (0.7-1.2) L 04/04/18 05:41 Est GFR ( Amer) > 60 04/04/18 05:41 Est GFR (Non-Af Amer) > 60 04/04/18 05:41 POC Glucose (mg/dL) 95 mg/dL (65-110) 04/03/18 11:21 Random Glucose 74 mg/dL (65-105) 04/04/18 05:41 Hemoglobin A1c 5.2 % (4.2-6.5) 04/03/18 07:47 Insulin Level 1.9 uIU/mL (2.0-19.6) L 04/03/18 07:47 C-Peptide 2.03 ng/mL (0.80-3.85) 04/02/18 09:03 Calcium 7.6 mg/dl (8.6-10.4) L 04/04/18 05:41 Phosphorus 2.0 mg/dL (2.5-4.5) L 04/03/18 07:47 Magnesium 1.6 mg/dL (1.6-2.3) 04/03/18 07:47 Total Bilirubin 0.8 mg/dL (0.2-1.3) 04/04/18 05:41 AST 29 U/L (14-36) 04/04/18 05:41 ALT 23 U/L (9-52) 04/04/18 05:41 Alkaline Phosphatase 93 U/L (38-126) 04/04/18 05:41 Total Creatine Kinase 30 U/L (30-135) 03/27/18 17:28 CK-MB (Mass) 0.52 ng/mL (0.0-3.38) 03/27/18 17:28 Troponin I < 0.0120 ng/mL (0.00-0.120) 03/27/18 17:28 NT-Pro-B Natriuret Pep 4370 pg/mL (0-900) H 03/28/18 07:44 Total Protein 4.6 g/dL (6.3-8.3) L 04/04/18 05:41 Albumin 1.9 g/dL (3.5-5.0) L 04/04/18 05:41 Globulin 2.7 gm/dL (2.2-3.9) 04/04/18 05:41 Albumin/Globulin Ratio 0.7 (1.0-2.1) L 04/04/18 05:41 Lipase 95 U/L (23-300) 03/27/18 21:00 Free T4 1.18 ng/dL (0.78-2.19) 04/04/18 05:41 Thyroxine (T4) 3.83 ug/dL (5.5-11.0) L 04/04/18 05:41 TSH 3rd Generation 9.58 mIU/L (0.46-4.68) H 04/04/18 05:41 Cortisol AM Sample 12.1 ug/dL (4.46-22.7) 04/03/18 07:47 Venous Blood Potassium 2.7 mmol/L (3.6-5.2) L 03/30/18 19:30 Ur L.pneumophila Ag Negative (NEGATIVE) 03/28/18 13:49 Mycoplasma pneumon IgM Negative (NEGATIVE) 03/28/18 13:49 Ur Strep pneumoniae Ag Not detected (Not Detected) 03/28/18 16:24 Blood Type B NEGATIVE 03/27/18 17:43 Antibody Screen Positive 03/27/18 17:43 Antibody Identification Anti C Anti D 03/27/18 17:43 Antibody Identification Anti C Anti D 03/27/18 17:43 Antigen Identification C Antigen - NEGATIVE 03/27/18 17:43 - Hospital Course Hospital Course: On presentation: 77 Y female w/ PMHx of multiple myocardial infraction, Afib w/ IVC filter in place, LE lymphedema, sacral ulcer, breast cancer w/ lumpectomy, ?endometrial adenocarcinoma w/ hysterectomy presented to ED from custodial following 2 episodes of black liquid vomiting. Patient states she has been vomiting for the past several months but today was the first time she noticed the black liquid vomiting. Patient states she has severe abdominal pain in the epigastric region following eating meals that also has been occurring for the past several months. Patient states she has about 1-2 loose BM per day and no constipation. Patient states she was fully functional about a year prior, but about 8 months ago, she had an episode of LOC that resulted in her become bedbound. Patient is unsure of the full medical course that resulted in becoming bedbound. During hospital admission: 77 y/o female with multiple medical problems including PMHx of Afib with RVR and IVC filter, chronic lymphedema, and UT x 2 initially was hospitalized for a possible SBO s/p black vomit x 2 in her custodial. Xray and CT abdomen were indicative of possible SBO, but patient has been having regular BMs. Surgery was consulted. Patient was temporarily placed on NPO pending surgery, however patient's pain resolved. Patient's diet advanced from NPO to clear liquids then gradually to regular food. During her stay, she also had care for her stage 4 sacral ulcer. Cultures were completed, and Dr. Morales, infectious disease physician, recommended zosyn for a total of 6 weeks. Patient also has been having electrolyte imbalances especially hypokalemia. She has been refusing most of her medications, including sometimes electrolyte repletion. Cardiology was consulted and they recommended CT scan of her legs due to her venous stasis to attempt to find possible clots due to her high risk, however, she refused CT scan. Patient was not on a blood thinner despite her Afib and has been refusing heparin during her time. Due to her Afib and risk of stroke, cardiology recommended 15 mg of xarelto daily to be added to her daily medications. Patient agrees to have wound vac and lymphedema boots placed on her when she returns to the custodial due to the pain she experiences each time nursing turns her over for wound care here. Finally, patient has been getting hypoglycemia (glucose can get to 20s) despite no history of diabetes. Endocrine work up and Dr. Do, life sciences instructor, began following her case. She was found to have hypothyroidism and was discharged with levothyroxine, which she never took here due to refusing it. There are other labs pending work up for her unexplained hypoglycemia such as c-peptide and aldosterone levels. Patient is to be discharged to her custodial. Patient is to take the following medications: -ammonium lactate 12% cream to apply twice a day to legs and hips -furosemide 20 mg oral daily - take one pill by mouth daily -levothyroxine 25 mcg oral daily - take one pill by mouth daily -fentanyl patch q72 hours 100mcg/hour -metoprolol tartrate 25 mg oral twice a day - take one pill by mouth twice a day -zosyn 3.375 g Intravenously every 6 hours was ordered before discharge. But Dr. Morales approved meropenem Intravenously 500 mg q8h until May 09 due to sensitivities results (6 weeks total of antibiotics). Patient was discharged after he approved it, so primary care physician Dr. Mendieta will have to order it. She was notified by phone on 04/04 at 5:26 PM. -xarelto 15 mg oral - take one pill by mouth daily. -lexapro 5 mg oral - take one pill by mouth daily For potassium repletion: -potassium chloride 10 meq oral daily - take one tablet daily OR -potassium phosphate 20 mmole intravenously - daily Patient is to follow up with the following specialties: -primary care physician (Anam) -Surgery (Erasmo) -Infectious disease (Andrew) -endocrinology (Hi) - follow up with low blood sugar lab work -wound care (NIKHIL Burns): wound vac installation and lymphedema leg wrap installation both upon arrival in custodial -cardiology (Manny) -psychiatry (Cary) If patient has worse than baseline leg pain, chest pain, shortness of breath, palpitations, she should seek medical attention immediately. Patient agrees with the above. *Note this is a summary of hospital events. Please refer to EMR for full admission details. - Date & Time of H&P Date of H&P: 04/04/18 Time of H&P: 17:31 Discharge Exam - Head Exam Head Exam: ATRAUMATIC, NORMAL INSPECTION - Eye Exam Eye Exam: EOMI, Normal appearance - ENT Exam ENT Exam: Mucous Membranes Moist - Neck Exam Neck exam: Normal Inspection - Respiratory Exam Respiratory Exam: Clear to PA & Lateral, NORMAL BREATHING PATTERN, UNREMARKABLE - Cardiovascular Exam Cardiovascular Exam: Irregular Rhythm - GI/Abdominal Exam GI & Abdominal Exam: Normal Bowel Sounds, Unremarkable - Extremities Exam Additional comments: bilateral lymphedema, right tibia with black plaque skin growths - Neurological Exam Neurological exam: Alert, Oriented x3 - Skin Additional comments: Refused examination of sacral ulcer Discharge Plan - Discharge Medications Prescriptions: Ammonium Lactate 12% [Lac-Hydrin 12% Lotion (225 g)] 20 mg EXT BID 30 Days #30 bottle Furosemide [Lasix] 20 mg PO DAILY #30 tab Lactobacillus Acidophilus [Bacid Acidophilus] 1 cap PO BID 60 Days #60 cap Levothyroxine [Synthroid] 25 mcg PO DAILY@0630 #30 tab Metoprolol Tartrate [Lopressor] 25 mg PO BID #30 tab Piperacillin/Tazobact [Zosyn] 3.375 gm IVPB Q6H 37 Days vial Potassium Chloride 10 meq PO DAILY #30 tab.er.prt Potassium Phosphate 20 mmole IV ONCE #30 vial - Follow Up Plan Condition: STABLE Disposition: NURSING FACILITY MEDICAID CERT Instructions: Pressure Sores, Heart Failure, Adult, Atrial Fibrillation (DC), Pneumonia, Adult (DC), Acute Abdominal Pain (DC) Additional Instructions: Patient is to be discharged to her custodial. Patient is to take the following medications: -ammonium lactate 12% cream to apply twice a day to legs and hips -furosemide 20 mg oral daily - take one pill by mouth daily -levothyroxine 25 mcg oral daily - take one pill by mouth daily -metoprolol tartrate 25 mg oral twice a day - take one pill by mouth twice a day -zosyn 3.375 g Intravenously every 6 hours for 37 days -xarelto 15 mg oral - take one pill by mouth daily -lexapro 5 mg oral - take one pill by mouth daily For potassium repletion -potassium chloride 10 meq oral daily - take one tablet daily OR -potassium phosphate 20 mmole intravenously - daily Patient is to follow up with the following specialties: -primary care physician (Anam) -Surgery ([place]) -Infectious disease (Andrew) -endocrinology ([facility]) - follow up with low blood sugar lab work -wound care (NIKHIL Burns): [phone] - wound vac installation and lymphedema leg wrap installation both upon arrival in custodial -cardiology (Manny) -psychiatry (Cary) If patient has worse than baseline leg pain, chest pain, shortness of breath, palpitations, she should seek medical attention immediately. Patient agrees with the above. Referrals: Yunier Townsend MD [Staff Provider] - Aileen Do MD [Medical Doctor] - Festus Bryant MD [Staff Provider] - Jim Burns RN [Registered Nurse] - Keon Zimmerman Jr., MD [Staff Provider] - Kurt Bah MD [Staff Provider] -
--- NOTE | 2018-04-04 23:06 | PN ---
DATE: 04/04/2018 ENDOCRINOLOGY FOLLOWUP NOTE LOCATION: Room 665. This is a 77-year-old female with bacteremia and sacral decubitus ulcers with ongoing IV antibiotic management and is also being followed closely for metabolic management because of episodic bouts of symptomatic hypoglycemia with underlying severe under nutrition as noted thereof. Her latest glucose levels have ranged from 74 to 95 mg/dL. Her chemistry showed a BUN of 8, sodium 137, potassium 3.6, chloride 107, CO2 of 24, glucose 74, and creatinine 0.6. Her thyroid study showed a T4 of 3.83 with a TSH of 9.58 and a free T4 of 1.18 indicative of early hypothyroidism as noted thereof. We will continue the levothyroxine given as 25 mcg once daily in the morning as ordered. We will obtain serial chemistries and supplement accordingly as needed. We will also obtain serial thyroid studies and adjust her dose regimen accordingly. We will follow. Aileen Do MD
== END 2018-04-04 15:22 | DRG 388 ==
LOC: C.ER 16:43 → C.9E 21:24 → C.6T 22:05
PROVIDERS: ADMIT Family Medicine; ATTEND Family Medicine
PROC: 02HV33Z Insertion of Infusion Device into Superior Vena Cava, Percutaneous Approach (ICD-10-PCS; principal; 2018-03-30)
PROC: B548ZZA Ultrasonography of Superior Vena Cava, Guidance (ICD-10-PCS; 2018-03-30)
DX: K56.600 Partial intestinal obstruction, unspecified as to cause (principal); L89.154 Pressure ulcer of sacral region, stage 4; J18.9 Pneumonia, unspecified organism; R78.81 Bacteremia; E03.9 Hypothyroidism, unspecified; E27.9 Disorder of adrenal gland, unspecified; E16.2 Hypoglycemia, unspecified; E66.9 Obesity, unspecified; E78.5 Hyperlipidemia, unspecified; E83.42 Hypomagnesemia; E87.6 Hypokalemia; F03.90 Unspecified dementia, unspecified severity, without behavioral disturbance, psychotic disturbance, mood disturbance, and anxiety; F32.9 Major depressive disorder, single episode, unspecified; F41.9 Anxiety disorder, unspecified; I11.0 Hypertensive heart disease with heart failure; I25.10 Atherosclerotic heart disease of native coronary artery without angina pectoris; I25.2 Old myocardial infarction; I48.2 Chronic atrial fibrillation; I50.9 Heart failure, unspecified; I87.8 Other specified disorders of veins; L89.159 Pressure ulcer of sacral region, unspecified stage; M17.0 Bilateral primary osteoarthritis of knee; Z51.5 Encounter for palliative care; Z53.20 Procedure and treatment not carried out because of patient's decision for unspecified reasons; Z74.01 Bed confinement status; Z79.01 Long term (current) use of anticoagulants; Z86.73 Personal history of transient ischemic attack (TIA), and cerebral infarction without residual deficits; L89.621 Pressure ulcer of left heel, stage 1

== ENCOUNTER 2018-09-30 14:13 | Inpatient (IN) | payer MEDICARE, OTHER | END 2018-10-06 15:58 | disposition hospice, inpatient (51) | DRG 871 | LOC: C.ER 14:13 → C.9I 17:54 | PROVIDERS: ADMIT Hospitalist | PROC: 02HV33Z Insertion of Infusion Device into Superior Vena Cava, Percutaneous Approach (ICD-10-PCS; principal; 2018-09-30) ==

== ENCOUNTER 2018-10-06 15:38 | Inpatient (IN) | payer OTHER ==
[2018-09-30 21:29] VITALS: PULSE 166
[2018-10-06 16:23] VITALS: BMI 47.6
[2018-10-06] MEDS ORDERED: Morphine 100 MG in Sodium Chloride 0.9% 90 ML IV PRN (16:43)
[2018-10-06] MEDS ORDERED: HYDROmorphone 1 mg/ml ISec IVP PRN (16:44)
--- NOTE | 2018-10-06 16:54 | CP.PCM.HP ---
History of Present Illness - History of Present Illness History of Present Illness: Please note, this patient is now admitted as a hospice patient. Please see the previous account number This is a very sick 77 year old female who has been in the ICU with sepsis and lower extremity limb ischemia The patient is being discharged from hospital care to admited HOSPICE care. She has been evalauted by [facility]. She is DNR and DNI and is already on a morphine ggt at this time. As previously mentioned this is bedbound female with Afib, Pulmonary HTN, extensive lower extremity lymphedema, morbid OB, breast CA s/p lumpectomy, sacral ulcer, CAD who was [facility] for increased right leg swelling. She has severe pain, especially with movement in the bed. The family explain that she is from a jail. The patient was admitted to the ICU on 09/30 because of the R leg pain and swelling. The patient had cold toes and cold feet with no palpable pulses found. The patient had a CTA of the lower extremity showing there was in arterial obstruction there. She had overwhelming lymphedema and strong odor from the leg. She has had two surgical evaluation for potential amputation of the leg however because of her previous heart condition as well as the very large size of the leg, it would not be possible. She has had low blood pressure and on multiple IV abx, a bicarb ggt, and pressor medications. The family was informed from the beginning that the prognosis is poor. Last night on 10/05 she was changed over to DNR and DNI status. Today family present at bedside from 2 to 4 PM and she is now hospice status. [facility] came, Carrie Carmen [phone] came and spoke with family Patient will have hospice here at hospital There is already a morphine ggt at this time, ativan, and tylenol. Present on Admission - Present on Admission Any Indicators Present on Admission: Yes Urinary Catheter: Yes Decubitus Ulcer Present: Yes (sacral area, feet, legs) Review of Systems - Review of Systems Systems not reviewed;Unavailable: Acuity of Condition, Unstable Vital Signs, Dem entia, Uncooperative - Constitutional Constitutional: Fatigue, Malaise Additional comments: She is in pain Past Patient History - Infectious Disease Hx of Infectious Diseases: None - Tetanus Immunizations Tetanus Immunization: Unknown - Past Medical History & Family History Past Medical History?: Yes - Past Social History Smoking Status: Never Smoked Chewing Tobacco Use: No - CARDIAC Hx Atrial Fibrillation: Yes Hx Cardia Arrhythmia: Yes Hx Congestive Heart Failure: Yes Hx Hypertension: Yes Hx Peripheral Edema: Yes (+3 ble edema) - PULMONARY Hx Asthma: Yes Hx Bronchitis: Yes - NEUROLOGICAL Hx Neurological Disorder: Yes (right hand/arm tremors) - HEENT Hx HEENT Problems: (wears glasses) - RENAL Hx Chronic Kidney Disease: No - ENDOCRINE/METABOLIC Hx Endocrine Disorders: No - HEMATOLOGICAL/ONCOLOGICAL Hx Anemia: Yes - INTEGUMENTARY Hx Dermatological Problems: Yes Other/Comment: SWOLLEN LOWER EXTREMITIES. sacral ulcer= stage 4 - MUSCULOSKELETAL/RHEUMATOLOGICAL Hx Arthritis: Yes (knees) - GASTROINTESTINAL Hx Gastrointestinal Disorders: No - GENITOURINARY/GYNECOLOGICAL Hx Genitourinary Disorders: Yes Hx Incontinence: Yes Other/Comment: vaginal bleeding on and off x 14 yrs has stopped after hysterectomy in 2014 - PSYCHIATRIC Hx Depression: No Hx Substance Use: No - SURGICAL HISTORY Hx Appendectomy: Yes - ANESTHESIA Hx Anesthesia: Yes Hx Anesthesia Reactions: No Meds Allergies/Adverse Reactions: Allergies Allergy/AdvReac Type Severity Reaction Status Date / Time erythromycin base Allergy ANAPHYLAXIS Verified 09/30/18 14:15 Physical Exam - Constitutional Appears: Unkempt, Agitated, Confused, Chronically Ill Additional comments: She is confused right now, but she ask that we not touch her - ENT Exam ENT Exam: Mucous Membranes Moist Assessment & Plan - Assessment and Plan (Free Text) Plan: Patient is now Hospice care. Patient is a 77 yo bedbound female with Afib, LE lymphedema, morbid OB, breast CA s/p lumpectomy, sacral ulcer, CAD who was [facility] in by [facility] jail for increased right leg swelling. Patient found to be in septic shock with multiple infection sources- UTI, leg cellulitis, sacral ulcer, ?colitis. Also in Afib RVR. Plan: Sepsis shock secondary to right lower extremity ischemia, UTI, and sacral wounds 10/06: Now DNR and DNI. Nos Hospice care. She is on a morphine ggt at this time, also ativan and tyelonol. Family may bring whatever food Patient request 10/05: She remains full code at this time. WBC is decreased, however urine output remains low and platelets continue to decrease. She remains on the levophed and bicarb ggt 10/04: Later there will be a family meeting to discuss code status. Hopefully DNR and DNI and hospice care 10/03: WBC remains elevated. Abx changed to Meropenom, Vancomycin, Clindamycin, and Flagyl. Reordered blood and urine culture and procalcitonin. Her urine out put remains low. She remains on the levophed. 10/02: Yesterday afternoon spoke in person with both her children, Eli and Jack. They are aware of very poor prognosis and that because surgical intervention would not be possible that the the leg will get more necrosis and she would become more alter mental status. Currently still FULL code. I explained to them that it maybe in the patient's best interest to be DNR/DNI. Currently the blood cultures are negative, urine output 400, remains on two pressor medications and 3 IV abx. Remains on the IVF with bicarb ggt 10/01: The Blood pressure systolic was in the 90s with two pressors this morning, Norepi as well as Vasopressin. She is also on Albumin as well as IV Hydroc ortisone. There is IV with bicarb ggt. Currently abx are IV clindamycin, IV cefepime, and IV flagyl. She has a central line in the left IJ She may loose the right leg from amputation, however she is high risk due to her cardiac history. I explained this at length with the patient's daughter Eli over the phone this morning. Acute ischemia of RLE 10/06: Now hospice care, on morphine ggt, ativan, tyelenol. The heparin ggt is now discontinued 10/05: Yesterday family asked a second surgical opinion with pelonrd to the leg. Otherwise the lower extremity condition continues to be grave 10/03: Lower right extremity remains cool. The armijo and calf areas have been wrapped and the odor is much less than previous. She continues to have a lot of wheeping from the bullaue that she has 10/01: CTA done last night of the lower extremity showing there is an occlusion in the right lower extremity superficial femoral artery, the study also reported there was absent contrast opacification in the popliteal, antieror tibial, postieror arteries. Currently on heparin ggt. When I spoke with Eli, the patient's daughter, she explained that whilke at [facility] the patient was probably refusing a lot of medications including also the blood thinner/anitcoagulation medications. I made her aware that it maybe very difficult to due surgery as she is high risk. Chronic pain with opioid depndence 10/06: As mentioned previously, she is now DNR and DNI, now hospice care. There is a morphine ggt, dilaudid, tyelenol, ativan as needed. Family may bring whatever food patient request 10/04: Blood pressure is always low, if they decide on DNR and DNI and she is hospice then can consider higher doses 10/02: The fentayl patch was removed. Atrial fibrillation RVR 10/05: Remains in atrial fibrillation with HR sometimes in the 130s, this morning 90s 10/04: Remains in atrial fibrillation. At times her HR goes into 130s however mostly in the low 100s. Will probably get worse over time 10/02: Remains on the heparin ggt, HR on telemonitor in the 90s to low 100s. 10/01: Currently on heparin ggt, HR is currently in the 90s irregular As mentioned previously family explain that patient is likley non compliant with medications [place] [facility] Urinary tract infection 10/01: Last night, the UA: 3+ prot, 2+ LE, 1+ blood, 187 WBC, rare sedrick Pending cultures at this time. Currently on Cefepime, Flagyl, and Clindamycin Acute renal failure, metabolic acidosis 10/05: Urine out put overnight 260, remains on bicarb ggt 10/04: Creatine 1.7 urine out put remains low, 420 cc 10/03: Remains on IVF with bicarb ggt 10/02: Creatine this mornining 1.7 and urine output they say is 400 overnight She is on IVF with bicarb at this time 10/01: Creatine 1.6, urine output is 200 cc so far as of this morning RLE cellulitis and lymphedema 10/01: As mentioned above, there maybe lost of the limb, family has been informed. - Fentanyl patch 75 mcg Q72H Stage 4 sacral ulcer 10/02: Per discussion with the family these are deep open wounds. Wound care consulted Breast cancer s/p lumpectomy
[2018-10-06] MEDS: Dakin's Topical 0.25%-Half Strength (480 ml) TOP SCH (17:37)
[2018-10-06] MEDS: Sodium Chloride 0.9% 1,000 ML IV SCH (22:30)
--- NOTE | 2018-10-07 01:03 | CP.PCM.PN ---
<Colin Ramos - Last Filed: 10/07/18 01:04> Subjective - Date & Time of Evaluation Date of Evaluation: 10/07/18 Time of Evaluation: 01:02 - Subjective Subjective: HOSPITALIST SERVICE Pt on hopsice care, no specific requests at this time, pt is comfortable with current analgesics. Objective - Vital Signs/Intake and Output Vital Signs (last 24 hours): Temp Pulse Resp BP Pulse Ox 97 F L 119 H 13 95/71 L 100 10/06/18 17:51 10/06/18 17:51 10/06/18 17:51 10/06/18 17:51 10/06/18 17:51 - Medications Medications: Current Medications Acetaminophen (Tylenol 325mg Tab) 650 mg PO Q6 PRN PRN Reason: fever Hydromorphone HCl (Dilaudid) 1 mg IVP Q2H PRN PRN Reason: Pain, severe (8-10) Morphine Sulfate 100 mg/ (Sodium Chloride) 100 mls @ 3 mls/hr IV .Q24H PRN; Protocol PRN Reason: Pain, moderate (4-7) Last Admin: 10/06/18 16:43 Dose: 3 mls/hr Cefepime HCl 1 gm/ Dextrose 50 mls @ 100 mls/hr IVPB Q12H RAFAEL; Protocol Last Admin: 10/06/18 23:00 Dose: 100 mls/hr Sodium Chloride (Sodium Chloride 0.9%) 1,000 mls @ 25 mls/hr IV .Q24H RAFAEL Last Admin: 10/06/18 22:30 Dose: 25 mls/hr Lorazepam (Ativan) 1 mg IVP Q2H PRN PRN Reason: Anxiety Last Admin: 10/06/18 21:30 Dose: 1 mg Sodium Hypochlorite (Dakins Solution 0.25%) 0 ml TOP BID RAFAEL Last Admin: 10/06/18 17:37 Dose: 75 ml - Additional Findings Additional findings: - Constitutional Appears: Unkempt, Agitated, Confused, Chronically Ill Additional comments: She is confused right now, but she ask that we not touch her - ENT Exam ENT Exam: Mucous Membranes Moist Assessment and Plan - Assessment and Plan (Free Text) Assessment: Patient is now Hospice care. Patient is a 77 yo bedbound female with Afib, LE lymphedema, morbid OB, breast CA s/p lumpectomy, sacral ulcer, CAD who [facility] for increased right leg swelling. Patient found to be in septic shock with multiple infection sources- UTI, leg cellulitis, sacral ulcer, ?colitis. Also in Afib RVR. Plan: Sepsis shock secondary to right lower extremity ischemia, UTI, and sacral wounds 10/06: Now DNR and DNI. Nos Hospice care. She is on a morphine ggt at this time, also ativan and tyelonol. Family may bring whatever food Patient request 10/05: She remains full code at this time. WBC is decreased, however urine output remains low and platelets continue to decrease. She remains on the levophed and bicarb ggt 10/04: Later there will be a family meeting to discuss code status. Hopefully DNR and DNI and hospice care 10/03: WBC remains elevated. Abx changed to Meropenom, Vancomycin, Clindamycin, and Flagyl. Reordered blood and urine culture and procalcitonin. Her urine out put remains low. She remains on the levophed. 10/02: Yesterday afternoon spoke in person with both her children, Eli and Jack. They are aware of very poor prognosis and that because surgical intervention would not be possible that the the leg will get more necrosis and she would become more alter mental status. Currently still FULL code. I explained to them that it maybe in the patient's best interest to be DNR/DNI. Currently the blood cultures are negative, urine output 400, remains on two pressor medications and 3 IV abx. Remains on the IVF with bicarb ggt 10/01: The Blood pressure systolic was in the 90s with two pressors this morning, Norepi as well as Vasopressin. She is also on Albumin as well as IV Hydrocortisone. There is IV with bicarb ggt. Currently abx are IV clindamycin, IV cefepime, and IV flagyl. She has a central line in the left IJ She may loose the right leg from amputation, however she is high risk due to her cardiac history. I explained this at length with the patient's daughter Eli over the phone this morning. Acute ischemia of RLE 10/06: Now hospice care, on morphine ggt, ativan, tyelenol. The heparin ggt is now discontinued 10/05: Yesterday family asked a second surgical opinion with noe to the leg. Otherwise the lower extremity condition continues to be grave 10/03: Lower right extremity remains cool. The armijo and calf areas have been wrapped and the odor is much less than previous. She continues to have a lot of wheeping from the bullaue that she has 10/01: CTA done last night of the lower extremity showing there is an occlusion in the right lower extremity superficial femoral artery, the study also reported there was absent contrast opacification in the popliteal, antieror tibial, postieror arteries. Currently on heparin ggt. When I spoke with Eli, the patient's daughter, she explained that whilke at [facility] the patient was probably refusing a lot of medications including also the blood thinner/anitcoagulation medications. I made her aware that it maybe very difficult to due surgery as she is high risk. Chronic pain with opioid depndence 10/06: As mentioned previously, she is now DNR and DNI, now hospice care. There is a morphine ggt, dilaudid, tyelenol, ativan as needed. Family may bring whatever food patient request 10/04: Blood pressure is always low, if they decide on DNR and DNI and she is hospice then can consider higher doses 10/02: The fentayl patch was removed. Atrial fibrillation RVR 10/05: Remains in atrial fibrillation with HR sometimes in the 130s, this morning 90s 10/04: Remains in atrial fibrillation. At times her HR goes into 130s however mostly in the low 100s. Will probably get worse over time 10/02: Remains on the heparin ggt, HR on telemonitor in the 90s to low 100s. 10/01: Currently on heparin ggt, HR is currently in the 90s irregular As mentioned previously family explain that patient is likley non compliant with medications while at [facility]. Urinary tract infection 10/01: Last night, the UA: 3+ prot, 2+ LE, 1+ blood, 187 WBC, rare sedrick Pending cultures at this time. Currently on Cefepime, Flagyl, and Clindamycin Acute renal failure, metabolic acidosis 10/05: Urine out put overnight 260, remains on bicarb ggt 10/04: Creatine 1.7 urine out put remains low, 420 cc 10/03: Remains on IVF with bicarb ggt 10/02: Creatine this mornining 1.7 and urine output they say is 400 overnight She is on IVF with bicarb at this time 10/01: Creatine 1.6, urine output is 200 cc so far as of this morning RLE cellulitis and lymphedema 10/01: As mentioned above, there maybe lost of the limb, family has been informed. - Fentanyl patch 75 mcg Q72H Stage 4 sacral ulcer 10/02: Per discussion with the family these are deep open wounds. Wound care consulted Breast cancer s/p lumpectomy <Amando Garcia H - Last Filed: 10/07/18 09:08> Objective - Vital Signs/Intake and Output Vital Signs (last 24 hours): Temp Pulse Resp BP Pulse Ox 96.7 F L 97 H 10 L 105/64 98 10/07/18 08:00 10/07/18 08:00 10/07/18 08:00 10/07/18 08:00 10/07/18 08:00 Intake and Output: 10/07/18 10/07/18 06:59 18:59 Intake Total 409 Output Total 500 Balance -91 - Medications Medications: Current Medications Acetaminophen (Tylenol 325mg Tab) 650 mg PO Q6 PRN PRN Reason: fever Hydromorphone HCl (Dilaudid) 1 mg IVP Q2H PRN PRN Reason: Pain, severe (8-10) Cefepime HCl 1 gm/ Dextrose 50 mls @ 100 mls/hr IVPB Q12H RAFAEL; Protocol Last Admin: 10/06/18 23:00 Dose: 100 mls/hr Sodium Chloride (Sodium Chloride 0.9%) 1,000 mls @ 25 mls/hr IV .Q24H RAFAEL Last Admin: 10/06/18 22:30 Dose: 25 mls/hr Morphine Sulfate 100 mg/ (Sodium Chloride) 100 mls @ 0 mls/hr IV .Q0M PRN; Protocol PRN Reason: PER PROTOCOL Lorazepam (Ativan) 1 mg IVP Q2H PRN PRN Reason: Anxiety Last Admin: 10/06/18 21:30 Dose: 1 mg Sodium Hypochlorite (Dakins Solution 0.25%) 0 ml TOP BID RAFAEL Last Admin: 10/06/18 17:37 Dose: 75 ml Attending/Attestation - Attestation I have personally seen and examined this patient.: Yes I have fully participated in the care of the patient.: Yes I have reviewed all pertinent clinical information, including history, physical exam and plan: Yes Notes (Text): 10/07/18 09:05 Medical attending: Patient was seen and examined by me. Reviewed the above note by the resident - which I need to point out is a copy of what I have been writing while she was in the ICU. This morning she asleep and woke up when I called her name - then she went back to sleep. She appeared comfortable When I saw her the morphine ggt was at 4mg/hr Yesterday spoke with family at bedside. Appreciate ICU physician, Palliative Care Nurse, and Pastry Cook Helper discussing with the family these past few days thank you Amando
[2018-10-07] MEDS: Dakin's Topical 0.25%-Half Strength (480 ml) TOP SCH ×2 (09:15→17:58)
[2018-10-07] MEDS: Sodium Chloride 0.9% 1,000 ML IV SCH (22:15)
--- NOTE | 2018-10-08 08:04 | CP.PCM.PN ---
<Roxann Cha - Last Filed: 10/08/18 21:11> Subjective - Date & Time of Evaluation Date of Evaluation: 10/08/18 Time of Evaluation: 08:03 - Subjective Subjective: Progress Note for Hospitalist service Patient seen and examined at bedside. She is sleeping comfortably. Patient reportedly complained of pain earlier today and received Dilaudid. She is on Hospice Care. Objective - Vital Signs/Intake and Output Vital Signs (last 24 hours): Temp Pulse Resp BP Pulse Ox 97.2 F L 101 H 12 96/60 L 100 10/08/18 04:00 10/08/18 04:00 10/08/18 04:00 10/08/18 04:00 10/08/18 04:00 Intake and Output: 10/08/18 10/08/18 06:59 18:59 Intake Total 348 Output Total 300 Balance 48 - Medications Medications: Current Medications Acetaminophen (Tylenol 325mg Tab) 650 mg PO Q6 PRN PRN Reason: fever Hydromorphone HCl (Dilaudid) 1 mg IVP Q2H PRN PRN Reason: Pain, severe (8-10) Cefepime HCl 1 gm/ Dextrose 50 mls @ 100 mls/hr IVPB Q12H RAFAEL; Protocol Last Admin: 10/07/18 09:47 Dose: 100 mls/hr Sodium Chloride (Sodium Chloride 0.9%) 1,000 mls @ 25 mls/hr IV .Q24H RAFAEL Last Admin: 10/07/18 22:15 Dose: 25 mls/hr Morphine Sulfate 100 mg/ (Sodium Chloride) 100 mls @ 0 mls/hr IV .Q0M PRN; Protocol PRN Reason: PER PROTOCOL Last Admin: 10/07/18 13:03 Dose: 4 mls/hr Lorazepam (Ativan) 1 mg IVP Q2H PRN PRN Reason: Anxiety Last Admin: 10/06/18 21:30 Dose: 1 mg Sodium Hypochlorite (Dakins Solution 0.25%) 0 ml TOP BID RAFAEL Last Admin: 10/07/18 17:58 Dose: 200 ml - Constitutional Appears: Other (Patient is sleeping comfortably. ) - Head Exam Head Exam: ATRAUMATIC, NORMOCEPHALIC - Eye Exam Eye Exam: EOMI, PERRL - ENT Exam ENT Exam: Mucous Membranes Dry - Respiratory Exam Respiratory Exam: Decreased Breath Sounds. absent: Rhonchi, Wheezes, Stridor - Cardiovascular Exam Cardiovascular Exam: Irregular Rhythm (Irregularly irregular ), +S1, +S2. absent: Gallop, Rubs, Murmur - GI/Abdominal Exam GI & Abdominal Exam: Soft, Normal Bowel Sounds. absent: Tenderness - Extremities Exam Additional comments: Marked bilateral lymphedema - Neurological Exam Neurological Exam: Awake Assessment and Plan - Assessment and Plan (Free Text) Assessment: 77 year bedbound female with Afib, LE lymphedema, morbid OB, breast CA s/p lumpectomy, sacral ulcer, CAD who was brought in by her custodial for increased right leg swelling. Patient found to be in septic shock with multiple infection sources including UTI, leg cellulitis, sacral ulcer, possible colitis. Also in Afib RVR. Currently hospice - DNR/DNI. Plan: Septic shock secondary to right lower extremity ischemia, UTI and sacral wounds Currently DNR/DNI and under hospice care. Now on Morphine drip at 5cc/hr NS @ 25cc/hr IV Tylenol 650mg PO Q6 PRN Dilaudid 1mg Q2 PRN Ativan 1mg Q2 PRN BP 104/67 with HR 114 Metronidazole topical recommended by Hospice not on formulary Acute ischemia of RLE Currently on Hospice care Continue on Morphine drip, Ativan and Tylenol Hospice note recommended Metronidazole powder to decrease odor from right lower extremity however not on formulary Chronic pain with opioid dependence Now Hospice DNR/DNI Morphine, Ativan, Dilaudid, Tylenol Afib with RVR Comfort measures only at this time since patient is on hospice History of breast cancer status post lumpectomy Comfort measures only as patient is currently hospice Case discussed with Dr. Blue Cha, PGY1 <Chelsey Mcarthur - Last Filed: 10/09/18 17:02> Objective - Vital Signs/Intake and Output Vital Signs (last 24 hours): Temp Pulse Resp BP Pulse Ox 97.7 F 139 H 12 92/57 L 95 10/09/18 12:00 10/09/18 12:00 10/09/18 12:00 10/09/18 12:00 10/09/18 12:00 Intake and Output: 10/09/18 10/09/18 06:59 18:59 Intake Total 375 330 Output Total 400 150 Balance -25 180 - Medications Medications: Current Medications Acetaminophen (Tylenol 325mg Tab) 650 mg PO Q6 PRN PRN Reason: fever Sodium Chloride (Sodium Chloride 0.9%) 1,000 mls @ 25 mls/hr IV .Q24H RAFAEL Last Admin: 10/08/18 23:06 Dose: Not Given Morphine Sulfate 100 mg/ (Sodium Chloride) 100 mls @ 5 mls/hr IV .Q20H PRN; Protocol PRN Reason: Pain, severe (8-10) Last Admin: 10/09/18 08:05 Dose: 5 mls/hr Lorazepam (Ativan) 1 mg IVP Q2H PRN PRN Reason: Anxiety Last Admin: 10/09/18 05:59 Dose: 1 mg Sodium Hypochlorite (Dakins Solution 0.25%) 0 ml TOP BID RAFAEL Last Admin: 10/09/18 11:48 Dose: 200 ml Attending/Attestation - Attestation I have personally seen and examined this patient.: Yes I have fully participated in the care of the patient.: Yes I have reviewed all pertinent clinical information, including history, physical exam and plan: Yes Notes (Text): seen and examined by me this morning. patient was sleeping.Patient had little liquids this morning. 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 she is on morphine drip Patient will be transferred to a floor once bed is ready continue morphine spoke to her son
[2018-10-08] MEDS: Dakin's Topical 0.25%-Half Strength (480 ml) TOP SCH ×2 (09:30→17:25)
[2018-10-08] MEDS: Morphine 100 MG in Sodium Chloride 0.9% 90 ML IV PRN ×2 (13:02→13:05)
[2018-10-08] MEDS: Sodium Chloride 0.9% 1,000 ML IV SCH (23:06)
[2018-10-09] MEDS: Morphine 100 MG in Sodium Chloride 0.9% 90 ML IV PRN (08:05)
--- NOTE | 2018-10-09 11:04 | CP.PCM.PN ---
Subjective - Date & Time of Evaluation Date of Evaluation: 10/09/18 Time of Evaluation: 11:01 - Subjective Subjective: PGY-1 Medicine progress note for Dr. Mcarthur Patient was seen and examined at bedside. No acute events overnight. Patient seems lethargic today. Patient on Morphine drip. Objective - Vital Signs/Intake and Output Vital Signs (last 24 hours): Temp Pulse Resp BP Pulse Ox 97.5 F L 138 H 8 L 107/55 L 98 10/09/18 04:00 10/09/18 04:00 10/09/18 04:00 10/09/18 04:00 10/09/18 04:00 Intake and Output: 10/09/18 10/09/18 06:59 18:59 Intake Total 375 Output Total 400 Balance -25 - Medications Medications: Current Medications Acetaminophen (Tylenol 325mg Tab) 650 mg PO Q6 PRN PRN Reason: fever Sodium Chloride (Sodium Chloride 0.9%) 1,000 mls @ 25 mls/hr IV .Q24H RAFAEL Last Admin: 10/08/18 23:06 Dose: Not Given Morphine Sulfate 100 mg/ (Sodium Chloride) 100 mls @ 5 mls/hr IV .Q20H PRN; Protocol PRN Reason: Pain, severe (8-10) Last Admin: 10/09/18 08:05 Dose: 5 mls/hr Lorazepam (Ativan) 1 mg IVP Q2H PRN PRN Reason: Anxiety Last Admin: 10/09/18 05:59 Dose: 1 mg Sodium Hypochlorite (Dakins Solution 0.25%) 0 ml TOP BID RAFAEL Last Admin: 10/08/18 17:25 Dose: 200 ml - Additional Findings Additional findings: - Constitutional Appears: Other (Patient is sleeping comfortably. ) - Head Exam Head Exam: ATRAUMATIC, NORMOCEPHALIC - Eye Exam Eye Exam: EOMI, PERRL - ENT Exam ENT Exam: Mucous Membranes Dry - Respiratory Exam Respiratory Exam: Decreased Breath Sounds. absent: Rhonchi, Wheezes, Stridor - Cardiovascular Exam Cardiovascular Exam: Irregular Rhythm (Irregularly irregular ), +S1, +S2. absent: Gallop, Rubs, Murmur - GI/Abdominal Exam GI & Abdominal Exam: Soft, Normal Bowel Sounds. absent: Tenderness - Extremities Exam Additional comments: Marked bilateral lymphedema Assessment and Plan - Assessment and Plan (Free Text) Assessment: 77 year bedbound female with Afib, LE lymphedema, morbid OB, breast CA s/p lumpectomy, sacral ulcer, CAD who [facility] for increased right leg swelling. Currently hospice - DNR/DNI. Plan: Chronic pain with opioid dependence - Patient under Hospice care - Continue Morphine drip - Ativan 1mg Q2H PRN - Tylenol PRN History of breast cancer status post lumpectomy - Comfort measures only Code status: DNR/DNI- Patient under Hospice care. Patient was seen and case was discussed with attending, Dr. Mcarthur. Frank Parrish, PGY-1
[2018-10-09] MEDS: Dakin's Topical 0.25%-Half Strength (480 ml) TOP SCH ×2 (11:48→18:59)
[2018-10-09] MEDS: Sodium Chloride 0.9% 1,000 ML IV SCH ×2 (20:00→22:51)
[2018-10-10] MEDS: Morphine 100 MG in Sodium Chloride 0.9% 90 ML IV PRN (04:00)
--- NOTE | 2018-10-10 07:08 | CP.PCM.PN ---
<Roxann Cha - Last Filed: 10/10/18 20:42> Subjective - Date & Time of Evaluation Date of Evaluation: 10/10/18 Time of Evaluation: 07:08 - Subjective Subjective: Progress Note for Dr. Mcarthur Patient seen and examined at bedside. She states she would like more pain medication. She has no other complaints. She remains on Hospice care. Objective - Vital Signs/Intake and Output Vital Signs (last 24 hours): Temp Pulse Resp BP Pulse Ox 98.0 F 121 H 10 L 93/56 L 95 10/10/18 04:00 10/10/18 04:00 10/10/18 04:00 10/10/18 04:00 10/10/18 04:00 Intake and Output: 10/10/18 10/10/18 06:59 18:59 Intake Total 330 Output Total 400 Balance -70 - Medications Medications: Current Medications Acetaminophen (Tylenol 325mg Tab) 650 mg PO Q6 PRN PRN Reason: fever Sodium Chloride (Sodium Chloride 0.9%) 1,000 mls @ 25 mls/hr IV .Q24H RAFAEL Last Admin: 10/09/18 22:51 Dose: Not Given Morphine Sulfate 100 mg/ (Sodium Chloride) 100 mls @ 5 mls/hr IV .Q20H PRN; Protocol PRN Reason: Pain, severe (8-10) Last Admin: 10/10/18 04:00 Dose: 5 mls/hr Lorazepam (Ativan) 1 mg IVP Q2H PRN PRN Reason: Anxiety Last Admin: 10/09/18 05:59 Dose: 1 mg Sodium Hypochlorite (Dakins Solution 0.25%) 0 ml TOP BID RAFAEL Last Admin: 10/09/18 18:59 Dose: 200 ml - Constitutional Appears: Chronically Ill - Head Exam Head Exam: ATRAUMATIC, NORMOCEPHALIC - Eye Exam Eye Exam: EOMI, PERRL - ENT Exam ENT Exam: Mucous Membranes Dry - Respiratory Exam Respiratory Exam: Decreased Breath Sounds. absent: Rhonchi, Wheezes, Respiratory Distress, Stridor - Cardiovascular Exam Cardiovascular Exam: Irregular Rhythm, +S1, +S2 - GI/Abdominal Exam GI & Abdominal Exam: Soft, Normal Bowel Sounds. absent: Tenderness - Extremities Exam Additional comments: Marked bilateral lymphedema - Neurological Exam Neurological Exam: Awake Assessment and Plan - Assessment and Plan (Free Text) Assessment: 77 year bedbound female with Afib, LE lymphedema, morbid OB, breast CA s/p lumpectomy, sacral ulcer, CAD who was brought in by her [facility] for inc reased right leg swelling. Patient found to be in septic shock with multiple infection sources including UTI, leg cellulitis, sacral ulcer, possible colitis. Also in Afib RVR. Currently hospice - DNR/DNI. Plan: Septic shock secondary to right lower extremity ischemia, UTI and sacral wounds Currently DNR/DNI and under hospice care. Now on Morphine drip at 5cc/hr NS @ 25cc/hr IV Tylenol 650mg PO Q6 PRN Dilaudid 1mg Q2 PRN Ativan 1mg Q2 PRN Scopolamine patch 1 patch Q3 days Atropine sulfate eye drops Acute ischemia of RLE Currently on Hospice care Continue on Morphine drip, Ativan and Tylenol Scopolamine patch 1 patch Q3 days Atropine sulfate eye drops Chronic pain with opioid dependence Now Hospice DNR/DNI Morphine, Ativan, Dilaudid, Tylenol Afib with RVR Comfort measures only at this time since patient is on hospice History of breast cancer status post lumpectomy Comfort measures only as patient is currently hospice Case discussed with Dr. Blue Cha, PGY1 <Chelsey Mcarthur - Last Filed: 10/11/18 07:51> Objective - Vital Signs/Intake and Output Vital Signs (last 24 hours): Temp Pulse Resp BP Pulse Ox 98.6 F 97 H 20 88/55 L 94 L 10/10/18 23:15 10/10/18 23:15 10/10/18 23:15 10/10/18 23:15 10/10/18 23:15 Intake and Output: 10/11/18 10/11/18 06:59 18:59 Output Total 400 Balance -400 - Medications Medications: Current Medications Acetaminophen (Tylenol 325mg Tab) 650 mg PO Q6 PRN PRN Reason: fever Atropine Sulfate (Atropisol 1% Ophth) 0 ml SL Q4H PRN PRN Reason: For Secretions Sodium Chloride (Sodium Chloride 0.9%) 1,000 mls @ 25 mls/hr IV .Q24H [facility] Last Admin: 10/10/18 23:00 Dose: Not Given Morphine Sulfate 100 mg/ (Sodium Chloride) 100 mls @ 5 mls/hr IV .Q20H PRN; Protocol PRN Reason: Pain, severe (8-10) Last Admin: 10/11/18 00:00 Dose: 5 mls/hr Lorazepam (Ativan) 1 mg IVP Q2H PRN PRN Reason: Anxiety Last Admin: 10/09/18 05:59 Dose: 1 mg Scopolamine (Transderm-Scop) 1 patch TD Q3D RAFAEL Last Admin: 10/10/18 19:45 Dose: 1 patch Sodium Hypochlorite (Dakins Solution 0.25%) 0 ml TOP BID RAFAEL Last Admin: 10/10/18 19:15 Dose: Not Given Attending/Attestation - Attestation I have personally seen and examined this patient.: Yes I have fully participated in the care of the patient.: Yes I have reviewed all pertinent clinical information, including history, physical exam and plan: Yes Notes (Text): Awake and responsive,comfortable.c/o pain. Spoke to Hospice care visited her. continue morphine drip ,ativan as needed.
[2018-10-10] MEDS: Dakin's Topical 0.25%-Half Strength (480 ml) TOP SCH (19:15)
[2018-10-10] MEDS ORDERED: Atropine 1% Ophth Soln (15 ml) SL PRN (19:23)
[2018-10-10] MEDS: Sodium Chloride 0.9% 1,000 ML IV SCH (23:00)
--- NOTE | 2018-10-11 07:08 | CP.PCM.PN ---
<Roxann Cha - Last Filed: 10/11/18 12:51> Subjective - Date & Time of Evaluation Date of Evaluation: 10/11/18 Time of Evaluation: 07:08 - Subjective Subjective: Progress Note for Hospitalist service Patient seen and examined at bedside. She is complaining of persistent pain in her lower extremities. She remains on Hospice care. Podiatry at bedside changing lower extremity dressings. Objective - Vital Signs/Intake and Output Vital Signs (last 24 hours): Temp Pulse Resp BP Pulse Ox 98.6 F 97 H 20 88/55 L 94 L 10/10/18 23:15 10/10/18 23:15 10/10/18 23:15 10/10/18 23:15 10/10/18 23:15 Intake and Output: 10/11/18 10/11/18 06:59 18:59 Output Total 400 Balance -400 - Medications Medications: Current Medications Acetaminophen (Tylenol 325mg Tab) 650 mg PO Q6 PRN PRN Reason: fever Atropine Sulfate (Atropisol 1% Oph) 0 ml SL Q4H PRN PRN Reason: For Secretions Sodium Chloride (Sodium Chloride 0.9%) 1,000 mls @ 25 mls/hr IV .Q24H [facility] Last Admin: 10/10/18 23:00 Dose: Not Given Morphine Sulfate 100 mg/ (Sodium Chloride) 100 mls @ 5 mls/hr IV .Q20H PRN; Protocol PRN Reason: Pain, severe (8-10) Last Admin: 10/11/18 00:00 Dose: 5 mls/hr Lorazepam (Ativan) 1 mg IVP Q2H PRN PRN Reason: Anxiety Last Admin: 10/09/18 05:59 Dose: 1 mg Scopolamine (Transderm-Scop) 1 patch TD Q3D [facility] Last Admin: 10/10/18 19:45 Dose: 1 patch Sodium Hypochlorite (Dakins Solution 0.25%) 0 ml TOP BID [facility] Last Admin: 10/10/18 19:15 Dose: Not Given - Constitutional Appears: Chronically Ill - Head Exam Head Exam: ATRAUMATIC, NORMOCEPHALIC - Eye Exam Eye Exam: EOMI, PERRL - ENT Exam ENT Exam: Mucous Membranes Dry - Respiratory Exam Respiratory Exam: Decreased Breath Sounds. absent: Rales, Rhonchi, Wheezes, Stridor - Cardiovascular Exam Cardiovascular Exam: Irregular Rhythm, +S1, +S2 - GI/Abdominal Exam GI & Abdominal Exam: Soft, Normal Bowel Sounds. absent: Guarding, Rigid, Tenderness - Extremities Exam Additional comments: Marked bilateral lymphedema, chronic wounds on right lower extremities with discharge, malodor - Neurological Exam Neurological Exam: Awake Assessment and Plan - Assessment and Plan (Free Text) Assessment: 77 year bedbound female with Afib, LE lymphedema, morbid OB, breast CA s/p lumpectomy, sacral ulcer, CAD who was brought in by her custodial for increased right leg swelling. Patient found to be in septic shock with multiple infection sources including UTI, leg cellulitis, sacral ulcer, possible colitis. Also in Afib RVR. Currently hospice - DNR/DNI. Plan: Septic shock secondary to right lower extremity ischemia, UTI and sacral wounds Currently DNR/DNI and under hospice care. Now on Morphine drip at 5cc/hr NS @ 25cc/hr IV Tylenol 650mg PO Q6 PRN Dilaudid 1mg Q2 PRN Ativan 1mg Q2 PRN Scopolamine patch 1 patch Q3 days Atropine sulfate eye drops Acute ischemia of RLE Currently on Hospice care Continue on Morphine drip, Ativan and Tylenol Scopolamine patch 1 patch Q3 days Atropine sulfate eye drops Dressings on lower extremities changed Chronic pain with opioid dependence Now Hospice DNR/DNI Morphine, Ativan, Dilaudid, Tylenol Afib with RVR Comfort measures only at this time since patient is on hospice History of breast cancer status post lumpectomy Comfort measures only as patient is currently hospice Case discussed with Dr. Blue Cha, PGY1 <Chelsey Mcarthur - Last Filed: 10/11/18 13:04> Objective - Vital Signs/Intake and Output Vital Signs (last 24 hours): Temp Pulse Resp BP Pulse Ox 98.7 F 68 18 116/41 L 90 L 10/11/18 07:56 10/11/18 07:56 10/11/18 07:56 10/11/18 07:56 10/11/18 07:56 Intake and Output: 10/11/18 10/11/18 06:59 18:59 Output Total 400 Balance -400 - Medications Medications: Current Medications Acetaminophen (Tylenol 325mg Tab) 650 mg PO Q6 PRN PRN Reason: fever Atropine Sulfate (Atropisol 1% Ophth) 0 ml SL Q4H PRN PRN Reason: For Secretions Sodium Chloride (Sodium Chloride 0.9%) 1,000 mls @ 25 mls/hr IV .Q24H [facility] Last Admin: 10/10/18 23:00 Dose: Not Given Morphine Sulfate 100 mg/ (Sodium Chloride) 100 mls @ 5 mls/hr IV .Q20H PRN; Protocol PRN Reason: Pain, severe (8-10) Last Admin: 10/11/18 00:00 Dose: 5 mls/hr Lorazepam (Ativan) 1 mg IVP Q2H PRN PRN Reason: Anxiety Last Admin: 10/09/18 05:59 Dose: 1 mg Scopolamine (Transderm-Scop) 1 patch TD Q3D [facility] Last Admin: 10/10/18 19:45 Dose: 1 patch Sodium Hypochlorite (Dakins Solution 0.25%) 0 ml TOP BID [facility] Last Admin: 10/11/18 11:07 Dose: 1 ml Attending/Attestation - Attestation I have personally seen and examined this patient.: Yes I have fully participated in the care of the patient.: Yes I have reviewed all pertinent clinical information, including history, physical exam and plan: Yes Notes (Text): Patient was crying in pain during wound dressing change,Dilaudid 1mg one time dose ordered 10/11/18 13:02
[2018-10-11] MEDS: Dakin's Topical 0.25%-Half Strength (480 ml) TOP SCH ×2 (11:07→18:31)
[2018-10-11] MEDS ORDERED: HYDROmorphone 1 mg/ml ISec IVP STA (11:46)
[2018-10-11] MEDS: Morphine 100 MG in Sodium Chloride 0.9% 90 ML IV PRN ×2 (19:53)
--- NOTE | 2018-10-12 06:52 | CP.PCM.PN ---
<Roxann Cha - Last Filed: 10/12/18 16:32> Subjective - Date & Time of Evaluation Date of Evaluation: 10/12/18 Time of Evaluation: 06:52 - Subjective Subjective: Progress Note for Dr. Mcarthur Patient seen and examined at bedside. She is complaining of pain of her lower extremities but is eager to eat food. She remains on Hospice. Objective - Vital Signs/Intake and Output Vital Signs (last 24 hours): Temp Pulse Resp BP Pulse Ox 98.5 F 108 H 20 130/84 97 10/11/18 23:10 10/11/18 23:10 10/11/18 23:10 10/11/18 23:10 10/11/18 23:10 Intake and Output: 10/11/18 10/12/18 18:59 06:59 Output Total 200 300 Balance -200 -300 - Medications Medications: Current Medications Acetaminophen (Tylenol 325mg Tab) 650 mg PO Q6 PRN PRN Reason: fever Atropine Sulfate (Atropisol 1% Ophth) 0 ml SL Q4H PRN PRN Reason: For Secretions Hydromorphone HCl (Dilaudid) 2 mg IVP Q4H PRN PRN Reason: Pain, severe (8-10) Sodium Chloride (Sodium Chloride 0.9%) 1,000 mls @ 25 mls/hr IV .Q24H [facility] Last Admin: 10/10/18 23:00 Dose: Not Given Morphine Sulfate 100 mg/ (Sodium Chloride) 100 mls @ 6 mls/hr IV .[id number] PRN; Protocol PRN Reason: Pain, severe (8-10) Last Admin: 10/11/18 19:53 Dose: 6 mls/hr Lorazepam (Ativan) 1 mg IVP Q2H PRN PRN Reason: Anxiety Last Admin: 10/09/18 05:59 Dose: 1 mg Metronidazole (Flagyl) 500 mg PO BID [facility]; Protocol Last Admin: 10/11/18 18:56 Dose: 500 mg Scopolamine (Transderm-Scop) 1 patch TD Q3D [facility] Last Admin: 10/10/18 19:45 Dose: 1 patch Sodium Hypochlorite (Dakins Solution 0.25%) 0 ml TOP BID [facility] Last Admin: 10/11/18 18:31 Dose: Not Given - Constitutional Appears: Chronically Ill - Head Exam Head Exam: ATRAUMATIC, NORMOCEPHALIC - Eye Exam Eye Exam: EOMI, PERRL - ENT Exam ENT Exam: Mucous Membranes Dry - Respiratory Exam Respiratory Exam: Decreased Breath Sounds. absent: Rales, Rhonchi, Wheezes, Stridor - Cardiovascular Exam Cardiovascular Exam: Irregular Rhythm, +S1, +S2 - GI/Abdominal Exam GI & Abdominal Exam: Soft, Normal Bowel Sounds. absent: Guarding, Rigid, Tenderness - Extremities Exam Additional comments: Marked bilateral lymphedema Chronic wound on right lower leg with discharge and malodor - Neurological Exam Neurological Exam: Awake Assessment and Plan - Assessment and Plan (Free Text) Assessment: 77 year bedbound female with Afib, LE lymphedema, morbid OB, breast CA s/p lumpectomy, sacral ulcer, CAD who was [facility] for in creased right leg swelling. Patient found to be in septic shock with multiple infection sources including UTI, leg cellulitis, sacral ulcer, possible colitis. Also in Afib RVR. Currently hospice - DNR/DNI. Plan: Septic shock secondary to right lower extremity ischemia, UTI and sacral wounds Currently DNR/DNI and under hospice care. Morphine drip increased to 8cc/hr IV NS @ 25cc/hr IV Tylenol 650mg PO Q6 PRN Dilaudid 2mg Q4 PRN Ativan 1mg Q2 PRN Scopolamine patch 1 patch Q3 days Atropine sulfate eye drops Acute ischemia of RLE Currently on Hospice care Continue on Morphine drip, Ativan and Tylenol Scopolamine patch 1 patch Q3 days Atropine sulfate eye drops Flagyl 500mg PO crush and apply to lower extremities for odor control Dressings on lower extremities changed Chronic pain with opioid dependence Now Hospice DNR/DNI Morphine, Ativan, Dilaudid, Tylenol Afib with RVR Comfort measures only at this time since patient is on hospice History of breast cancer status post lumpectomy Comfort measures only as patient is currently hospice Case discussed with Dr. Blue Cha, PGY1 <Chelsey Mcarthur - Last Filed: 10/12/18 17:01> Objective - Vital Signs/Intake and Output Vital Signs (last 24 hours): Temp Pulse Resp BP Pulse Ox 99.4 F 84 18 108/73 97 10/12/18 07:00 10/12/18 07:00 10/12/18 07:00 10/12/18 07:00 10/11/18 23:10 Intake and Output: 10/12/18 10/12/18 06:59 18:59 Output Total 300 110 Balance -300 -110 - Medications Medications: Current Medications Acetaminophen (Tylenol 325mg Tab) 650 mg PO Q6 PRN PRN Reason: fever Atropine Sulfate (Atropisol 1% Ophth) 0 ml SL Q4H PRN PRN Reason: For Secretions Hydromorphone HCl (Dilaudid) 2 mg IVP Q4H PRN PRN Reason: Pain, severe (8-10) Last Admin: 10/12/18 12:02 Dose: 2 mg Sodium Chloride (Sodium Chloride 0.9%) 1,000 mls @ 25 mls/hr IV .Q24H [facility] Last Admin: 10/10/18 23:00 Dose: Not Given Morphine Sulfate 100 mg/ (Sodium Chloride) 100 mls @ 8 mls/hr IV .[id number] PRN; Protocol PRN Reason: Pain, severe (8-10) Last Admin: 10/12/18 16:53 Dose: 8 mls/hr Lorazepam (Ativan) 1 mg IVP Q2H PRN PRN Reason: Anxiety Last Admin: 10/09/18 05:59 Dose: 1 mg Metronidazole (Flagyl) 500 mg PO BID [facility]; Protocol Last Admin: 10/12/18 12:21 Dose: 500 mg Scopolamine (Transderm-Scop) 1 patch TD Q3D [facility] Last Admin: 10/10/18 19:45 Dose: 1 patch Sodium Hypochlorite (Dakins Solution 0.25%) 0 ml TOP BID [facility] Last Admin: 10/12/18 12:22 Dose: 0.25 ml Attending/Attestation - Attestation I have personally seen and examined this patient.: Yes I have fully participated in the care of the patient.: Yes I have reviewed all pertinent clinical information, including history, physical exam and plan: Yes Notes (Text): continue comfort care,lying without discomfort
[2018-10-12] MEDS: Dakin's Topical 0.25%-Half Strength (480 ml) TOP SCH ×3 (10:33→18:45)
[2018-10-12] MEDS: Morphine 100 MG in Sodium Chloride 0.9% 90 ML IV PRN ×2 (12:02→16:53)
[2018-10-12] MEDS: HYDROmorphone 1 mg/ml ISec IVP PRN (12:02)
[2018-10-13] MEDS: Morphine 100 MG in Sodium Chloride 0.9% 90 ML IV PRN ×2 (00:42→14:37)
[2018-10-13] MEDS: Sodium Chloride 0.9% 1,000 ML IV SCH (00:43)
--- NOTE | 2018-10-13 00:53 | CP.PCM.PN ---
<Hernandez Escobar - Last Filed: 10/13/18 00:52> Subjective - Date & Time of Evaluation Date of Evaluation: 10/13/18 Time of Evaluation: 00:52 - Subjective Subjective: Progress Note for Dr. Mcarthur Patient seen and examined at bedside. Patient complaining of lower extremity pain She remains on Hospice. Objective - Vital Signs/Intake and Output Vital Signs (last 24 hours): Temp Pulse Resp BP Pulse Ox 97.5 F L 125 H 20 106/62 98 10/12/18 23:00 10/12/18 23:00 10/12/18 23:00 10/12/18 23:00 10/12/18 23:00 Intake and Output: 10/12/18 10/13/18 18:59 06:59 Intake Total 33 Output Total 110 Balance -110 33 - Medications Medications: Current Medications Acetaminophen (Tylenol 325mg Tab) 650 mg PO Q6 PRN PRN Reason: fever Atropine Sulfate (Atropisol 1% Ophth) 0 ml SL Q4H PRN PRN Reason: For Secretions Hydromorphone HCl (Dilaudid) 2 mg IVP Q4H PRN PRN Reason: Pain, severe (8-10) Last Admin: 10/12/18 12:02 Dose: 2 mg Morphine Sulfate 100 mg/ (Sodium Chloride) 100 mls @ 8 mls/hr IV .[id number] PRN; Protocol PRN Reason: Pain, severe (8-10) Last Admin: 10/13/18 00:42 Dose: 8 mls/hr Lorazepam (Ativan) 1 mg IVP Q2H PRN PRN Reason: Anxiety Last Admin: 10/09/18 05:59 Dose: 1 mg Metronidazole (Flagyl) 500 mg PO BID [facility]; Protocol Last Admin: 10/12/18 12:21 Dose: 500 mg Scopolamine (Transderm-Scop) 1 patch TD Q3D [facility] Last Admin: 10/10/18 19:45 Dose: 1 patch Sodium Hypochlorite (Dakins Solution 0.25%) 0 ml TOP BID [facility] Last Admin: 10/12/18 12:22 Dose: 0.25 ml - Labs Labs: - Constitutional Appears: Chronically Ill - Head Exam Head Exam: ATRAUMATIC, NORMOCEPHALIC - Eye Exam Eye Exam: EOMI, PERRL - ENT Exam ENT Exam: Mucous Membranes Dry - Respiratory Exam Respiratory Exam: Decreased Breath Sounds. absent: Rales, Rhonchi, Wheezes, Stridor - Cardiovascular Exam Cardiovascular Exam: Irregular Rhythm, +S1, +S2 - GI/Abdominal Exam GI & Abdominal Exam: Soft, Normal Bowel Sounds. absent: Guarding, Rigid, Tenderness - Extremities Exam Additional comments: Marked bilateral lymphedema Chronic wound on right lower leg with discharge and malodor - Neurological Exam Neurological Exam: Awake Assessment and Plan - Assessment and Plan (Free Text) Assessment: 77 year bedbound female with Afib, LE lymphedema, morbid OB, breast CA s/p lumpectomy, sacral ulcer, CAD who was brought in by her [facility] for increased right leg swelling. Patient found to be in septic shock with multiple infection sources including UTI, leg cellulitis, sacral ulcer, possible colitis. Also in Afib RVR. Currently hospice - DNR/DNI. Plan: Septic shock secondary to right lower extremity ischemia, UTI and sacral wounds Currently DNR/DNI and under hospice care. Morphine drip increased to 8cc/hr IV NS @ 25cc/hr IV Tylenol 650mg PO Q6 PRN Dilaudid 2mg Q4 PRN Ativan 1mg Q2 PRN Scopolamine patch 1 patch Q3 days Atropine sulfate eye drops Acute ischemia of RLE Currently on Hospice care Continue on Morphine drip, Ativan and Tylenol Scopolamine patch 1 patch Q3 days Atropine sulfate eye drops Flagyl 500mg PO crush and apply to lower extremities for odor control Dressings on lower extremities changed Chronic pain with opioid dependence Now Hospice DNR/DNI Morphine, Ativan, Dilaudid, Tylenol Afib with RVR Comfort measures only at this time since patient is on hospice History of breast cancer status post lumpectomy Comfort measures only as patient is currently hospice Case discussed with Dr. Blue Escobar, PGY1 <Amando Garcia - Last Filed: 10/13/18 10:28> Objective - Vital Signs/Intake and Output Vital Signs (last 24 hours): Temp Pulse Resp BP Pulse Ox 98.1 F 128 H 12 111/78 97 10/13/18 07:55 10/13/18 07:55 10/13/18 07:55 10/13/18 07:55 10/13/18 07:55 Intake and Output: 10/13/18 10/13/18 06:59 18:59 Intake Total 396 Output Total 150 Balance 246 - Medications Medications: Current Medications Acetaminophen (Tylenol 325mg Tab) 650 mg PO Q6 PRN PRN Reason: fever Atropine Sulfate (Atropisol 1% Ophth) 0 ml SL Q4H PRN PRN Reason: For Secretions Hydromorphone HCl (Dilaudid) 2 mg IVP Q4H PRN PRN Reason: Pain, severe (8-10) Last Admin: 10/12/18 12:02 Dose: 2 mg Morphine Sulfate 100 mg/ (Sodium Chloride) 100 mls @ 8 mls/hr IV .[id number] PRN; Protocol PRN Reason: Pain, severe (8-10) Last Admin: 10/13/18 00:42 Dose: 8 mls/hr Lorazepam (Ativan) 1 mg IVP Q2H PRN PRN Reason: Anxiety Last Admin: 10/09/18 05:59 Dose: 1 mg Metronidazole (Flagyl) 500 mg PO BID [facility]; Protocol Last Admin: 10/13/18 09:51 Dose: 500 mg Scopolamine (Transderm-Scop) 1 patch TD Q3D [facility] Last Admin: 10/10/18 19:45 Dose: 1 patch Sodium Hypochlorite (Dakins Solution 0.25%) 0 ml TOP BID [facility] Last Admin: 10/13/18 10:21 Dose: 0.25 ml Attending/Attestation - Attestation I have personally seen and examined this patient.: Yes I have fully participated in the care of the patient.: Yes I have reviewed all pertinent clinical information, including history, physical exam and plan: Yes Notes (Text): 10/13/18 10:25 Medical attending: Patient was seen and examined by me. Agree with the above note by the resident The patient was able to open her eyes and look at me this morning, however went back to sleep. I spoke with nursing and they explain urine out put remains minimal Also the patient is at times very awake and requires the Dilaudid IV because of severe pain when she is moved or changed. This is even while she is on the morphine 8mg IV ggt. Amando Garcia
[2018-10-13] MEDS: Dakin's Topical 0.25%-Half Strength (480 ml) TOP SCH ×2 (10:21→18:28)
--- NOTE | 2018-10-14 00:38 | CP.PCM.PN ---
<Hernandez Escobar - Last Filed: 10/14/18 00:35> Subjective - Date & Time of Evaluation Date of Evaluation: 10/14/18 Time of Evaluation: 00:38 - Subjective Subjective: PGY-[address] Garcia Patient seen and examined at bedside. No complaints at this time, patient resting comfortably. She remains on Hospice. Objective - Vital Signs/Intake and Output Vital Signs (last 24 hours): Temp Pulse Resp BP Pulse Ox 98.5 F 115 H 20 87/55 L 99 10/14/18 00:12 10/14/18 00:12 10/14/18 00:12 10/14/18 00:12 10/14/18 00:12 Intake and Output: 10/13/18 10/14/18 18:59 06:59 Intake Total 264 264 Output Total 200 100 Balance 64 164 - Medications Medications: Current Medications Acetaminophen (Tylenol 325mg Tab) 650 mg PO Q6 PRN PRN Reason: fever Atropine Sulfate (Atropisol 1% Ophth) 0 ml SL Q4H PRN PRN Reason: For Secretions Hydromorphone HCl (Dilaudid) 2 mg IVP Q4H PRN PRN Reason: Pain, severe (8-10) Last Admin: 10/12/18 12:02 Dose: 2 mg Morphine Sulfate 100 mg/ (Sodium Chloride) 100 mls @ 8 mls/hr IV .[id number] PRN; Protocol PRN Reason: Pain, severe (8-10) Last Admin: 10/13/18 14:37 Dose: 8 mls/hr Lorazepam (Ativan) 1 mg IVP Q2H PRN PRN Reason: Anxiety Metronidazole (Flagyl) 500 mg PO DAILY [facility]; Protocol Scopolamine (Transderm-Scop) 1 patch TD Q3D [facility] Last Admin: 10/13/18 20:18 Dose: 1 patch Sodium Hypochlorite (Dakins Solution 0.25%) 0 ml TOP BID [facility] Last Admin: 10/13/18 18:28 Dose: Not Given - Labs Labs: - Constitutional Appears: Chronically Ill - Head Exam Head Exam: ATRAUMATIC, NORMOCEPHALIC - Eye Exam Eye Exam: EOMI, PERRL - ENT Exam ENT Exam: Mucous Membranes Dry - Respiratory Exam Respiratory Exam: Decreased Breath Sounds. absent: Rales, Rhonchi, Wheezes, Stridor - Cardiovascular Exam Cardiovascular Exam: Irregular Rhythm, +S1, +S2 - GI/Abdominal Exam GI & Abdominal Exam: Soft, Normal Bowel Sounds. absent: Guarding, Rigid, Tenderness - Extremities Exam Additional comments: Marked bilateral lymphedema Chronic wound on right lower leg with discharge and malodor - Neurological Exam Neurological Exam: Awake Assessment and Plan - Assessment and Plan (Free Text) Assessment: 77 year bedbound female with Afib, LE lymphedema, morbid OB, breast CA s/p lumpe ctomy, sacral ulcer, CAD who was brought in by her [facility] for increased right leg swelling. Patient found to be in septic shock with multiple infection sources including UTI, leg cellulitis, sacral ulcer, possible colitis. Also in Afib RVR. Currently hospice - DNR/DNI. Plan: Septic shock secondary to right lower extremity ischemia, UTI and sacral wounds Currently DNR/DNI and under hospice care. Morphine drip increased to 8cc/hr IV NS @ 25cc/hr IV Tylenol 650mg PO Q6 PRN Dilaudid 2mg Q4 PRN Ativan 1mg Q2 PRN Scopolamine patch 1 patch Q3 days Atropine sulfate eye drops Acute ischemia of RLE Currently on Hospice care Continue on Morphine drip, Ativan and Tylenol Scopolamine patch 1 patch Q3 days Atropine sulfate eye drops Flagyl 500mg PO crush and apply to lower extremities for odor control Dressings on lower extremities changed Chronic pain with opioid dependence Now Hospice DNR/DNI Morphine, Ativan, Dilaudid, Tylenol Afib with RVR Comfort measures only at this time since patient is on hospice History of breast cancer status post lumpectomy Comfort measures only as patient is currently hospice Case discussed with Dr. Radha Escobar, PGY1 <Amando Garcia H - Last Filed: 10/14/18 09:34> Objective - Vital Signs/Intake and Output Vital Signs (last 24 hours): Temp Pulse Resp BP Pulse Ox 98.3 F 115 H 20 87/55 L 99 10/14/18 07:00 10/14/18 00:12 10/14/18 00:12 10/14/18 00:12 10/14/18 00:12 Intake and Output: 10/14/18 10/14/18 06:59 18:59 Intake Total 264 Output Total 300 Balance -36 - Medications Medications: Current Medications Acetaminophen (Tylenol 325mg Tab) 650 mg PO Q6 PRN PRN Reason: fever Atropine Sulfate (Atropisol 1% Ophth) 0 ml SL Q4H PRN PRN Reason: For Secretions Hydromorphone HCl (Dilaudid) 2 mg IVP Q4H PRN PRN Reason: Pain, severe (8-10) Last Admin: 10/12/18 12:02 Dose: 2 mg Morphine Sulfate 100 mg/ (Sodium Chloride) 100 mls @ 8 mls/hr IV .[id number] PRN; Protocol PRN Reason: Pain, severe (8-10) Last Admin: 10/14/18 04:00 Dose: 8 mls/hr Lorazepam (Ativan) 1 mg IVP Q2H PRN PRN Reason: Anxiety Metronidazole (Flagyl) 500 mg PO PRN PRN; Protocol PRN Reason: Odor control Scopolamine (Transderm-Scop) 1 patch TD Q3D [facility] Last Admin: 10/13/18 20:18 Dose: 1 patch Sodium Hypochlorite (Dakins Solution 0.25%) 0 ml TOP BID [facility] Last Admin: 10/13/18 18:28 Dose: Not Given Attending/Attestation - Attestation I have personally seen and examined this patient.: Yes I have fully participated in the care of the patient.: Yes I have reviewed all pertinent clinical information, including history, physical exam and plan: Yes Notes (Text): 10/14/18 09:32 Medical attending: Patient was seen and examined by me. Agree with the above note by the resident The patient was not awake, she woke up only when her name was loudly called and then went back to sleep. Overall she appears comfortable The staff explain she does have agitation when they try dressing changes. Otherwise will continue with the current regimen at this time Amando Garcia
[2018-10-14] MEDS: Morphine 100 MG in Sodium Chloride 0.9% 90 ML IV PRN ×2 (04:00→14:18)
[2018-10-14] MEDS: Dakin's Topical 0.25%-Half Strength (480 ml) TOP SCH ×3 (10:21→20:47)
[2018-10-15] MEDS: Morphine 100 MG in Sodium Chloride 0.9% 90 ML IV PRN ×2 (03:06→16:02)
--- NOTE | 2018-10-15 07:46 | CP.PCM.PN ---
<Roxann Cha - Last Filed: 10/15/18 16:20> Subjective - Date & Time of Evaluation Date of Evaluation: 10/15/18 Time of Evaluation: 07:45 - Subjective Subjective: Progress Note for Dr. Garcia Patient seen and examined at bedside. She is resting comfortably, no acute complaints. She moans intermittently when asked if she is in pain. She remains in Hospice care. Objective - Vital Signs/Intake and Output Vital Signs (last 24 hours): Temp Pulse Resp BP Pulse Ox 98.3 F 118 H 18 81/56 L 98 10/14/18 23:10 10/14/18 23:10 10/14/18 23:10 10/14/18 23:10 10/14/18 23:10 Intake and Output: 10/15/18 10/15/18 06:59 18:59 Output Total 200 Balance -200 - Medications Medications: Current Medications Acetaminophen (Tylenol 325mg Tab) 650 mg PO Q6 PRN PRN Reason: fever Atropine Sulfate (Atropisol 1% Ophth) 0 ml SL Q4H PRN PRN Reason: For Secretions Hydromorphone HCl (Dilaudid) 2 mg IVP Q4H PRN PRN Reason: Pain, severe (8-10) Last Admin: 10/12/18 12:02 Dose: 2 mg Morphine Sulfate 100 mg/ (Sodium Chloride) 100 mls @ 8 mls/hr IV .[id number] PRN; Protocol PRN Reason: Pain, severe (8-10) Last Admin: 10/15/18 03:06 Dose: 8 mls/hr Lorazepam (Ativan) 1 mg IVP Q2H PRN PRN Reason: Anxiety Last Admin: 10/14/18 20:18 Dose: 1 mg Metronidazole (Flagyl) 500 mg PO DAILY PRN; Protocol PRN Reason: Odor control Scopolamine (Transderm-Scop) 1 patch TD Q3D [facility] Last Admin: 10/13/18 20:18 Dose: 1 patch Sodium Hypochlorite (Dakins Solution 0.25%) 0 ml TOP BID [facility] Last Admin: 10/14/18 20:47 Dose: Not Given - Constitutional Appears: Chronically Ill - Head Exam Head Exam: ATRAUMATIC, NORMOCEPHALIC - Eye Exam Eye Exam: EOMI, PERRL - ENT Exam ENT Exam: Mucous Membranes Dry - Respiratory Exam Respiratory Exam: Decreased Breath Sounds. absent: Rales, Rhonchi, Wheezes, Respiratory Distress, Stridor - Cardiovascular Exam Cardiovascular Exam: Irregular Rhythm, +S1, +S2. absent: Gallop, Rubs, Murmur - GI/Abdominal Exam GI & Abdominal Exam: Soft, Normal Bowel Sounds. absent: Guarding, Rigid, Tenderness - Extremities Exam Additional comments: Marked bilateral lymphedema Chronic wound on right lower leg with discharge and malodor. - Neurological Exam Additional comments: Somnolent, resting comfortably Assessment and Plan - Assessment and Plan (Free Text) Assessment: 77 year bedbound female with Afib, LE lymphedema, morbid OB, breast CA s/p lumpectomy, sacral ulcer, CAD who was brought in by her [facility] for increased right leg swelling. Patient found to be in septic shock with multiple infection sources including UTI, leg cellulitis, sacral ulcer, possible colitis. Also in Afib RVR. Currently hospice - DNR/DNI. Plan: Septic shock secondary to right lower extremity ischemia, UTI and sacral wounds Currently DNR/DNI and under hospice care. Morphine drip increased to 8cc/hr IV Tylenol 650mg PO Q6 PRN Dilaudid 2mg Q4 PRN Ativan 2mg Q2 PRN Scopolamine patch 1 patch Q3 days Atropine sulfate eye drops NS @ 15cc/hr IV Dakin's solution Acute ischemia of RLE Currently on Hospice care Continue on Morphine drip, Ativan and Tylenol Scopolamine patch 1 patch Q3 days Atropine sulfate eye drops Flagyl 500mg PO crush and apply to lower extremities for odor control Dressings on lower extremities changed Chronic pain with opioid dependence Now Hospice DNR/DNI Morphine, Ativan, Dilaudid, Tylenol Afib with RVR Comfort measures only at this time since patient is on hospice History of breast cancer status post lumpectomy Comfort measures only as patient is currently hospice Case discussed with Dr. Radha Cha, PGY1 <Amando Garcia H - Last Filed: 10/15/18 16:28> Objective - Vital Signs/Intake and Output Vital Signs (last 24 hours): Temp Pulse Resp BP Pulse Ox 98.0 F 102 H 18 93/60 L 93 L 10/15/18 15:00 10/15/18 15:00 10/15/18 15:00 10/15/18 15:00 10/15/18 15:00 Intake and Output: 10/15/18 10/15/18 06:59 18:59 Intake Total 64 Output Total 200 250 Balance -200 -186 - Medications Medications: Current Medications Acetaminophen (Tylenol 325mg Tab) 650 mg PO Q6 PRN PRN Reason: fever Atropine Sulfate (Atropisol 1% Ophth) 0 ml SL Q4H PRN PRN Reason: For Secretions Hydromorphone HCl (Dilaudid) 2 mg IVP Q4H PRN PRN Reason: Pain, severe (8-10) Last Admin: 10/12/18 12:02 Dose: 2 mg Morphine Sulfate 100 mg/ (Sodium Chloride) 100 mls @ 8 mls/hr IV .[id number] PRN; Protocol PRN Reason: Pain, severe (8-10) Last Admin: 10/15/18 16:02 Dose: 8 mls/hr Sodium Chloride (Sodium Chloride 0.9%) 1,000 mls @ 15 mls/hr IV .Q24H ONE Stop: 10/16/18 15:02 Lorazepam (Ativan) 2 mg IVP Q2H PRN PRN Reason: Anxiety Metronidazole (Flagyl) 500 mg PO DAILY PRN; Protocol PRN Reason: Odor control Last Admin: 10/15/18 11:31 Dose: 500 mg Scopolamine (Transderm-Scop) 1 patch TD Q3D [facility] Last Admin: 10/13/18 20:18 Dose: 1 patch Sodium Hypochlorite (Dakins Solution 0.25%) 0 ml TOP BID [facility] Last Admin: 10/15/18 10:35 Dose: 0.25 ml Attending/Attestation - Attestation I have personally seen and examined this patient.: Yes I have fully participated in the care of the patient.: Yes I have reviewed all pertinent clinical information, including history, physical exam and plan: Yes Notes (Text): 10/15/18 16:25 Medical attending: Patient was seen and examined by me as well. Agree with the above note by the resident The patient was able to open her eyes however that was the extent As mentioned before our goals at this time are to keep the patient as comfortable as possible. Amando Garcia
[2018-10-15] MEDS: Dakin's Topical 0.25%-Half Strength (480 ml) TOP SCH ×3 (10:31→18:38)
[2018-10-15] MEDS ORDERED: Sodium Chloride 0.9% 1,000 ML IV ONE (15:03)
[2018-10-16] MEDS: Morphine 100 MG in Sodium Chloride 0.9% 90 ML IV PRN ×2 (05:14→20:33)
--- NOTE | 2018-10-16 07:09 | CP.PCM.PN ---
<Frank Parrish - Last Filed: 10/16/18 11:40> Subjective - Date & Time of Evaluation Date of Evaluation: 10/16/18 Time of Evaluation: 07:09 - Subjective Subjective: PGY-1 Medicine progress note for Dr. Garcia Patient seen and examined at bedside. She is resting comfortably, no acute complaints. She remains in Hospice care. Objective - Vital Signs/Intake and Output Vital Signs (last 24 hours): Temp Pulse Resp BP Pulse Ox 98.4 F 120 H 20 97/67 L 96 10/15/18 23:49 10/15/18 23:49 10/15/18 23:49 10/15/18 23:49 10/15/18 23:49 Intake and Output: 10/16/18 10/16/18 06:59 18:59 Output Total 200 Balance -200 - Medications Medications: Current Medications Acetaminophen (Tylenol 325mg Tab) 650 mg PO Q6 PRN PRN Reason: fever Atropine Sulfate (Atropisol 1% Ophth) 0 ml SL Q4H PRN PRN Reason: For Secretions Hydromorphone HCl (Dilaudid) 2 mg IVP Q4H PRN PRN Reason: Pain, severe (8-10) Last Admin: 10/12/18 12:02 Dose: 2 mg Morphine Sulfate 100 mg/ (Sodium Chloride) 100 mls @ 8 mls/hr IV .[id number] PRN; Protocol PRN Reason: Pain, severe (8-10) Last Admin: 10/16/18 05:14 Dose: 8 mls/hr Sodium Chloride (Sodium Chloride 0.9%) 1,000 mls @ 15 mls/hr IV .Q24H ONE Stop: 10/16/18 15:02 Last Admin: 10/15/18 15:25 Dose: 15 mls/hr Lorazepam (Ativan) 2 mg IVP Q2H PRN PRN Reason: Anxiety Metronidazole (Flagyl) 500 mg PO DAILY PRN; Protocol PRN Reason: Odor control Last Admin: 10/15/18 11:31 Dose: 500 mg Scopolamine (Transderm-Scop) 1 patch TD Q3D [facility] Last Admin: 10/13/18 20:18 Dose: 1 patch Sodium Hypochlorite (Dakins Solution 0.25%) 0 ml TOP BID [facility] Last Admin: 10/15/18 18:38 Dose: 1 ml - Additional Findings Additional findings: - Constitutional Appears: Chronically Ill - Head Exam Head Exam: ATRAUMATIC, NORMOCEPHALIC - Eye Exam Eye Exam: EOMI, PERRL - ENT Exam ENT Exam: Mucous Membranes Dry - Respiratory Exam Respiratory Exam: Decreased Breath Sounds. absent: Rales, Rhonchi, Wheezes, Respiratory Distress, Stridor - Cardiovascular Exam Cardiovascular Exam: Irregular Rhythm, +S1, +S2. absent: Gallop, Rubs, Murmur - GI/Abdominal Exam GI & Abdominal Exam: Soft, Normal Bowel Sounds. absent: Guarding, Rigid, Tenderness - Extremities Exam Additional comments: Marked bilateral lymphedema Chronic wound on right lower leg with discharge and malodor. - Neurological Exam Additional comments: Somnolent, resting comfortably Assessment and Plan - Assessment and Plan (Free Text) Assessment: 77 year bedbound female with Afib, LE lymphedema, morbid OB, breast CA s/p lumpectomy, sacral ulcer, CAD who was brought in by her intermediate for increased right leg swelling. Patient found to be in septic shock with multiple infection sources including UTI, leg cellulitis, sacral ulcer, possible colitis. Also in Afib RVR. Currently hospice - DNR/DNI. Plan: Septic shock secondary to right lower extremity ischemia, UTI and sacral wounds Currently DNR/DNI and under hospice care. Morphine drip increased to 8cc/hr IV Tylenol 650mg PO Q6 PRN Dilaudid 2mg Q4 PRN Ativan 2mg Q2 PRN Scopolamine patch 1 patch Q3 days Atropine sulfate eye drops NS @ 15cc/hr IV Dakin's solution Acute ischemia of RLE Currently on Hospice care Continue on Morphine drip, Ativan and Tylenol Scopolamine patch 1 patch Q3 days Atropine sulfate eye drops Flagyl 500mg PO crush and apply to lower extremities for odor control Dressings on lower extremities changed Chronic pain with opioid dependence Now Hospice DNR/DNI Morphine, Ativan, Dilaudid, Tylenol Afib with RVR Comfort measures only at this time since patient is on hospice History of breast cancer status post lumpectomy Comfort measures only as patient is currently hospice Code status: HOSPICE: DNR/DNI Patient seen and case discussed with attending, Dr. Garcia. Frank Parrish, PGY-1 <Garcia,Peter H - Last Filed: 10/16/18 11:48> Objective - Vital Signs/Intake and Output Vital Signs (last 24 hours): Temp Pulse Resp BP Pulse Ox 98.2 F 60 18 114/72 95 10/16/18 07:00 10/16/18 07:00 10/16/18 07:00 10/16/18 07:00 10/16/18 07:00 Intake and Output: 10/16/18 10/16/18 06:59 18:59 Output Total 200 Balance -200 - Medications Medications: Current Medications Acetaminophen (Tylenol 325mg Tab) 650 mg PO Q6 PRN PRN Reason: fever Atropine Sulfate (Atropisol 1% Ophth) 0 ml SL Q4H PRN PRN Reason: For Secretions Hydromorphone HCl (Dilaudid) 2 mg IVP Q4H PRN PRN Reason: Pain, severe (8-10) Last Admin: 10/12/18 12:02 Dose: 2 mg Morphine Sulfate 100 mg/ (Sodium Chloride) 100 mls @ 8 mls/hr IV .[id number] PRN; Protocol PRN Reason: Pain, severe (8-10) Last Admin: 10/16/18 05:14 Dose: 8 mls/hr Sodium Chloride (Sodium Chloride 0.9%) 1,000 mls @ 15 mls/hr IV .Q24H ONE Stop: 10/16/18 15:02 Last Admin: 10/15/18 15:25 Dose: 15 mls/hr Lorazepam (Ativan) 2 mg IVP Q2H PRN PRN Reason: Anxiety Metronidazole (Flagyl) 500 mg PO DAILY PRN; Protocol PRN Reason: Odor control Last Admin: 10/15/18 11:31 Dose: 500 mg Scopolamine (Transderm-Scop) 1 patch TD Q3D [facility] Last Admin: 10/13/18 20:18 Dose: 1 patch Sodium Hypochlorite (Dakins Solution 0.25%) 0 ml TOP BID [facility] Last Admin: 10/16/18 10:34 Dose: Not Given Attending/Attestation - Attestation I have personally seen and examined this patient.: Yes I have fully participated in the care of the patient.: Yes I have reviewed all pertinent clinical information, including history, physical exam and plan: Yes Notes (Text): 10/16/18 11:47 Medical attending: Patient was seen and examined by me. Agree with the above The patient remains on the morphine ggt. She looked comfortable this morning and I did not want to awake her. The urine out put remains low as before Amando Garcia
[2018-10-16] MEDS: Dakin's Topical 0.25%-Half Strength (480 ml) TOP SCH ×2 (10:34→17:58)
[2018-10-16] MEDS ORDERED: Sodium Chloride 0.9% 1,000 ML IV SCH (17:45)
[2018-10-17] MEDS: Morphine 100 MG in Sodium Chloride 0.9% 90 ML IV PRN ×2 (06:31→18:08)
--- NOTE | 2018-10-17 07:09 | CP.PCM.PN ---
<Roxann Cha - Last Filed: 10/17/18 16:53> Subjective - Date & Time of Evaluation Date of Evaluation: 10/17/18 Time of Evaluation: 07:09 - Subjective Subjective: Progress Note for Dr. Garcia's service Patient seen and examined at bedside. She remains somnolent on Morphine drip as per Hospice recommendations. Patient produced 400 cc of urine overnight. Objective - Vital Signs/Intake and Output Vital Signs (last 24 hours): Temp Pulse Resp BP Pulse Ox 98.7 F 92 H 20 114/72 95 10/16/18 23:15 10/16/18 23:15 10/16/18 23:15 10/16/18 07:00 10/16/18 23:15 Intake and Output: 10/17/18 10/17/18 06:59 18:59 Output Total 400 Balance -400 - Medications Medications: Current Medications Acetaminophen (Tylenol 325mg Tab) 650 mg PO Q6 PRN PRN Reason: fever Atropine Sulfate (Atropisol 1% Ophth) 0 ml SL Q4H PRN PRN Reason: For Secretions Hydromorphone HCl (Dilaudid) 2 mg IVP Q4H PRN PRN Reason: Pain, severe (8-10) Last Admin: 10/12/18 12:02 Dose: 2 mg Morphine Sulfate 100 mg/ (Sodium Chloride) 100 mls @ 8 mls/hr IV .[id number] PRN; Protocol PRN Reason: Pain, severe (8-10) Last Admin: 10/17/18 06:31 Dose: 8 mls/hr Sodium Chloride (Sodium Chloride 0.9%) 1,000 mls @ 15 mls/hr IV .Q24H [facility] Last Admin: 10/16/18 17:56 Dose: 15 mls/hr Lorazepam (Ativan) 2 mg IVP Q2H PRN PRN Reason: Anxiety Last Admin: 10/16/18 22:44 Dose: 2 mg Metronidazole (Flagyl) 500 mg PO DAILY PRN; Protocol PRN Reason: Odor control Last Admin: 10/15/18 11:31 Dose: 500 mg Scopolamine (Transderm-Scop) 1 patch TD Q3D [facility] Last Admin: 10/16/18 20:42 Dose: 1 patch Sodium Hypochlorite (Dakins Solution 0.25%) 0 ml TOP BID [facility] Last Admin: 10/16/18 17:58 Dose: 1 ml - Constitutional Appears: Chronically Ill - Head Exam Head Exam: ATRAUMATIC, NORMOCEPHALIC - Eye Exam Eye Exam: EOMI, PERRL - ENT Exam ENT Exam: Mucous Membranes Dry - Respiratory Exam Respiratory Exam: Decreased Breath Sounds. absent: Rales, Rhonchi, Wheezes, Respiratory Distress - Cardiovascular Exam Cardiovascular Exam: Irregular Rhythm, +S1, +S2. absent: Gallop, Rubs, Murmur - GI/Abdominal Exam GI & Abdominal Exam: Soft, Normal Bowel Sounds. absent: Distended, Firm, Guarding, Rigid, Tenderness - Extremities Exam Additional comments: Marked bilateral lymphedema Chronic wound on right lower leg with discharge and malodor. - Neurological Exam Additional comments: Somnolent, resting comfortably Assessment and Plan - Assessment and Plan (Free Text) Assessment: 77 year bedbound female with Afib, LE lymphedema, morbid OB, breast CA s/p lumpectomy, sacral ulcer, CAD who [facility] in by [facility] for increased right leg swelling. Patient found to be in septic shock with multiple infection sources including UTI, leg cellulitis, sacral ulcer, possible colitis. Also in Afib RVR. Currently hospice - DNR/DNI. Plan: Septic shock secondary to right lower extremity ischemia, UTI and sacral wounds Currently DNR/DNI and under hospice care. Morphine drip 9cc/hr IV Tylenol 650mg PO Q6 PRN Dilaudid 2mg Q4 PRN Ativan 2mg Q2 PRN Scopolamine patch 1 patch Q3 days Atropine sulfate eye drops NS @ 10cc/hr IV Dakin's solution Acute ischemia of RLE Currently on Hospice care Continue on Morphine drip, Ativan and Tylenol Scopolamine patch 1 patch Q3 days Atropine sulfate eye drops Flagyl 500mg PO crush and apply to lower extremities for odor control Dressings on lower extremities changed Chronic pain with opioid dependence Now Hospice DNR/DNI Morphine, Ativan, Dilaudid, Tylenol Afib with RVR Comfort measures only at this time since patient is on hospice History of breast cancer status post lumpectomy Comfort measures only as patient is currently hospice Case discussed with Dr. Radha Cha, PGY1 <Garcia,Peter H - Last Filed: 10/17/18 18:10> Objective - Vital Signs/Intake and Output Vital Signs (last 24 hours): Temp Pulse Resp BP Pulse Ox 98.2 F 86 20 97/62 L 95 10/17/18 16:01 10/17/18 16:01 10/17/18 16:01 10/17/18 16:01 10/17/18 16:01 Intake and Output: 10/17/18 10/17/18 06:59 18:59 Intake Total 180 Output Total 400 Balance -400 180 - Medications Medications: Current Medications Acetaminophen (Tylenol 325mg Tab) 650 mg PO Q6 PRN PRN Reason: fever Atropine Sulfate (Atropisol 1% Ophth) 0 ml SL Q4H PRN PRN Reason: For Secretions Hydromorphone HCl (Dilaudid) 2 mg IVP Q4H PRN PRN Reason: Pain, severe (8-10) Sodium Chloride (Sodium Chloride 0.9%) 1,000 mls @ 10 mls/hr IV .Q24H [facility] Last Admin: 10/17/18 14:23 Dose: 10 mls/hr Morphine Sulfate 100 mg/ (Sodium Chloride) 100 mls @ 9 mls/hr IV .Q11H7M PRN; Protocol PRN Reason: Pain, severe (8-10) Lorazepam (Ativan) 2 mg IVP Q2H PRN PRN Reason: Anxiety Last Admin: 10/16/18 22:44 Dose: 2 mg Metronidazole (Flagyl) 500 mg PO DAILY PRN; Protocol PRN Reason: Odor control Last Admin: 10/17/18 11:24 Dose: 500 mg Scopolamine (Transderm-Scop) 1 patch TD Q3D [facility] Last Admin: 10/16/18 20:42 Dose: 1 patch Sodium Hypochlorite (Dakins Solution 0.25%) 0 ml TOP BID [facility] Last Admin: 10/17/18 10:23 Dose: 0.25 ml Attending/Attestation - Attestation I have personally seen and examined this patient.: Yes I have fully participated in the care of the patient.: Yes I have reviewed all pertinent clinical information, including history, physical exam and plan: Yes Notes (Text): 10/17/18 18:07 Medical attending: Patient was seen and examined by me. Agree with the above note by the remote medical coder The patient appeared comfortable - she only briefly opened her eyes when her name was called. She remains on the morphine ggt, I was later notified that later in day hospice recommenced the dose be increased Amando Garcia
[2018-10-17] MEDS: Dakin's Topical 0.25%-Half Strength (480 ml) TOP SCH ×2 (10:23→18:49)
[2018-10-17] MEDS: Sodium Chloride 0.9% 1,000 ML IV SCH (14:23)
[2018-10-17] MEDS: HYDROmorphone 1 mg/ml ISec IVP PRN (14:27)
[2018-10-18] MEDS: Morphine 100 MG in Sodium Chloride 0.9% 90 ML IV PRN ×2 (06:35→18:46)
--- NOTE | 2018-10-18 06:59 | CP.PCM.PN ---
<Roxann Cha - Last Filed: 10/18/18 16:55> Subjective - Date & Time of Evaluation Date of Evaluation: 10/18/18 Time of Evaluation: 06:59 - Subjective Subjective: Progress Note for Dr. Garcia's service Patient seen and examined at bedside. She is sleeping on Morphine drip. Family not present at bedside. Objective - Vital Signs/Intake and Output Vital Signs (last 24 hours): Temp Pulse Resp BP Pulse Ox 99 F 117 H 18 100/63 93 L 10/17/18 23:20 10/17/18 23:20 10/17/18 23:20 10/17/18 23:20 10/17/18 23:20 Intake and Output: 10/17/18 10/18/18 18:59 06:59 Intake Total 180 Output Total 150 Balance 180 -150 - Medications Medications: Current Medications Acetaminophen (Tylenol 325mg Tab) 650 mg PO Q6 PRN PRN Reason: fever Atropine Sulfate (Atropisol 1% Oph) 0 ml SL Q4H PRN PRN Reason: For Secretions Hydromorphone HCl (Dilaudid) 2 mg IVP Q4H PRN PRN Reason: Pain, severe (8-10) Sodium Chloride (Sodium Chloride 0.9%) 1,000 mls @ 10 mls/hr IV .Q24H [facility] Last Admin: 10/17/18 14:23 Dose: 10 mls/hr Morphine Sulfate 100 mg/ (Sodium Chloride) 100 mls @ 9 mls/hr IV .Q11H7M PRN; Protocol PRN Reason: Pain, severe (8-10) Last Admin: 10/18/18 06:35 Dose: 9 mls/hr Lorazepam (Ativan) 2 mg IVP Q2H PRN PRN Reason: Anxiety Last Admin: 10/16/18 22:44 Dose: 2 mg Metronidazole (Flagyl) 500 mg PO DAILY PRN; Protocol PRN Reason: Odor control Last Admin: 10/17/18 11:24 Dose: 500 mg Scopolamine (Transderm-Scop) 1 patch TD Q3D [facility] Last Admin: 10/16/18 20:42 Dose: 1 patch Sodium Hypochlorite (Dakins Solution 0.25%) 0 ml TOP BID [facility]FAEL Last Admin: 10/17/18 18:49 Dose: 1 applic - Constitutional Appears: Chronically Ill - Head Exam Head Exam: ATRAUMATIC, NORMOCEPHALIC - ENT Exam ENT Exam: Mucous Membranes Dry - Respiratory Exam Respiratory Exam: Decreased Breath Sounds. absent: Rales, Rhonchi, Wheezes, Respiratory Distress, Stridor - Cardiovascular Exam Cardiovascular Exam: Irregular Rhythm, +S1, +S2. absent: Gallop, Rubs, Murmur - GI/Abdominal Exam GI & Abdominal Exam: Soft, Normal Bowel Sounds. absent: Guarding, Rigid, Tenderness - Extremities Exam Additional comments: Marked bilateral lymphedema Chronic wound on right lower leg with discharge and malodor. - Neurological Exam Additional comments: Somnolent, resting comfortably. Assessment and Plan - Assessment and Plan (Free Text) Assessment: 77 year bedbound female with Afib, LE lymphedema, morbid OB, breast CA s/p lumpectomy, sacral ulcer, CAD who was brought in by her residential for increased right leg swelling. Patient found to be in septic shock with multiple infection sources including UTI, leg cellulitis, sacral ulcer, possible colitis. Also in Afib RVR. Currently hospice - DNR/DNI. Plan: Septic shock secondary to right lower extremity ischemia, UTI and sacral wounds Currently DNR/DNI and under hospice care. Morphine drip 9cc/hr IV Tylenol 650mg PO Q6 PRN Dilaudid 2mg Q4 PRN Ativan 2mg Q2 PRN Scopolamine patch 1 patch Q3 days Atropine sulfate eye drops NS @ 10cc/hr IV Dakin's solution Acute ischemia of RLE Currently on Hospice care Continue on Morphine drip, Ativan and Tylenol Scopolamine patch 1 patch Q3 days Atropine sulfate eye drops Flagyl 500mg PO crush and apply to lower extremities for odor control Dressings on lower extremities changed Chronic pain with opioid dependence Now Hospice DNR/DNI Morphine, Ativan, Dilaudid, Tylenol Afib with RVR Comfort measures only at this time since patient is on hospice History of breast cancer status post lumpectomy Comfort measures only as patient is currently hospice Case discussed with Dr. Radha Cha, PGY1 <Amando Garcia - Last Filed: 10/19/18 07:27> Objective - Vital Signs/Intake and Output Vital Signs (last 24 hours): Temp Pulse Resp BP Pulse Ox 98.1 F 125 H 16 100/64 90 L 10/18/18 23:10 10/18/18 23:10 10/18/18 23:10 10/18/18 23:10 10/18/18 23:10 Intake and Output: 10/19/18 10/19/18 06:59 18:59 Output Total 300 Balance -300 - Medications Medications: Current Medications Acetaminophen (Tylenol 325mg Tab) 650 mg PO Q6 PRN PRN Reason: fever Atropine Sulfate (Atropisol 1% Ophth) 0 ml SL Q4H PRN PRN Reason: For Secretions Hydromorphone HCl (Dilaudid) 2 mg IVP Q4H PRN PRN Reason: Pain, severe (8-10) Sodium Chloride (Sodium Chloride 0.9%) 1,000 mls @ 10 mls/hr IV .Q24H [facility] Last Admin: 10/18/18 15:00 Dose: 10 mls/hr Morphine Sulfate 100 mg/ (Sodium Chloride) 100 mls @ 9 mls/hr IV .Q11H7M PRN; Protocol PRN Reason: Pain, severe (8-10) Last Admin: 10/19/18 06:11 Dose: 9 mls/hr Lorazepam (Ativan) 2 mg IVP Q2H PRN PRN Reason: Anxiety Last Admin: 10/16/18 22:44 Dose: 2 mg Metronidazole (Flagyl) 500 mg PO DAILY PRN; Protocol PRN Reason: Odor control Last Admin: 10/19/18 06:34 Dose: 500 mg Scopolamine (Transderm-Scop) 1 patch TD Q3D [facility] Last Admin: 10/16/18 20:42 Dose: 1 patch Sodium Hypochlorite (Dakins Solution 0.25%) 0 ml TOP BID [facility] Last Admin: 10/18/18 17:20 Dose: Not Given Attending/Attestation - Attestation I have personally seen and examined this patient.: Yes I have fully participated in the care of the patient.: Yes I have reviewed all pertinent clinical information, including history, physical exam and plan: Yes Notes (Text): 10/19/18 07:26 Medical attending: Patient was seen and examined by me as well, agree with the above note by the resident I do not have much to add to the note. We are continuing with keep her as comfortable as possible at this time. thank you Amando Garcia
[2018-10-18] MEDS: Dakin's Topical 0.25%-Half Strength (480 ml) TOP SCH ×2 (10:50→17:20)
[2018-10-18] MEDS: Sodium Chloride 0.9% 1,000 ML IV SCH (15:00)
[2018-10-19] MEDS: Morphine 100 MG in Sodium Chloride 0.9% 90 ML IV PRN ×2 (06:11→17:27)
--- NOTE | 2018-10-19 06:52 | CP.PCM.PN ---
<Roxann Cha - Last Filed: 10/19/18 17:19> Subjective - Date & Time of Evaluation Date of Evaluation: 10/19/18 Time of Evaluation: 06:52 - Subjective Subjective: Progress Note for Dr. Garcia's service Patient seen and examined at bedside. Patient is resting comfortably on Morphine drip. Father present at bedside. Objective - Vital Signs/Intake and Output Vital Signs (last 24 hours): Temp Pulse Resp BP Pulse Ox 98.1 F 125 H 16 100/64 90 L 10/18/18 23:10 10/18/18 23:10 10/18/18 23:10 10/18/18 23:10 10/18/18 23:10 Intake and Output: 10/18/18 10/19/18 18:59 06:59 Output Total 300 Balance -300 - Medications Medications: Current Medications Acetaminophen (Tylenol 325mg Tab) 650 mg PO Q6 PRN PRN Reason: fever Atropine Sulfate (Atropisol 1% Ophth) 0 ml SL Q4H PRN PRN Reason: For Secretions Hydromorphone HCl (Dilaudid) 2 mg IVP Q4H PRN PRN Reason: Pain, severe (8-10) Sodium Chloride (Sodium Chloride 0.9%) 1,000 mls @ 10 mls/hr IV .Q24H [facility] Last Admin: 10/18/18 15:00 Dose: 10 mls/hr Morphine Sulfate 100 mg/ (Sodium Chloride) 100 mls @ 9 mls/hr IV .Q11H7M PRN; Protocol PRN Reason: Pain, severe (8-10) Last Admin: 10/19/18 06:11 Dose: 9 mls/hr Lorazepam (Ativan) 2 mg IVP Q2H PRN PRN Reason: Anxiety Last Admin: 10/16/18 22:44 Dose: 2 mg Metronidazole (Flagyl) 500 mg PO DAILY PRN; Protocol PRN Reason: Odor control Last Admin: 10/19/18 06:34 Dose: 500 mg Scopolamine (Transderm-Scop) 1 patch TD Q3D [facility] Last Admin: 10/16/18 20:42 Dose: 1 patch Sodium Hypochlorite (Dakins Solution 0.25%) 0 ml TOP BID [facility] Last Admin: 10/18/18 17:20 Dose: Not Given - Constitutional Appears: Chronically Ill - Head Exam Head Exam: ATRAUMATIC, NORMOCEPHALIC - ENT Exam ENT Exam: Mucous Membranes Dry - Respiratory Exam Respiratory Exam: Decreased Breath Sounds, Rhonchi. absent: Rales, Wheezes, Respiratory Distress, Stridor - Cardiovascular Exam Cardiovascular Exam: Irregular Rhythm, +S1, +S2 - GI/Abdominal Exam GI & Abdominal Exam: Soft, Normal Bowel Sounds. absent: Firm, Guarding, Rigid, Tenderness - Extremities Exam Additional comments: marked bilateral lymphedema chronic wound on right lower leg with discharge and malodor. - Neurological Exam Additional comments: somnolent, resting comfortably. Assessment and Plan - Assessment and Plan (Free Text) Assessment: 77 year bedbound female with Afib, LE lymphedema, morbid OB, breast CA s/p lumpectomy, sacral ulcer, CAD who was brought in by her custodial for increased right leg swelling. Patient found to be in septic shock with multiple infection sources including UTI, leg cellulitis, sacral ulcer, possible colitis. Also in Afib RVR. Currently hospice - DNR/DNI. Plan: Septic shock secondary to right lower extremity ischemia, UTI and sacral wounds Currently DNR/DNI and under hospice care. Morphine drip 9cc/hr IV Tylenol 650mg PO Q6 PRN Dilaudid 2mg Q4 PRN Ativan 2mg Q2 PRN Scopolamine patch 1 patch Q3 days Atropine sulfate eye drops NS @ 10cc/hr IV Dakin's solution Acute ischemia of RLE Currently on Hospice care Continue on Morphine drip, Ativan and Tylenol Scopolamine patch 1 patch Q3 days Atropine sulfate eye drops Flagyl 500mg PO crush and apply to lower extremities for odor control Dressings on lower extremities changed Chronic pain with opioid dependence Now Hospice DNR/DNI Morphine, Ativan, Dilaudid, Tylenol Afib with RVR Comfort measures only at this time since patient is on hospice History of breast cancer status post lumpectomy Comfort measures only as patient is currently hospice Case discussed with Dr. Radha Cha, PGY1 <Amando Garcia - Last Filed: 10/19/18 17:34> Objective - Vital Signs/Intake and Output Vital Signs (last 24 hours): Temp Pulse Resp BP Pulse Ox 99.1 F 126 H 16 68/44 L 126 H 05/17/19 15:00 10/19/18 15:00 10/19/18 15:00 10/19/18 15:00 10/19/18 15:00 Intake and Output: 10/19/18 10/19/18 06:59 18:59 Intake Total 154 Output Total 300 Balance -300 154 - Medications Medications: Current Medications Acetaminophen (Tylenol 325mg Tab) 650 mg PO Q6 PRN PRN Reason: fever Atropine Sulfate (Atropisol 1% Oph) 0 ml SL Q4H PRN PRN Reason: For Secretions Hydromorphone HCl (Dilaudid) 2 mg IVP Q4H PRN PRN Reason: Pain, severe (8-10) Sodium Chloride (Sodium Chloride 0.9%) 1,000 mls @ 10 mls/hr IV .Q24H [facility] Last Admin: 10/18/18 15:00 Dose: 10 mls/hr Morphine Sulfate 100 mg/ (Sodium Chloride) 100 mls @ 9 mls/hr IV .Q11H7M PRN; Protocol PRN Reason: Pain, severe (8-10) Last Admin: 10/19/18 17:27 Dose: 9 mls/hr Lorazepam (Ativan) 2 mg IVP Q2H PRN PRN Reason: Anxiety Last Admin: 10/19/18 15:13 Dose: 2 mg Scopolamine (Transderm-Scop) 1 patch TD Q3D [facility] Last Admin: 10/16/18 20:42 Dose: 1 patch Sodium Hypochlorite (Dakins Solution 0.25%) 0 ml TOP BID [facility] Last Admin: 10/19/18 10:12 Dose: Not Given Attending/Attestation - Attestation I have personally seen and examined this patient.: Yes I have fully participated in the care of the patient.: Yes I have reviewed all pertinent clinical information, including history, physical exam and plan: Yes
[2018-10-19] MEDS: Dakin's Topical 0.25%-Half Strength (480 ml) TOP SCH ×2 (10:12→19:22)
[2018-10-19] MEDS: Sodium Chloride 0.9% 1,000 ML IV SCH (15:50)
--- NOTE | 2018-10-20 01:51 | CP.PCM.PN ---
<Frank Parrish - Last Filed: 10/20/18 01:49> Subjective - Date & Time of Evaluation Date of Evaluation: 10/20/18 Time of Evaluation: 01:49 - Subjective Subjective: PGY-1 Medicine progress note for Dr. Garcia Patient seen and examined at bedside. Patient is resting comfortably on Morphine drip. Objective - Vital Signs/Intake and Output Vital Signs (last 24 hours): Temp Pulse Resp BP Pulse Ox 97.9 F 100 H 16 65/38 L 75 L 10/19/18 23:00 10/19/18 23:00 10/19/18 23:00 10/19/18 23:00 10/19/18 23:00 Intake and Output: 10/19/18 10/20/18 18:59 06:59 Intake Total 154 152 Output Total 100 Balance 154 52 - Medications Medications: Current Medications Acetaminophen (Tylenol 325mg Tab) 650 mg PO Q6 PRN PRN Reason: fever Atropine Sulfate (Atropisol 1% Ophth) 0 ml SL Q4H PRN PRN Reason: For Secretions Hydromorphone HCl (Dilaudid) 2 mg IVP Q4H PRN PRN Reason: Pain, severe (8-10) Sodium Chloride (Sodium Chloride 0.9%) 1,000 mls @ 10 mls/hr IV .Q24H [facility] Last Admin: 10/19/18 15:50 Dose: 10 mls/hr Morphine Sulfate 100 mg/ (Sodium Chloride) 100 mls @ 9 mls/hr IV .Q11H7M PRN; Protocol PRN Reason: Pain, severe (8-10) Last Admin: 10/19/18 17:27 Dose: 9 mls/hr Lorazepam (Ativan) 2 mg IVP Q2H PRN PRN Reason: Anxiety Last Admin: 10/19/18 15:13 Dose: 2 mg Scopolamine (Transderm-Scop) 1 patch TD Q3D [facility] Last Admin: 10/19/18 20:00 Dose: 1 patch Sodium Hypochlorite (Dakins Solution 0.25%) 0 ml TOP BID [facility] Last Admin: 10/19/18 19:22 Dose: Not Given - Additional Findings Additional findings: - Constitutional Appears: Chronically Ill - Head Exam Head Exam: ATRAUMATIC, NORMOCEPHALIC - ENT Exam ENT Exam: Mucous Membranes Dry - Respiratory Exam Respiratory Exam: Decreased Breath Sounds, Rhonchi. absent: Rales, Wheezes, Respiratory Distress, Stridor - Cardiovascular Exam Cardiovascular Exam: Irregular Rhythm, +S1, +S2 - GI/Abdominal Exam GI & Abdominal Exam: Soft, Normal Bowel Sounds. absent: Firm, Guarding, Rigid, Tenderness - Extremities Exam Additional comments: marked bilateral lymphedema chronic wound on right lower leg with discharge and malodor. - Neurological Exam Additional comments: somnolent, resting comfortably. Assessment and Plan - Assessment and Plan (Free Text) Assessment: 77 year bedbound female with Afib, LE lymphedema, morbid OB, breast CA s/p lumpectomy, sacral ulcer, CAD who was brought in by her [place] [facility] for increased right leg swelling. Patient found to be in septic shock with multiple infection sources including UTI, leg cellulitis, sacral ulcer, possible colitis. Also in Afib RVR. Currently hospice - DNR/DNI. Plan: Septic shock secondary to right lower extremity ischemia, UTI and sacral wounds Currently DNR/DNI and under hospice care. Morphine drip 9cc/hr IV Tylenol 650mg PO Q6 PRN Dilaudid 2mg Q4 PRN Ativan 2mg Q2 PRN Scopolamine patch 1 patch Q3 days Atropine sulfate eye drops NS @ 10cc/hr IV Dakin's solution Acute ischemia of RLE Currently on Hospice care Continue on Morphine drip, Ativan and Tylenol Scopolamine patch 1 patch Q3 days Atropine sulfate eye drops Flagyl 500mg PO crush and apply to lower extremities for odor control Dressings on lower extremities changed Chronic pain with opioid dependence Now Hospice DNR/DNI Morphine, Ativan, Dilaudid, Tylenol Afib with RVR Comfort measures only at this time since patient is on hospice History of breast cancer status post lumpectomy Comfort measures only as patient is currently hospice Case discussed with attending, Dr. Garcia. Frank Parrish, PGY-1 <Amando Garcia H - Last Filed: 10/20/18 09:42> Objective - Vital Signs/Intake and Output Vital Signs (last 24 hours): Temp Pulse Resp BP Pulse Ox 98.6 F 121 H 24 65/45 L 63 L 10/20/18 07:00 10/20/18 07:00 10/20/18 07:00 10/20/18 07:00 10/20/18 07:00 Intake and Output: 10/20/18 10/20/18 06:59 18:59 Intake Total 152 Output Total 150 Balance 2 - Medications Medications: Current Medications Acetaminophen (Tylenol 325mg Tab) 650 mg PO Q6 PRN PRN Reason: fever Atropine Sulfate (Atropisol 1% Ophth) 0 ml SL Q4H PRN PRN Reason: For Secretions Hydromorphone HCl (Dilaudid) 2 mg IVP Q4H PRN PRN Reason: Pain, severe (8-10) Sodium Chloride (Sodium Chloride 0.9%) 1,000 mls @ 10 mls/hr IV .Q24H [facility] Last Admin: 10/19/18 15:50 Dose: 10 mls/hr Morphine Sulfate 100 mg/ (Sodium Chloride) 100 mls @ 9 mls/hr IV .Q11H7M PRN; Protocol PRN Reason: Pain, severe (8-10) Last Admin: 10/20/18 04:19 Dose: 9 mls/hr Lorazepam (Ativan) 2 mg IVP Q2H PRN PRN Reason: Anxiety Last Admin: 10/19/18 15:13 Dose: 2 mg Scopolamine (Transderm-Scop) 1 patch TD Q3D [facility] Last Admin: 10/19/18 20:00 Dose: 1 patch Sodium Hypochlorite (Dakins Solution 0.25%) 0 ml TOP BID [facility] Last Admin: 10/19/18 19:22 Dose: Not Given Attending/Attestation - Attestation I have personally seen and examined this patient.: Yes I have fully participated in the care of the patient.: Yes I have reviewed all pertinent clinical information, including history, physical exam and plan: Yes Notes (Text): 10/20/18 09:40 Medical attending: Patient was seen and examined by me. Agree with the above note by the resident The patient appears comfortable at this time The patient they say had only 100 cc urine out overnight shift Also the BP remains low. She does not wake up they say. When they are changing the dressing the staff explain she appears to be in pain but only at that time thank you, at this time we continue with the current regimen to keep her as comfortable as possible Amando Garcia
[2018-10-20] MEDS: Morphine 100 MG in Sodium Chloride 0.9% 90 ML IV PRN (04:19)
[2018-10-20 07:50] VITALS: BP 65/45; PULSE 121; RESP 24; TEMP 98.6; O2SAT 63
[2018-10-20] MEDS: Dakin's Topical 0.25%-Half Strength (480 ml) TOP SCH (10:28)
--- NOTE | 2018-10-20 15:10 | CP.PCM.PRO ---
Pronouncement of Note - Clinical Findings Physical Exam: No Response Verbal/Painful Stimuli, Absent Peripheral Puls es{Carotid & Femoral}, Absent Heart & Breath Sounds, No Pupillary Light Reflex, No Corneal Reflex, Pupils Fixed & Dilated, Absence of Vital Signs - Pronouncement Time Time of Pronouncement of : 14:53 - Notifications Pronouncement Notifications: Family Notified, Atending Notified - [place] [id number]
--- NOTE | 2018-10-20 15:11 | CP.PCM.DIS ---
Provider - Provider Date of Admission: 10/06/18 15:38 Attending physician: Amando Garcia DO Consults: 10/06/18 17:02 Operations Representative [Case Management Referral] Routine Comment: Patient already seen by [facility] Physician Instructions: Patient already seen by [facility] Reason For Exam: Patient already seen by [facility] Reason for Referral: Hospice Eval Time Spent in preparation of Discharge (in minutes): 40 Diagnosis - Discharge Diagnosis (1) Septic shock Status: Chronic (2) Ischemia of extremity Status: Chronic (3) Wound of lower extremity Status: Chronic Hospital Course - Lab Results Lab Results: Micro Results 10/11/18 06:50 Naris MRSA Culture - Final MRSA NOT DETECTED - Hospital Course Hospital Course: On admission: Patient is a 77 year old female who has been in the ICU with sepsis and lower extremity limb ischemia. She is a bedbound female with Afib, Pulmonary HTN, e xtensive lower extremity lymphedema, morbid OB, breast CA s/p lumpectomy, sacral ulcer, CAD who was brought in by her long-term for increased right leg swelling. She has severe pain, especially with movement in the bed. The family explain that she is from a long-term. The patient was admitted to the ICU on 09/30 because of the R leg pain and swelling. She had cold toes and cold feet with no palpable pulses found. The patient had a CTA of the lower extremity showing there was in arterial obstruction there. She had overwhelming lymphedema and strong odor from the leg. She has had two surgical evaluation for potential amputation of the leg however because of her previous heart condition as well as the very large size of the leg, it would not be possible. She has had low blood pressure and on multiple IV abx, a bicarb ggt, and pressor medications. The family was informed from the beginning that the prognosis is poor. On 10/05/18 she was changed over to DNR and DNI status and on hospice with family present at bedside. [facility] came, Muna Carmen [phone] came and spoke with family Patient will have hospice here at hospital. There is already a morphine ggt at this time, ativan, and tylenol. Hospital course: Septic shock secondary to right lower extremity ischemia, UTI and sacral wounds Currently DNR/DNI and under hospice care. Morphine drip 9cc/hr IV Tylenol 650mg PO Q6 PRN Dilaudid 2mg Q4 PRN Ativan 2mg Q2 PRN Scopolamine patch 1 patch Q3 days Atropine sulfate eye drops NS @ 10cc/hr IV Dakin's solution Acute ischemia of RLE Currently on Hospice care Continue on Morphine drip, Ativan and Tylenol Scopolamine patch 1 patch Q3 days Atropine sulfate eye drops Flagyl 500mg PO crush and apply to lower extremities for odor control Dressings on lower extremities changed Chronic pain with opioid dependence Now Hospice DNR/DNI Morphine, Ativan, Dilaudid, Tylenol Afib with RVR Comfort measures only at this time since patient is on hospice History of breast cancer status post lumpectomy Comfort measures only as patient is currently hospice Discharge Exam - Head Exam Additional comments: Patient at 1453, with no peripheral pulses, no response to painful or verbal stimuli, absent heart and breath sounds, no pupillary light reflex, no corneal reflex with dilated and fixed pupils. Discharge Plan - Follow Up Plan Condition:
== END 2018-10-20 17:53 | DRG 872 ==
LOC: C.9I 15:38 → C.5S 10-10 18:57
PROVIDERS: ADMIT Hospitalist; ATTEND Hospitalist
DX: R65.21 Severe sepsis with septic shock (principal); N39.0 Urinary tract infection, site not specified; F11.20 Opioid dependence, uncomplicated; N17.9 Acute kidney failure, unspecified; E87.2 Acidosis; L03.119 Cellulitis of unspecified part of limb; I99.8 Other disorder of circulatory system; Z51.5 Encounter for palliative care; I27.20 Pulmonary hypertension, unspecified; I89.0 Lymphedema, not elsewhere classified; I48.91 Unspecified atrial fibrillation; C50.919 Malignant neoplasm of unspecified site of unspecified female breast; L98.429 Non-pressure chronic ulcer of back with unspecified severity; I50.9 Heart failure, unspecified; I11.0 Hypertensive heart disease with heart failure; J45.909 Unspecified asthma, uncomplicated; G89.29 Other chronic pain; I25.10 Atherosclerotic heart disease of native coronary artery without angina pectoris; E66.01 Morbid (severe) obesity due to excess calories; K52.9 Noninfective gastroenteritis and colitis, unspecified; Z66 Do not resuscitate; Z74.01 Bed confinement status; Z85.3 Personal history of malignant neoplasm of breast; Z90.49 Acquired absence of other specified parts of digestive tract; Z90.710 Acquired absence of both cervix and uterus